=== PATIENT | male | born 1970 | race Two or more races ===

== ENCOUNTER 2023-09-22 13:53 | Inpatient (IN) | payer MEDICAID, OTHER ==
[~2023-09-22] VITALS: Ht 185.4 cm; Wt 89.1 kg
[2023-09-22 16:16] LABS: Basophils # (auto) 0.1 10 ^3/uL (0-0.2); Basophils % (auto) 0.9 % (0.0-2.0); Eosinophils # (auto) 0.1 10 ^3/uL (0-0.8); Eosinophils % (auto) 1.5 % (0.0-7.0); Hematocrit 34.3 % (41.0-53.0); Hemoglobin 11.3 g/dL (13.5-17.5); Lymphocytes # (auto) 1.6 10 ^3/uL (0.4-5.4); Lymphocytes % (auto) 19.4 % (10.0-50.0); Mean Corpuscular Hemoglobin 28.1 pg (28.0-32.0); Mean Corpuscular Hgb Conc. 32.9 g/dL (32.0-36.0); Mean Corpuscular Volume 85.6 fL (80.0-100.0); Monocytes # (auto) 0.8 10 ^3/uL (0-1.3); Monocytes % (auto) 9.5 % (0.0-12.0); Neutrophils # (auto) 5.7 10 ^3/uL (1.6-8.6); Neutrophils % (auto) 68.7 % (37.0-80.0); Nucleated Red Blood Cells % 0.1 %; Red Blood Cells 4.01 10^6/uL (4.5-5.90); Red Cell Distribution Width 12.5 % (11.8-14.3); White Blood Cell 8.3 10^3/uL (4.4-10.8)
[2023-09-22 16:37] LABS: Alanine Aminotransferase 19 U/L (7-40); Alkaline Phosphatase 78 U/L (46-116); Calcium 8.3 mg/dL (8.7-10.4); Chloride 108 mmol/L (98-107)
[2023-09-22 16:38] LABS: Albumin 3.3 g/dL (3.2-4.8); Anion Gap 3 (5-15); Aspartate Aminotransferase 13 U/L (13-40); BUN/Creatinine Ratio 28.6 (10.0-20.0); Bilirubin, Total 0.4 mg/dL (0.2-1.0); Blood Urea Nitrogen 26 mg/dL (9-23); Carbon Dioxide 27 mmol/L (20-30); Glucose 177 mg/dL (74-106); Potassium 4.5 mmol/L (3.5-5.1); Sodium 138 mmol/L (136-145); Total Protein 5.6 g/dL (5.7-8.2)
[2023-09-22] MEDS ORDERED: ACETAMINOPHEN 325 MG TAB PO PRN (18:45)
[2023-09-22] MEDS ORDERED: DEXTROSE (50%) 50ML SYRG IV PRN (18:45)
[2023-09-22] MEDS ORDERED: HYDROcodone-ACET 5/325MG TAB PO PRN (18:45)
[2023-09-22] MEDS ORDERED: DOCUSATE SOD 100 MG CAP PO PRN (18:45)
[2023-09-22] MEDS ORDERED: NITROGLYCERIN 0.4 MG SL TAB SL PRN (18:45)
[2023-09-22] MEDS ORDERED: ONDANSETRON HCL 4 MG/2 ML VIAL IV PRN (18:45)
[2023-09-22] MEDS ORDERED: MORPHINE SULFATE INJ 2 MG/ml SYRG IV PRN ×2 (18:45)
[2023-09-22] MEDS: SODIUM CHLORIDE 0.9% 1,000 ML IV ONE (19:03)
[2023-09-22] MEDS: VANCOMYCIN 1GM/200ML 200 ML IV ONE (19:37)
[2023-09-22 19:44] VITALS: PULSE 88; RESP 18; O2SAT 98
[2023-09-23] MEDS: ceFAZolin 1GM/50ML 50 ML IV SCH (04:26)
[2023-09-23] MEDS: InsuLIN REG 1unit/0.01ml Soln (100units/ml) SC SCH (04:35)
[2023-09-23] MEDS: ACCU-CHEK COMFORT CURVE STRIP VI SCH (04:35)
[2023-09-23 05:32] LABS: Basophils # (auto) 0.1 10 ^3/uL (0-0.2); Basophils % (auto) 0.9 % (0.0-2.0); Eosinophils # (auto) 0.2 10 ^3/uL (0-0.8); Eosinophils % (auto) 2.6 % (0.0-7.0); Hematocrit 35.3 % (41.0-53.0); Hemoglobin 11.6 g/dL (13.5-17.5); Lymphocytes # (auto) 1.7 10 ^3/uL (0.4-5.4); Lymphocytes % (auto) 23.6 % (10.0-50.0); Mean Corpuscular Hemoglobin 27.8 pg (28.0-32.0); Mean Corpuscular Volume 84.5 fL (80.0-100.0); Monocytes # (auto) 0.7 10 ^3/uL (0-1.3); Monocytes % (auto) 9.9 % (0.0-12.0); Neutrophils # (auto) 4.4 10 ^3/uL (1.6-8.6); Nucleated Red Blood Cells % 0.1 %; Red Blood Cells 4.18 10^6/uL (4.5-5.90); Red Cell Distribution Width 12.8 % (11.8-14.3)
[2023-09-23 05:43] LABS: Alanine Aminotransferase 14 U/L (7-40); Albumin 3.6 g/dL (3.2-4.8); Alkaline Phosphatase 81 U/L (46-116); Anion Gap 5 (5-15); Aspartate Aminotransferase 12 U/L (13-40); BUN/Creatinine Ratio 20.9 (10.0-20.0); Blood Urea Nitrogen 18 mg/dL (9-23); Calcium 8.7 mg/dL (8.7-10.4); Carbon Dioxide 27 mmol/L (20-30); Chloride 108 mmol/L (98-107); Glucose 180 mg/dL (74-106); Sodium 140 mmol/L (136-145)
[2023-09-23 05:44] LABS: Bilirubin, Total 0.5 mg/dL (0.2-1.0); Total Protein 6.5 g/dL (5.7-8.2)
[2023-09-23 07:22] VITALS: PULSE 88; RESP 18; O2SAT 98
[2023-09-23 12:19] LABS: INR 0.95 (0.9-1.15); Partial Thromboplastin Time 26.1 SEC (24.5-34.5); Prothrombin Time 10.1 sec (9.3-11.8)
[2023-09-23 13:06] LABS: Magnesium 1.9 mg/dL (1.6-2.6)
[2023-09-23 13:08] LABS: Phosphorus 3.2 mg/dL (2.4-5.1)
[2023-09-23] MEDS: ERGOCALCIFEROL 50,000 UNIT(1.25MG) CAP PO SCH (21:45)
[2023-09-23] MEDS: ENALAPRIL MALEATE 2.5 MG TAB PO SCH (22:29)
[2023-09-23] MEDS: ATORVASTATIN 20 MG TAB PO SCH (22:29)
[2023-09-23 22:45] VITALS: PULSE 99; RESP 18; O2SAT 98
[2023-09-23 23:24] VITALS: BP 207/96; PULSE 75; PULSE 92; RESP 18; RESP 19; TEMP 98.4; O2SAT 98
[2023-09-23] MEDS: hydrALAZINE HCL 20 MG/ML VL IV PRN (23:26)
[2023-09-24] VITALS (8 sets, daily range): BP systolic 132–180; BP diastolic 66–81; PULSE 69–100; RESP 17–19; TEMP 98–99.1; O2SAT 97–98
[2023-09-24] MEDS: dilTIAZem 25 MG/5 ML VIAL IV ONE (01:18)
[2023-09-24] MEDS ORDERED: METF-370 PO (02:28)
[2023-09-24] MEDS: cloNIDine HCL 0.1 MG TAB PO ONE (03:17)
[2023-09-24 05:53] LABS: Basophils # (auto) 0 10 ^3/uL (0-0.2); Basophils % (auto) 0.4 % (0.0-2.0); Eosinophils # (auto) 0.1 10 ^3/uL (0-0.8); Eosinophils % (auto) 1.6 % (0.0-7.0); Hematocrit 31.2 % (41.0-53.0); Hemoglobin 10.5 g/dL (13.5-17.5); Lymphocytes # (auto) 1.3 10 ^3/uL (0.4-5.4); Lymphocytes % (auto) 18.3 % (10.0-50.0); Mean Corpuscular Hemoglobin 28.8 pg (28.0-32.0); Mean Corpuscular Hgb Conc. 33.8 g/dL (32.0-36.0); Mean Corpuscular Volume 85.2 fL (80.0-100.0); Monocytes # (auto) 0.7 10 ^3/uL (0-1.3); Monocytes % (auto) 10.2 % (0.0-12.0); Neutrophils # (auto) 5.1 10 ^3/uL (1.6-8.6); Neutrophils % (auto) 69.5 % (37.0-80.0); Nucleated Red Blood Cells % 0.1 %; Red Blood Cells 3.66 10^6/uL (4.5-5.90); Red Cell Distribution Width 12.5 % (11.8-14.3); White Blood Cell 7.3 10^3/uL (4.4-10.8)
[2023-09-24 06:04] LABS: Alanine Aminotransferase 11 U/L (7-40); Albumin 2.9 g/dL (3.2-4.8); Alkaline Phosphatase 69 U/L (46-116); Anion Gap 5 (5-15); Aspartate Aminotransferase 11 U/L (13-40); BUN/Creatinine Ratio 21.8 (10.0-20.0); Blood Urea Nitrogen 17 mg/dL (9-23); Calcium 8.5 mg/dL (8.7-10.4); Carbon Dioxide 27 mmol/L (20-30); Chloride 109 mmol/L (98-107); Glucose 172 mg/dL (74-106); Magnesium 1.7 mg/dL (1.6-2.6); Potassium 3.6 mmol/L (3.5-5.1); Sodium 141 mmol/L (136-145)
[2023-09-24 06:05] LABS: Bilirubin, Total 0.5 mg/dL (0.2-1.0); Phosphorus 3.5 mg/dL (2.4-5.1); Total Protein 5.5 g/dL (5.7-8.2)
[2023-09-24] MEDS: FUROSEMIDE 20 MG/2 ML VIAL IV SCH (06:23)
[2023-09-24] MEDS: ASPirin 81 mg TAB PO SCH (10:16)
[2023-09-24 10:24] LABS: Urine Bacteria FEW /hpf (None Seen); Urine Blood TRACE /uL (Negative); Urine Clarity Clear (Clear); Urine Color Light-Yellow (Yellow); Urine Mucus FEW (None Seen); Urine Protein, UAD 1+ (Negative); Urine Specific Gravity 1.009 (1.001-1.035); Urine Sperm PRESENT /hpf (None Seen); Urine Urobilinogen Normal (Negative); Urine WBC 2 /hpf (0 - 3); Urine pH 5.5 (5.0-9.0)
[2023-09-24 10:29] LABS: Amphetamine Screen, Urine Neg (NEGATIVE)
[2023-09-24 10:31] LABS: Barbiturate Scree,Urine Neg (NEGATIVE); Benzodiazephine Screen, Urine Neg (NEGATIVE); Cannabinoid Screen, Urine Neg (NEGATIVE); Cocaine Screen, Urine Neg (NEGATIVE); Opiate Scree,Urine Neg (NEGATIVE); Phencyclidine Screen, Urine Neg (NEGATIVE)
[2023-09-24] MEDS ORDERED: MORPHINE SULFATE 4 MG/ML SYR/VIAL IV PRN ×2 (20:45)
[2023-09-24] MEDS: DAKINS QUARTER STR 0.125% (NaHypochlorite) 473 ML TOPICAL SOL TOP SCH (21:55)
[2023-09-25] VITALS (7 sets, daily range): BP systolic 143–175; BP diastolic 68–92; PULSE 72–81; RESP 17–19; TEMP 97.8–98.7; O2SAT 97–99
[2023-09-25 06:50] LABS: Basophils # (auto) 0.1 10 ^3/uL (0-0.2); Basophils % (auto) 0.7 % (0.0-2.0); Eosinophils # (auto) 0.2 10 ^3/uL (0-0.8); Eosinophils % (auto) 2.2 % (0.0-7.0); Hematocrit 32.9 % (41.0-53.0); Hemoglobin 11.1 g/dL (13.5-17.5); Lymphocytes % (auto) 26.4 % (10.0-50.0); Mean Corpuscular Hemoglobin 28.5 pg (28.0-32.0); Mean Corpuscular Hgb Conc. 33.7 g/dL (32.0-36.0); Mean Corpuscular Volume 84.5 fL (80.0-100.0); Monocytes # (auto) 0.8 10 ^3/uL (0-1.3); Monocytes % (auto) 10.3 % (0.0-12.0); Neutrophils # (auto) 4.6 10 ^3/uL (1.6-8.6); Neutrophils % (auto) 60.4 % (37.0-80.0); Red Blood Cells 3.89 10^6/uL (4.5-5.90); Red Cell Distribution Width 12.6 % (11.8-14.3); White Blood Cell 7.7 10^3/uL (4.4-10.8)
[2023-09-25 07:10] LABS: Anion Gap 6 (5-15); Carbon Dioxide 28 mmol/L (20-30); Chloride 106 mmol/L (98-107); Potassium 3.7 mmol/L (3.5-5.1); Sodium 140 mmol/L (136-145)
[2023-09-25 07:11] LABS: Calcium 8.8 mg/dL (8.7-10.4)
[2023-09-25 07:16] LABS: BUN/Creatinine Ratio 17.9 (10.0-20.0); Blood Urea Nitrogen 15 mg/dL (9-23); Glucose 120 mg/dL (74-106)
[2023-09-25 09:09] LABS: Hepatitis B Surface Antigen Negative (Negative)
[2023-09-25 09:31] LABS: Hepatitis C Antibody Negative (Negative)
[2023-09-25] MEDS ORDERED: METF-372 PO (12:10)
[2023-09-25] MEDS ORDERED: ERGO1CAP23 PO (12:10)
[2023-09-25] MEDS ORDERED: ENAL1TAB42 PO (12:10)
[2023-09-25] MEDS ORDERED: CEPH250C PO (12:10)
[2023-09-25] MEDS ORDERED: EMPA1TAB PO (12:10)
[2023-09-25] MEDS ORDERED: ATOR20TA50 PO (12:10)
[2023-09-25] MEDS ORDERED: ASPI-325 PO (12:10)
[2023-09-25] MEDS ORDERED: ACET-1882 PO (12:10)
== END 2023-09-25 17:15 | disposition home or self-care (01) | DRG 380 ==
LOC: ER 13:53 → OVERFLOW 18:43 → WEST WING 09-23 23:08
PROVIDERS: ADMIT Internal Medicine; ATTEND Student in an Organized Health Care Education/Training Program
DX: E11.621 Type 2 diabetes mellitus with foot ulcer (principal); L97.519 Non-pressure chronic ulcer of other part of right foot with unspecified severity; E11.51 Type 2 diabetes mellitus with diabetic peripheral angiopathy without gangrene; S91.301A Unspecified open wound, right foot, initial encounter; D64.9 Anemia, unspecified; E55.9 Vitamin D deficiency, unspecified; L03.031 Cellulitis of right toe; E78.5 Hyperlipidemia, unspecified; I10 Essential (primary) hypertension; X58.XXXA Exposure to other specified factors, initial encounter; Y93.89 Activity, other specified; Y92.89 Other specified places as the place of occurrence of the external cause; Y99.8 Other external cause status
CPT/HCPCS: 36415; 73630; 80048; 80053; 80061; 80307; 81001; 82306; 82607; 82962; 83036; 83605; 83735; 83880; 84100; 84443; 85025; 85610; 85730; 86803; 87040; 87077; 87086; 87186; 87205; 87340; 93005; 93306; 93925; 93971; G0378; J1815

== ENCOUNTER 2023-10-11 16:06 | Emergency (ER) | payer MEDICAID ==
[~2023-10-11] VITALS: Ht 188 cm; Wt 83.8 kg
[~2023-10-11 16:06] MED LIST: ACET-1882 PO; ASPI-325 PO; ATOR20TA50 PO; CEPH250C PO; EMPA1TAB PO; ENAL1TAB42 PO; ERGO1CAP23 PO; METF-372 PO
[2023-10-11 16:58] VITALS: BP 132/77; PULSE 99; RESP 18; TEMP 97.9; O2SAT 98
[2023-10-11] MEDS ORDERED: BACDST PO (17:24)
[2023-10-11] MEDS ORDERED: CEPH500T PO (17:24)
[2023-10-11] MEDS: cefTRIAXone SOD 1,000 MG VL IM ONE (17:26)
== END 2023-10-11 17:39 | disposition home or self-care (01) ==
LOC: ER 16:06
DX: S91.332A Puncture wound without foreign body, left foot, initial encounter (principal); L08.89 Other specified local infections of the skin and subcutaneous tissue; I10 Essential (primary) hypertension; E11.9 Type 2 diabetes mellitus without complications; E78.5 Hyperlipidemia, unspecified; Z79.899 Other long term (current) drug therapy; W22.8XXA Striking against or struck by other objects, initial encounter; Y93.89 Activity, other specified; Y92.89 Other specified places as the place of occurrence of the external cause; Y99.8 Other external cause status
CPT/HCPCS: 96372; 99283; J0696

== ENCOUNTER 2023-10-28 13:28 | Inpatient (IN) | payer MEDICAID ==
[~2023-10-28] VITALS: Ht 188 cm; Wt 84.0 kg
[~2023-10-28 13:28] MED LIST changes: +BACDST PO; +CEPH500T PO
[2023-10-28 15:08] LABS: Basophils # (auto) 0.1 10 ^3/uL (0-0.2); Eosinophils # (auto) 0.1 10 ^3/uL (0-0.8); Eosinophils % (auto) 1.8 % (0.0-7.0); Hematocrit 31.6 % (41.0-53.0); Hemoglobin 10.6 g/dL (13.5-17.5); Lymphocytes # (auto) 1.2 10 ^3/uL (0.4-5.4); Lymphocytes % (auto) 17.2 % (10.0-50.0); Mean Corpuscular Hemoglobin 28.2 pg (28.0-32.0); Mean Corpuscular Hgb Conc. 33.4 g/dL (32.0-36.0); Mean Corpuscular Volume 84.6 fL (80.0-100.0); Monocytes # (auto) 0.6 10 ^3/uL (0-1.3); Monocytes % (auto) 8.7 % (0.0-12.0); Neutrophils % (auto) 71.3 % (37.0-80.0); Nucleated Red Blood Cells % 0.1 %; Red Blood Cells 3.74 10^6/uL (4.5-5.90); Red Cell Distribution Width 13.4 % (11.8-14.3)
[2023-10-28 15:30] LABS: Alanine Aminotransferase 16 U/L (7-40); Albumin 3.8 g/dL (3.2-4.8); Alkaline Phosphatase 97 U/L (46-116); Anion Gap 3 (5-15); Aspartate Aminotransferase 15 U/L (13-40); BUN/Creatinine Ratio 24.7 (10.0-20.0); Bilirubin, Total 0.7 mg/dL (0.2-1.0); Blood Urea Nitrogen 23 mg/dL (9-23); CRP High Sensitivity 0.98 mg/dL (<1.0); Calcium 9.3 mg/dL (8.5-10.1); Carbon Dioxide 29 mmol/L (20-30); Chloride 106 mmol/L (98-107); Glucose 263 mg/dL (74-106); Potassium 4.3 mmol/L (3.5-5.1); Sodium 138 mmol/L (136-145); Total Protein 6.5 g/dL (5.7-8.2)
[2023-10-28] MEDS ORDERED: VANCOMYCIN PER PHARMACY 0 MG IV SCH ×2 (15:30→16:30)
[2023-10-28 15:52] LABS: Erythrocyte Sedimentation Rate 60 mm/hr (0-20)
[2023-10-28] MEDS ORDERED: VANCOMYCIN 1GM/200ML 200 ML IV ONE (16:00)
[2023-10-28 16:25] VITALS: PULSE 97; RESP 20; O2SAT 96
[2023-10-28] MEDS ORDERED: DEXTROSE (50%) 50ML SYRG IV PRN (16:30)
[2023-10-28] MEDS: AMPICILLIN & SULBACTAM SODIUM 3 GM in SODIUM CHL 0.9% 100 ML IV SCH (16:30)
[2023-10-28] MEDS ORDERED: ONDANSETRON HCL 4 MG/2 ML VIAL IV PRN (16:30)
[2023-10-28] MEDS ORDERED: MORPHINE SULFATE INJ 2 MG/ml SYRG IV PRN (16:30)
[2023-10-28] MEDS ORDERED: HYDROcodone-ACET 5/325MG TAB PO PRN (16:30)
[2023-10-28] MEDS ORDERED: DOCUSATE SOD 100 MG CAP PO PRN (16:30)
[2023-10-28] MEDS ORDERED: ACETAMINOPHEN 325 MG TAB PO PRN (16:30)
[2023-10-28] MEDS: ACCU-CHEK COMFORT CURVE STRIP VI SCH (17:00)
[2023-10-28] MEDS: InsuLIN REG 1unit/0.01ml Soln (100units/ml) SC SCH (17:00)
[2023-10-28] MEDS: PIPERACILLIN-TAZOB 3.375GM 100 ML IV ONE (19:38)
[2023-10-28] MEDS: VANCOMYCIN 1GM/200ML 200 ML IV SCH (20:19)
[2023-10-28] MEDS ORDERED: IOHEXOL 350 MG/ML 100ML IJ ONE (21:54)
[2023-10-28 22:49] VITALS: BP 180/87; PULSE 96; RESP 17; TEMP 98.8; O2SAT 98
[2023-10-28 22:51] VITALS: PULSE 96; RESP 17; O2SAT 98
[2023-10-28] MEDS: ATORVASTATIN 20 MG TAB PO SCH (23:12)
[2023-10-28] MEDS: ENALAPRIL MALEATE 2.5 MG TAB PO SCH (23:12)
[2023-10-28] MEDS ORDERED: ACET-1881 PO (23:44)
[2023-10-28 23:47] VITALS: BP 180/87; PULSE 96; RESP 19; TEMP 98.8; O2SAT 98
[2023-10-29] VITALS (8 sets, daily range): BP systolic 119–175; BP diastolic 69–84; PULSE 76–86; RESP 15–18; TEMP 97.3–99.1; O2SAT 97–99
[2023-10-29] MEDS: cloNIDine HCL 0.1 MG TAB PO ONE (05:47)
[2023-10-29 07:11] LABS: Basophils # (auto) 0.1 10 ^3/uL (0-0.2); Basophils % (auto) 1.1 % (0.0-2.0); Eosinophils # (auto) 0.2 10 ^3/uL (0-0.8); Eosinophils % (auto) 2.6 % (0.0-7.0); Hematocrit 29.8 % (41.0-53.0); Hemoglobin 10.1 g/dL (13.5-17.5); Lymphocytes # (auto) 1.1 10 ^3/uL (0.4-5.4); Lymphocytes % (auto) 17.7 % (10.0-50.0); Mean Corpuscular Hemoglobin 28.1 pg (28.0-32.0); Mean Corpuscular Hgb Conc. 33.8 g/dL (32.0-36.0); Mean Corpuscular Volume 83.1 fL (80.0-100.0); Monocytes # (auto) 0.5 10 ^3/uL (0-1.3); Monocytes % (auto) 8.3 % (0.0-12.0); Neutrophils # (auto) 4.6 10 ^3/uL (1.6-8.6); Neutrophils % (auto) 70.3 % (37.0-80.0); Red Blood Cells 3.58 10^6/uL (4.5-5.90); Red Cell Distribution Width 13.5 % (11.8-14.3); White Blood Cell 6.5 10^3/uL (4.4-10.8)
[2023-10-29 07:19] LABS: Alanine Aminotransferase 14 U/L (7-40); Alkaline Phosphatase 84 U/L (46-116); Anion Gap 6 (5-15); BUN/Creatinine Ratio 20.7 (10.0-20.0); Blood Urea Nitrogen 18 mg/dL (9-23); Calcium 8.9 mg/dL (8.5-10.1); Carbon Dioxide 26 mmol/L (20-30); Chloride 108 mmol/L (98-107); Sodium 140 mmol/L (136-145)
[2023-10-29 07:20] LABS: Albumin 3.4 g/dL (3.2-4.8); Aspartate Aminotransferase 13 U/L (13-40); Bilirubin, Total 0.5 mg/dL (0.2-1.0); Total Protein 6.3 g/dL (5.7-8.2)
[2023-10-29 07:26] LABS: Glucose 132 mg/dL (74-106)
[2023-10-29] MEDS ORDERED: LABETALOL HCL 5 MG/ML 4ML SYRINGE IV PRN (10:30)
[2023-10-29] MEDS ORDERED: ENALAPRIL MALEATE 10 MG TAB PO ONE (10:45)
[2023-10-29] MEDS: ENALAPRIL MALEATE 2.5 MG TAB PO ONE (10:50)
[2023-10-29 11:16] LABS: % Iron Saturation 12.1 % (20-55)
[2023-10-29 11:18] LABS: Triglycerides 67 mg/dL (< 150)
[2023-10-29 11:19] LABS: LDL Cholesterol 106 mg/dL (< 100)
[2023-10-29 11:20] LABS: Cholesterol 147 mg/dL (< 200); HDL Cholesterol 38 mg/dL (40-59)
[2023-10-29] MEDS ORDERED: DEXTROSE (50%) 50ML SYRG IV PRN (12:00)
[2023-10-29] MEDS: INSULIN LANTUS (GLARGINE) 1 /0.01ml (100units/ml) SC ONE (12:00)
[2023-10-29] MEDS: ceFAZolin 1GM/50ML 50 ML IV SCH (12:32)
[2023-10-29 12:43] LABS: INR 1.01 (0.9-1.15); Partial Thromboplastin Time 26.8 SEC (24.5-34.5); Prothrombin Time 10.7 sec (9.3-11.8)
[2023-10-29] MEDS: ACCU-CHEK COMFORT CURVE STRIP VI SCH (17:00)
[2023-10-29] MEDS: InsuLIN REG 1unit/0.01ml Soln (100units/ml) SC SCH ×2 (17:00→21:18)
[2023-10-29] MEDS: ENALAPRIL MALEATE 10 MG TAB PO SCH (21:09)
[2023-10-29] MEDS ORDERED: ENALAPRIL MALEATE 10 MG TAB PO SCH (22:00)
[2023-10-30 01:00] VITALS: BP 144/70; PULSE 90; RESP 18; TEMP 98; O2SAT 97
[2023-10-30 05:00] VITALS: BP 156/79; PULSE 85; RESP 19; TEMP 97.9; O2SAT 98
[2023-10-30] MEDS: INSULIN LANTUS (GLARGINE) 1 /0.01ml (100units/ml) SC SCH (06:37)
[2023-10-30 07:08] LABS: Basophils # (auto) 0.1 10 ^3/uL (0-0.2); Eosinophils # (auto) 0 10 ^3/uL (0-0.8); Eosinophils % (auto) 0.6 % (0.0-7.0); Hematocrit 30.3 % (41.0-53.0); Hemoglobin 10.2 g/dL (13.5-17.5); Lymphocytes # (auto) 1.4 10 ^3/uL (0.4-5.4); Lymphocytes % (auto) 17.3 % (10.0-50.0); Mean Corpuscular Hgb Conc. 33.5 g/dL (32.0-36.0); Mean Corpuscular Volume 83.5 fL (80.0-100.0); Monocytes # (auto) 0.5 10 ^3/uL (0-1.3); Neutrophils # (auto) 5.8 10 ^3/uL (1.6-8.6); Neutrophils % (auto) 74.1 % (37.0-80.0); Nucleated Red Blood Cells % 0.1 %; Red Blood Cells 3.63 10^6/uL (4.5-5.90); Red Cell Distribution Width 13.6 % (11.8-14.3); White Blood Cell 7.8 10^3/uL (4.4-10.8)
[2023-10-30 07:19] LABS: Anion Gap 6 (5-15); Carbon Dioxide 27 mmol/L (20-30); Chloride 108 mmol/L (98-107); Potassium 4.1 mmol/L (3.5-5.1); Sodium 141 mmol/L (136-145)
[2023-10-30 07:25] LABS: BUN/Creatinine Ratio 19.5 (10.0-20.0); Blood Urea Nitrogen 16 mg/dL (9-23); Glucose 94 mg/dL (74-106)
[2023-10-30 07:26] LABS: Magnesium 1.8 mg/dL (1.6-2.6)
[2023-10-30] MEDS ORDERED: GLIP5TAB21 PO (08:44)
[2023-10-30] MEDS ORDERED: METF-372 PO (08:44)
[2023-10-30] MEDS ORDERED: ENAL1TAB42 PO (08:44)
[2023-10-30] MEDS ORDERED: FER325T PO (08:44)
[2023-10-30] MEDS ORDERED: AUG875T PO (08:44)
[2023-10-30 09:22] VITALS: BP 157/73; PULSE 74; RESP 20; TEMP 97.9; O2SAT 98
[2023-10-30] MEDS: ENALAPRIL MALEATE 2.5 MG TAB PO SCH (09:30)
[2023-10-30] MEDS: FERROUS SULFATE 325mg EC TAB PO SCH (09:30)
[2023-10-30 12:36] VITALS: BP 157/75; PULSE 67; RESP 21; TEMP 98.1; O2SAT 98
[2023-10-30 16:23] VITALS: BP 157/73; TEMP 36.7
== END 2023-10-30 16:50 | disposition home or self-care (01) | DRG 380 ==
LOC: ER 13:28 → OVERFLOW 16:27 → WEST WING 22:33
PROVIDERS: ADMIT Internal Medicine Pulmonary Disease; ATTEND Internal Medicine Pulmonary Disease
DX: L97.529 Non-pressure chronic ulcer of other part of left foot with unspecified severity (principal); E11.621 Type 2 diabetes mellitus with foot ulcer; S91.332A Puncture wound without foreign body, left foot, initial encounter; L03.116 Cellulitis of left lower limb; E78.5 Hyperlipidemia, unspecified; D64.9 Anemia, unspecified; I10 Essential (primary) hypertension; W45.0XXA Nail entering through skin, initial encounter; Y93.89 Activity, other specified; Y92.89 Other specified places as the place of occurrence of the external cause; Y99.8 Other external cause status
CPT/HCPCS: 36415; 73701; 80048; 80053; 80061; 80202; 82728; 82962; 83036; 83540; 83550; 83605; 83735; 83880; 84443; 85025; 85610; 85652; 85730; 86141; 87040; 87081; 87205; G0378; J1815; J2543

== ENCOUNTER 2024-04-10 15:45 | Inpatient (IN) | payer MEDICAID ==
[~2024-04-10] VITALS: Ht 185.4 cm; Wt 83.9 kg
[~2024-04-10 15:45] MED LIST changes: +AUG875T PO; -BACDST PO; -CEPH250C PO; -CEPH500T PO; +FER325T PO; +GLIP5TAB21 PO
--- NOTE | 2024-04-10 16:06 | ED.PDOC ---
GI ASSESSMENT HPI Comments 53Y M with PMHx DM, HTN, and HLD presents to ED for chief complaint GI bleed x3wks. Pt states his bowel movements are dark brown and blood-streaked. Pt also reports excessive flatulence and rectal pain. Rectal pain is rated at a level of 5/10. Pt denies nausea, vomiting, fever, chest pain, and SOB. Pt has appt with a provider on 04/14/2024 and has never had a colonoscopy before. Time Seen by MD: 15:50 Primary Care Provider: KEITH Reviewed Notes: Medications, Allergies Allergies: Coded Allergies: NO KNOWN ALLERGIES (Unverified , 09/22/23) Home Meds Active Scripts Glipizide (Glipizide) 5 Mg Tab, 1 TAB PO DAILY for 30 Days, #30 TAB 3 Refills Prov:PARMINDER BURNETTE RESIDENT 10/30/23 Amoxicillin & Pot Clavulanate (AUGMENTIN TABLET) 875 Mg Tb, 875 MG PO BID for 7 Days, #14 TAB Prov:PARMINDER BURNETTE [facility] 10/30/23 Ferrous Sulfate (Ferrous Sulfate) 325 Mg Tab, 325 MG PO DAILY for 30 Days, #30 TAB 2 Refills Prov:PARMINDER BURNETTE [facility] 10/30/23 Enalapril Maleate (Enalapril Maleate) 2.5 Mg Tab, 5 MG PO Q12HR for 30 Days, #120 TAB 2 Refills Prov:PARMINDER BURNETTE [facility] 10/30/23 Metformin Hydrochloride (Metformin Hcl) 1,000 Mg Tab, 1000 MG PO BID for 30 Days, #60 TAB Prov:PARMINDER BURNETTE [facility] 10/30/23 Empagliflozin (Jardiance) 10 Mg Tab, 10 MG PO DAILY for 30 Days, #30 TAB Prov:QUINTIN MONACO [facility] 09/25/23 Ergocalciferol (VITAMIN D 29551 UNIT) 50,[address] [place], [address] UNIT PO Q7D for 30 Days, #10 CAP Prov:QUINTIN MONACO [facility] 09/25/23 Atorvastatin Calcium (ATORVASTATIN CALCIUM) 20 Mg Tab, 20 MG PO HS for 30 Days, #30 TAB Prov:QUINTIN MONACO [facility] 09/25/23 Aspirin (Aspirin Low Dose) 81 Mg Tab, 81 MG PO DAILY for 30 Days, #30 TAB Prov:QUINTIN MONACO RESIDENT 09/25/23 Acetaminophen (Acetaminophen) 325 Mg Tab, 650 MG PO Q6HP PRN for 30 Days, #240 TAB Prov:PRESTONJAKOBQUINTIN RESIDENT 09/25/23 Information Source: Patient Mode of Arrival: Ambulatory Timing: Weeks Duration: Intermittent Quality: Sharp Vomitus: None Stool: Blood Streaked Severity: Mild Recent: None Recent Hx of: None Pain Location: Other (rectal) Modifying Factors: Nothing Associated sign and symptoms: Blood in Stool, Other Past Medical History PAST MEDICAL HISTORY: DM, High Lipids, HTN Surgical History: Denies all surgeries Family History Family History: Reviewed,noncontributory to illness Social History Smoker: Non-Smoker Alcohol: Denies ETOH Use Drugs: Denies Drug Use Lives In: Home Constitutional: denies: chills, diaphoresis, fatigue, fever, malaise, sweats, weakness, others EENTM: denies: blurred vision, double vision, ear bleeding, ear discharge, ear drainage, ear pain, ear ringing, eye pain, eye redness, hearing loss, mouth pain, mouth swelling, nasal discharge, nose bleeding, nose congestion, nose pain, photophobia, tearing, throat pain, throat swelling, voice changes, others Respiratory: denies: cough, hemoptysis, orthopnea, SOB at rest, shortness of breath, SOB with excertion, stridor, wheezing, others Cardiovascular: denies: chest pain, dizzy spells, diaphoresis, Dyspnea on exertion, edema, irregular heart beat, left arm pain, lightheadedness, palpitations, PND, syncope, others Gastrointestinal: reports: blood streaked bowels, rectal pain, others (flatulence); denies: abdomen distended, abdominal pain, constipated, diarrhea, dysphagia, difficulty swallowing, hematemesis, melena, nausea, poor appetite, poor fluid intake, rectal bleeding, vomiting Genitourinary: denies: burning, dysuria, flank pain, frequency, hematuria, incontinence, penile discharge, penile sore, pain, testicle pain, testicle swelling, urgency, others Neurological: denies: dizziness, fainting, headache, left sided numbness, left sided weakness, numbness, paresthesia, pre-existing deficit, right sided numbness, right sided weakness, seizure, speech problems, tingling, tremors, weakness, others Musculoskeletal: denies: back pain, gout, joint pain, joint swelling, muscle pain, muscle stiffness, neck pain, others Integumetry: denies: bruises, change in color, change in hair/nails, dryness, laceration, lesions, lumps, rash, wounds, others Allergic/Immunocompromised: denies: Difficulty Healing, Frequent Infections, Hives, Itching, others Hematologic/Lymphatic: denies: anemia, blood clots, easy bleeding, easy bruising, swollen glands, others Endocrine: denies: excessive hunger, excessive sweating, excessive thirst, excessive urination, flushing, intolerance to cold, intolerance to heat, unexplained weight gain, unexplained weight loss, others Psychiatric: denies: anxiety, bipolar disorder, depression, hopeless, panic disorder, schizophrenia, sleepless, suicidal, others All Other Systems: Reviewed and Negative Physical Exam General Appearance: No Apparent Distress, Normal HEENT: Normal ENT Inspection, Pharynx Normal, TMs Normal Neck: Full Range of Motion, Non-Tender, Normal, Normal Inspection Respiratory: Chest Non-Tender, Lungs Clear, No Accessory Muscle Use, No Respiratory Distress, Normal Breath Sounds Cardiovascular: No Edema, No JVD, No Murmur, No Gallop, Normal Peripheral Pulses, Regular Rate/Rhythm Breast Exam: Deferred Gastrointestinal: No Organomegaly, Non Tender, No Pulsatile Mass, Normal Bowel Sounds, Soft Genitalia: Deferred Pelvic: Deferred Rectal: Deferred Extremities: No calf tenderness, Normal capillary refill, Normal inspection, Normal range of motion, Non-tender, No pedal edema Musculoskeletal : Apperance: Normal Neurologic: Alert, studio couch frame builder II-XII nml as Tested, No Motor Deficits, Normal Affect, Normal Mood, No Sensory Deficits Cerebellar Function: NOT DONE Reflexes: NOT DONE Skin: Dry, Normal Color, Warm Lymphatic: No Adenopathy Was a procedure done? Was a procedure done?: No GI differential Dx Differential Diagnosis: Cholangitis, Cholecystitis, Gastritis/PUD, Gastroenteritis, GI hemorrhage, Trauma intraabdominal, Other (hemorrhoids) X-Ray, Labs, Meds, VS Vital Signs Date Time Temp Pulse Resp B/P (MAP) Pulse Ox O2 Delivery O2 Flow Rate FiO2 04/10/24 16:14 97.7 105 17 153/91 (111) 98 97.7 04/10/24 16:14 105 17 98 Room Air 04/10/24 15:52 98.3 107 18 178/83 (114) 99 Lab Test 04/10/24 16:11 Range/Units White Blood Count 8.5 4.4-10.8 10^3/uL Red Blood Count 3.82 L 4.5-5.90 10^6/uL Hemoglobin 11.0 L 13.5-17.5 g/dL Hematocrit 32.1 L 41.0-53.0 % Mean Corpuscular Volume 84.0 80.0-100.0 fL Mean Corpuscular Hemoglobin 28.8 28.0-32.0 pg Mean Corpuscular Hemoglobin Concent 34.3 32.0-36.0 g/dL Red Cell Distribution Width 13.4 11.8-14.3 % Platelet Count 286 140-450 10^3/uL Mean Platelet Volume 9.0 6.9-10.8 fL Neutrophils (%) (Auto) 77.5 37.0-80.0 % Lymphocytes (%) (Auto) 15.1 10.0-50.0 % Monocytes (%) (Auto) 5.6 0.0-12.0 % Eosinophils (%) (Auto) 1.1 0.0-7.0 % Basophils (%) (Auto) 0.7 0.0-2.0 % Neutrophils # (Auto) 6.6 1.6-8.6 10 ^3/uL Lymphocytes # (Auto) 1.3 0.4-5.4 10 ^3/uL Monocytes # (Auto) 0.5 0-1.3 10 ^3/uL Eosinophils # (Auto) 0.1 0-0.8 10 ^3/uL Basophils # (Auto) 0.1 0-0.2 10 ^3/uL Nucleated Red Blood Cells 0.0 % Sodium Level 137 136-145 mmol/L Potassium Level 4.5 3.5-5.1 mmol/L Chloride Level 103 98-107 mmol/L Carbon Dioxide Level 26 20-31 mmol/L Anion Gap 8 5-15 Blood Urea Nitrogen 29 H 9-23 mg/dL Creatinine 1.58 H 0.700-1.30 mg/dL Glomerular Filtration Rate Calc 53 >90 mL/min BUN/Creatinine Ratio 18.4 10.0-20.0 Serum Glucose 397 H 74-106 mg/dL Lactic Acid Level 1.5 0.4-2.0 mmol/L Calcium Level 9.5 8.7-10.4 mg/dL Total Bilirubin 0.7 0.2-1.0 mg/dL Aspartate Amino Transferase (AST) 13 13-40 U/L Alanine Aminotransferase (ALT) 18 7-40 U/L Alkaline Phosphatase 92 46-116 U/L Total Protein 6.2 5.7-8.2 g/dL Albumin 3.6 3.2-4.8 g/dL Current Medications Medications (Trade) Dose Ordered Sig/Kelly Route Start Time Stop Time Status Last Admin Sodium Chloride 1,000 ml @ 1,000 mls/hr Q1H ONCE IV 04/10/24 16:00 04/10/24 16:59 DC 04/10/24 16:17 Ondansetron HCl (Zofran) 4 mg ONCE ONCE IV 04/10/24 16:00 04/10/24 16:01 DC 04/10/24 16:18 Pantoprazole Sodium (Protonix) 40 mg ONCE ONCE IV 04/10/24 16:00 04/10/24 16:01 DC 04/10/24 16:17 Time of 1ST Reevaluation: 16:20 Reevaluation 1ST: Unchanged Time of 2ND Reevaluation: 17:01 (And were patient's labs including creatinine of 1.58. Would like to proceed with CT with contrast to evaluate for GI bleed) Patient Education/Counseling: Diagnosis, Treatment Family Education/Counseling: No Family Present Additional Information I reviewed the following notes from the pt's past medical encounters: [facility] discharge 11/09/2023 dx lt foot nonhealing diabetic ulcer, [facility] ER dx puncture wound of plantar aspect of lt foot with infection, [facility] discharge 09/25/2023 dx diabetic toe ulcer The following tests were ordered, and results were reviewed by me: CBC, CMP, la ctic acid, CT abd/pelvis W IV contrast I reviewed and agreed with the following test results read by other providers: CT abd/pelvis W IV contrast I discussed treatments and results with medical personnel. Departure 1 Departure Time of Disposition: 17:49 (Patient presented with abdominal pain that was concerning for possible appendicits, gastritis, cholecystitis, colitis, GI bleed, gastroenteritis, sbo, or orther possible surgical emergency. Data: 1. I ordered and reviewed the result of at least 3 labs including a CBC, BMP, and Urinalysis. 2. I independently interpreted the following tests: CT Abdoment and Pelvis is concerning for large stool burden .Risk:This patient has a high risk of morbidity due to further diagnostic testing or treatment and may suffer from an acute abdominal process disorder. Workup reveals uncontrolled diabetes and concern for GI bleed and patient should be admitted for further workup. and possible expert consultation. ) Impression: Primary Impression: Uncontrolled diabetes mellitus Qualified Codes: E11.65 - Type 2 diabetes mellitus with hyperglycemia Additional Impressions: Bright red blood per rectum Abdominal pain Qualified Codes: R10.84 - Generalized abdominal pain Disposition: ADMITTED INPATIENT Admit to: Med Surg Condition: Serious Critical Care Note Critical Care Time?: No Stability Stability form required: No Heart Score Heart Score: Heart Score Response (Comments) Value History N/A 0 EKG N/A 0 Age N/A 0 Risk Factors N/A 0 Troponin N/A 0 Total 0 I personally scribed for SARA DICKEY MD ([email or web address]) on 04/10/24 at 16:06. Electronically submitted by Rebeca Pat ([email or web address]). SARA DICKEY MD Apr 10, 2024 16:06
[2024-04-10] MEDS: PANTOPRAZOLE 40 MG/10 ML VIAL INJ IV ONE (16:17)
[2024-04-10] MEDS: SODIUM CHLORIDE 0.9% 1,000 ML IV ONE (16:17)
[2024-04-10] MEDS: ONDANSETRON HCL 4 MG/2 ML VIAL IV ONE (16:18)
[2024-04-10 16:31] LABS: Basophils # (auto) 0.1 10 ^3/uL (0-0.2); Basophils % (auto) 0.7 % (0.0-2.0); Eosinophils # (auto) 0.1 10 ^3/uL (0-0.8); Eosinophils % (auto) 1.1 % (0.0-7.0); Hematocrit 32.1 % (41.0-53.0); Lymphocytes # (auto) 1.3 10 ^3/uL (0.4-5.4); Lymphocytes % (auto) 15.1 % (10.0-50.0); Mean Corpuscular Hemoglobin 28.8 pg (28.0-32.0); Mean Corpuscular Hgb Conc. 34.3 g/dL (32.0-36.0); Monocytes # (auto) 0.5 10 ^3/uL (0-1.3); Monocytes % (auto) 5.6 % (0.0-12.0); Neutrophils # (auto) 6.6 10 ^3/uL (1.6-8.6); Neutrophils % (auto) 77.5 % (37.0-80.0); Platelet Count (auto) 286 10^3/uL (140-450); Red Blood Cells 3.82 10^6/uL (4.5-5.90); Red Cell Distribution Width 13.4 % (11.8-14.3); White Blood Cell 8.5 10^3/uL (4.4-10.8)
--- NOTE | 2024-04-10 16:40 | DVH ---
EXAMINATION: AP portable chest radiograph CLINICAL HISTORY: abdominal pain COMPARISON: None TECHNIQUE: Single PA upright view of the chest FINDINGS: Negative AP chest. No dominant consolidations. The costophrenic angles are clear. No sizable pleural effusions or pneumo thorax identified. The cardiomediastinal silhouette appears within normal limits given technique. IMPRESSION: 1. Negative AP chest.
[2024-04-10 16:46] LABS: Alanine Aminotransferase 18 U/L (7-40); Albumin 3.6 g/dL (3.2-4.8); Alkaline Phosphatase 92 U/L (46-116); Anion Gap 8 (5-15); Aspartate Aminotransferase 13 U/L (13-40); BUN/Creatinine Ratio 18.4 (10.0-20.0); Calcium 9.5 mg/dL (8.7-10.4); Carbon Dioxide 26 mmol/L (20-31); Chloride 103 mmol/L (98-107); Potassium 4.5 mmol/L (3.5-5.1); Sodium 137 mmol/L (136-145)
[2024-04-10 16:47] LABS: Bilirubin, Total 0.7 mg/dL (0.2-1.0); Blood Urea Nitrogen 29 mg/dL (9-23); Glucose 397 mg/dL (74-106); Total Protein 6.2 g/dL (5.7-8.2)
[2024-04-10] MEDS: IOHEXOL 300 MG/ML 100ML BOTTLE IJ ONE (17:17)
--- NOTE | 2024-04-10 17:57 | DVH ---
Exam: CT CT AB PEL WITH IV CON ONLY History: abdominal pain, brbpr Comparison Study: None available at time of dictation. TECHNIQUE: Multidetector CT of the abdomen and pelvis with contrast Axial, coronal and sagittal multi planar reformats were obtained from the axial data set by the technologist. Radiation Dose Information: CT Dose: CTDI volume is 9.83 mGy. Dose-length product is 525.91 mGy*cm FINDINGS: Bibasilar atelectasis. Partially visualized heart is unremarkable. Liver, spleen, gallbladder, pancreas and adrenal glands unremarkable. 1.5 cm right renal cyst. Mild bilateral hydronephrosis with no obstructing calculus noted. Otherwise, kidneys, ureters and urinary bladder are unremarkable. Mild distention of the urinary bladder. Prost ate measures 3.6 x 5 x 4.1 cm. Stomach is mildly distended. Otherwise unremarkable. Mild wall thickening of proximal small bowel lo ops which may be due to inadequate distention. The remainder of the small bowel loops unremarkable. Appendix is unremarkable. Large amount of fecal material within the colon. Segmental decompression of the rectum with wall thickening. No evidence of intraperitoneal free air or free fluid. No evidence of aortic aneurysm or dissection. No significant lymphadenopathy. Small fat containing bilateral inguinal hernias. Right paramedian large fat containing supraumbilical hernia. Small fat containing umbilical hernia. Minimal soft tissue edema. No destructive osseous le sions are noted. Sclerotic focus over the right pelvic bone and right proximal femur which may repres ent bone islands blastic lesions not excluded. IMPRESSION: Mild wall thickening of proximal small bowel loops which may be due to inadequate distention with ent eritis not excluded. Constipation. Segmental decompression of the rectum wall thickening . Neoplasm can not be excluded. Bronchoscopy i s recommended for further evaluation. Mild bilateral hydronephrosis with a obstructing calculus noted. Small right renal cyst. Enlarged prostate. Recommend correlation with PSA. Mild bilateral hydro nephrosis might be from obst ructive uropathy with mild distention of the urinary bladder. Recommend clinical correlation. Ventral abdominal fat containing hernias as detailed above. Additional findings as above.
[2024-04-10] MEDS ORDERED: hydrALAZINE HCL 20 MG/ML VL IV PRN (21:30)
[2024-04-10] MEDS ORDERED: ACETAMINOPHEN 325 MG TAB PO PRN (21:30)
[2024-04-10] MEDS ORDERED: DEXTROSE (50%) 50ML SYRG IV PRN (21:30)
[2024-04-10] MEDS ORDERED: DOCUSATE SOD 100 MG CAP PO PRN (21:30)
[2024-04-10] MEDS ORDERED: HYDROcodone-ACET 5/325MG TAB PO PRN (21:30)
--- NOTE | 2024-04-10 22:42 | DVHHP2 ---
History of Present Illness Reason for Visit: Generalized abdominal pain History of Present Illness The patient is a 53-year-old male with past medical history of hypertension, hyperlipidemia, and diabetes mellitus who presented to [facility] ED for evaluation of GI bleed for a proximally 3 weeks duration. Patient reports his bowel movement at that brown with blood streak, excessive fluctuance, rectal pain, rating 5/10 numeric scale, getting worse that prompted this visit. Patient was seen and evaluated in the ED, laboratory data shows WBC 8.5, hemoglobin 11.0, hematocrit 32.1, platelets 256, sodium 137, potassium 4.5, BUN 29, creatinine 1.58, glucose 397, blood pressure 153/91, heart rate 104, temperature 97.7 F, O2 saturation 98% on room air. Abdomen/pelvis CT revealing mild wall thickening proximal small bowel loops which may be due to inadequate distention with enteritis not excluded, constipation, segmental the compression of the rectum wall thickening; neoplasm can not be excluded, bronchoscopy is recommended for further evaluation; mild bilateral hydronephrosis with obstructing calculus noted; small fat containing bilateral inguinal hernia, right paramedian large fat containing supraumbilical hernia. Please see medication orders section in the computer. On my assessment, patient denies chest pain, no headache, no dizziness, no diaphoresis, no shortness of breath, no nausea, no vomiting, no fever, no chills. Patient was admitted for further evaluation and medical management. Past Medical History DM, High Lipids, HTN Past Surgical History Denies all surgeries Family History Reviewed, noncontributory to the management of this case. Past Social History The patient lives at home, denies smoking, alcohol or illicit drugs abuse. Review of Systems Constitutional: No: Fever, Chills, Sweats, Weakness, Malaise, Other Eyes: No: Pain, Vision change, Conjunctivae inflammation, Eyelid inflammation, Other, Redness ENT: No: Ear pain, Ear discharge, Nose pain, Nose discharge, Nose congestion, Mouth pain, Mouth swelling, Throat pain, Throat swelling, Other Respiratory: No: Cough, Dry, Shortness of breath, SOB with excertion, Wheezing, Hemoptysis, Pleuritic Pain, Sputum, Wheezing, Other Cardiovascular: No: Chest Pain, Palpitations, Orthopnea, Paroxysmal Noc. Dyspnea, Edema, Lt Headedness, Other Gastrointestinal: Abdominal Pain, Constipation, Other (Blood streak bowel, rectal pain, fluctuance.); No: Nausea, Vomiting, Diarrhea, Melena, Hematochezia Genitourinary: No Dysuria, No Frequency, No Incontinence, No Hematuria, No Retention, No Other Musculoskeletal: No: other, neck pain, shoulder pain, arm pain, back pain, hand pain, leg pain, foot pain Skin: No: Rash, Lesions, Jaundice, Bruising, Other Neurological: No: Weakness, Numbness, Incoordination, Change in speech, Confusion, Seizures, Other Allergies: Coded Allergies: NO KNOWN ALLERGIES (Unverified , 09/22/23) Medications Current Medications Medications Dose Ordered Sig/Kelly Route Start Time Stop Time Status Last Admin Dose Admin Pantoprazole Sodium 40 mg BID IV 04/10/24 22:00 Metoprolol Tartrate 50 mg BID PO 04/10/24 22:00 Hydralazine HCl 10 mg Q6HP PRN IV 04/10/24 21:30 Amlodipine Besylate 5 mg DAILY PO 04/11/24 10:00 Diagnostic Test (Pha) 1 strip IQ4HR 04/11/24 00:00 Insulin Human Regular IQ4HR SC 04/11/24 00:00 Dextrose 50 ml UD PRN IV 04/10/24 21:30 Sodium Chloride 1,000 ml @ 60 mls/hr [id number] IV 04/10/24 21:30 Acetaminophen/ Hydrocodone Bitart 1 tab Q4HP PRN PO 04/10/24 21:30 Ondansetron HCl 4 mg Q4HP PRN IV 04/10/24 21:30 Docusate Sodium 100 mg BIDPRN PRN PO 04/10/24 21:30 Acetaminophen 650 mg Q6HP PRN PO 04/10/24 21:30 Atorvastatin Calcium 10 mg HS PO 04/10/24 22:00 Exam Vital Signs Vital Signs Date Time Temp Pulse Resp B/P (MAP) Pulse Ox O2 Delivery O2 Flow Rate FiO2 04/10/24 16:14 97.7 105 17 153/91 (111) 98 97.7 04/10/24 16:14 Room Air General Appearance: Alert, Oriented X3, Cooperative, No acute distress HEENT: Atraumatic, PERRLA, EOMI, Mucous membr. moist/pink Respiratory: Clear to auscultation, Normal air movement Cardiovascular: Regular rate, Normal S1, Normal S2, No murmurs Abdominal: Normal bowel sounds, Soft, No hepatospenomegaly, No masses, Other (Reports tenderness) Extremities: No clubbing, No cyanosis, No edema, Normal pulses, No tenderness/swelling Skin: No rashes, No breakdown, No significant lesion Neuro: Normal gait, Normal speech, Strength at 5/5 X4 ext, Normal tone, Sensation intact, Cranial nerves 3-12 NL, Reflexes 2+ Psych/Mental Status: Mental status NL, Mood NL Labs/Xrays Labs Test 04/10/24 16:11 Range/Units White Blood Count 8.5 4.4-10.8 10^3/uL Red Blood Count 3.82 L 4.5-5.90 10^6/uL Hemoglobin 11.0 L 13.5-17.5 g/dL Hematocrit 32.1 L 41.0-53.0 % Mean Corpuscular Volume 84.0 80.0-100.0 fL Mean Corpuscular Hemoglobin 28.8 28.0-32.0 pg Mean Corpuscular Hemoglobin Concent 34.3 32.0-36.0 g/dL Red Cell Distribution Width 13.4 11.8-14.3 % Platelet Count 286 140-450 10^3/uL Mean Platelet Volume 9.0 6.9-10.8 fL Neutrophils (%) (Auto) 77.5 37.0-80.0 % Lymphocytes (%) (Auto) 15.1 10.0-50.0 % Monocytes (%) (Auto) 5.6 0.0-12.0 % Eosinophils (%) (Auto) 1.1 0.0-7.0 % Basophils (%) (Auto) 0.7 0.0-2.0 % Neutrophils # (Auto) 6.6 1.6-8.6 10 ^3/uL Lymphocytes # (Auto) 1.3 0.4-5.4 10 ^3/uL Monocytes # (Auto) 0.5 0-1.3 10 ^3/uL Eosinophils # (Auto) 0.1 0-0.8 10 ^3/uL Basophils # (Auto) 0.1 0-0.2 10 ^3/uL Nucleated Red Blood Cells 0.0 % Sodium Level 137 136-145 mmol/L Potassium Level 4.5 3.5-5.1 mmol/L Chloride Level 103 98-107 mmol/L Carbon Dioxide Level 26 20-31 mmol/L Anion Gap 8 5-15 Blood Urea Nitrogen 29 H 9-23 mg/dL Creatinine 1.58 H 0.700-1.30 mg/dL Glomerular Filtration Rate Calc 53 >90 mL/min BUN/Creatinine Ratio 18.4 10.0-20.0 Serum Glucose 397 H 74-106 mg/dL Lactic Acid Level 1.5 0.4-2.0 mmol/L Calcium Level 9.5 8.7-10.4 mg/dL Total Bilirubin 0.7 0.2-1.0 mg/dL Aspartate Amino Transferase (AST) 13 13-40 U/L Alanine Aminotransferase (ALT) 18 7-40 U/L Alkaline Phosphatase 92 46-116 U/L Total Protein 6.2 5.7-8.2 g/dL Albumin 3.6 3.2-4.8 g/dL PATIENT: XENIA WALLIS YASIRHELENAOACCT: [id number] UNIT: [id number] : 1970 LOC: ER ROOM / BED: / AGE / SEX: 53 / M ADM STATUS: REG ER SERVICE [id number] ORDERING PHYSICIAN: SARA DICKEY MD PROCEDURE(s): ABPLIV - CT AB PEL WITH IV CON ONLY REASON: abdominal pain, brbpr ORDER NUMBER(s): [id number], ACCESSION NUMBER(s): [id number] Exam: CT CT AB PEL WITH IV CON ONLY History: abdominal pain, brbpr Comparison Study: None available at time of dictation. TECHNIQUE: Multidetector CT of the abdomen and pelvis with contrast Axial, coronal and sagittal multiplanar reformats were obtained from the axial data set by the technologist. Radiation Dose Information: CT Dose: CTDI volume is 9.83 mGy. Dose-length product is 525.91 mGy*cm FINDINGS: Bibasilar atelectasis. Partially visualized heart is unremarkable. Liver, spleen, gallbladder, pancreas and adrenal glands unremarkable. 1.5 cm right renal cyst. Mild bilateral hydronephrosis with no obstructing calculus noted. Otherwise, kidneys, ureters and urinary bladder are unremarkable. Mild distention of the urinary bladder. Prostate measures 3.6 x 5 x 4.1 cm. Stomach is mildly distended. Otherwise unremarkable. Mild wall thickening of p roximal small bowel loops which may be due to inadequate distention. The remainder of the small bowel loops unremarkable. Appendix is unremarkable. Large amount of fecal material within the colon. Segmental decompression of the rectum with wall thickening. No evidence of intraperitoneal free air or free fluid. No evidence of aortic aneurysm or dissection. No significant lymphadenopathy. Small fat containing bilateral inguinal hernias. Right paramedian large fat containing supraumbilical hernia. Small fat containing umbilical hernia. Minimal soft tissue edema. No destructive osseous lesions are noted. Sclerotic focus over the right pelvic bone and right proximal femur which may represent bone islands blastic lesions not excluded. IMPRESSION: Mild wall thickening of proximal small bowel loops which may be due to inadequate distention with enteritis not excluded. Constipation. Segmental decompression of the rectum wall thickening. Neoplasm can not be excluded. Bronchoscopy is recommended for further evaluation. Mild bilateral hydronephrosis with a obstructing calculus noted. Small right renal cyst. Enlarged prostate. Recommend correlation with PSA. Mild bilateral hydro nephrosis might be from obstructive uropathy with mild distention of the urinary bladder. Recommend clinical correlation. Ventral abdominal fat containing hernias as detailed above. ORDERING PHYSICIAN: SARA DICKEY MD PROCEDURE(s): CXRP - CHEST PORTABLE REASON: abdominal pain ORDER NUMBER(s): [id number], ACCESSION NUMBER(s): [id number] EXAMINATION: AP portable chest radiograph CLINICAL HISTORY: abdominal pain COMPARISON: None TECHNIQUE: Single PA upright view of the chest FINDINGS: Negative AP chest. No dominant consolidations. The costophrenic angles are clear. No sizable pleural effusions or pneumothorax identified. The cardiomediastinal silhouette appears within normal limits given technique. IMPRESSION: 1. Negative AP chest. Assessment/Plan Assessment/Plan Uncontrolled diabetes mellitus GI bleed Acute renal injury Bright red blood per rectum Generalized abdominal pain Type 2 diabetes mellitus with hyperglycemia Plan 1. Admit to telemetry unit 2. Breathing treatment 3. Pain control management 4. Management of fluids and electrolytes 5. Consultation for GI/urology 6. Diagnostic tests abdomen/pelvis CT 7. DVT prophylaxis on SCDs 8. Repeat labs CBC, CMP in a.m. 9. Continue with current medical management 10. Treatment plan discussed with patient and RN. Patient verbalized understanding. Plan discussed with: Patient, Other (RN) My Orders Orders - CARLEE COLE DNP Procedure Category Date Status Time Pantoprazole PHA 04/10/24 In Process (Protonix) 22:00 Consistent DIET 04/11/24 Transmitted Carb(Ccho)Diabetes Breakfast Metoprolol Tartrate PHA 04/10/24 In Process Tablet (Lopressor Ta 22:00 Hydralazine Injection PHA 04/10/24 In Process (Apresoline Inject 21:30 * Gi Dvh Incising Machine Operator CONS 04/10/24 Transmitted 21:28 * Surgical Consult CONS 04/10/24 Transmitted * Urology Consult CONS 04/10/24 Transmitted 21:28 Amlodipine Tablet PHA 04/11/24 In Process (Norvasc Tablet) 10:00 Glucose Blood PHA 04/11/24 In Process (Accu-Chek Comfort 00:00 Insulin R (Human) PHA 04/11/24 In Process (Insulin R) 00:00 Dextrose 50% Syringe PHA 04/10/24 In Process 21:30 Allergies LEATHA 04/10/24 In Process 21:28 Code Status CODE 04/10/24 Transmitted 21:28 Sodium Chloride 0.9% PHA 04/10/24 In Process 21:30 Oxygen Per Hour RT 04/10/24 Transmitted 21:28 Hydrocodone-Acet PHA 04/10/24 In Process 5/325mg Tab (Robinson 21:30 Ondansetron Hcl PHA 04/10/24 In Process (Zofran) 21:30 Docusate Sodium PHA 04/10/24 In Process Capsule (Colace 21:30 Complete Blood Count LAB 04/11/24 Verified 04:00 Comprehensive LAB 04/11/24 Verified Metabolic Panel 04:00 Condition: Serious LEATHA 04/10/24 In Process 21:28 Acetaminophen Tablet PHA 04/10/24 In Process (Tylenol Tablet) 21:30 Bedrest With Bathroom LEATHA 04/10/24 In Process Privileg 21:28 Sequential LEATHA 04/10/24 In Process Compression Device Atorvastatin (Lipitor) PHA 04/10/24 In Process 22:00 Problem List: (1) Uncontrolled diabetes mellitus (2) GI bleed (3) Generalized abdominal pain (4) Acute renal injury (5) Bright red blood per rectum (6) Type 2 diabetes mellitus with hyperglycemia Date of Service: Apr 10, 2024 Billing Provider: CARLEE COLE DNP Common Visit Codes: [id number] INP/OBS CARE (HIGH) CARLEE COLE DNP Apr 10, 2024 22:42
[2024-04-10] MEDS ORDERED: NITROGLYCERIN 0.4 MG SL TAB SL PRN (22:45)
[2024-04-10] MEDS ORDERED: MORPHINE SULFATE INJ 2 MG/ml SYRG IV PRN (22:45)
[2024-04-11] MEDS: InsuLIN REG 1unit/0.01ml Soln (100units/ml) SC SCH (00:17)
[2024-04-11] MEDS: ACCU-CHEK COMFORT CURVE STRIP VI SCH (00:22)
[2024-04-11] MEDS: METOPROLOL TARTRATE 50 MG TAB PO SCH (00:22)
[2024-04-11] MEDS: ATORVASTATIN 20 MG TAB PO SCH (00:22)
[2024-04-11] MEDS: PANTOPRAZOLE 40 MG/10 ML VIAL INJ IV SCH (00:29)
[2024-04-11] MEDS: SODIUM CHLORIDE 0.9% 1,000 ML IV SCH (02:29)
[2024-04-11] MEDS: ONDANSETRON HCL 4 MG/2 ML VIAL IV PRN (02:45)
[2024-04-11 07:52] LABS: Basophils # (auto) 0 10 ^3/uL (0-0.2); Basophils % (auto) 0.5 % (0.0-2.0); Eosinophils # (auto) 0.1 10 ^3/uL (0-0.8); Eosinophils % (auto) 0.8 % (0.0-7.0); Hematocrit 28.3 % (41.0-53.0); Hemoglobin 9.7 g/dL (13.5-17.5); Lymphocytes # (auto) 1.3 10 ^3/uL (0.4-5.4); Lymphocytes % (auto) 16.1 % (10.0-50.0); Mean Corpuscular Hemoglobin 28.9 pg (28.0-32.0); Mean Corpuscular Hgb Conc. 34.3 g/dL (32.0-36.0); Mean Corpuscular Volume 84.2 fL (80.0-100.0); Monocytes # (auto) 0.6 10 ^3/uL (0-1.3); Monocytes % (auto) 7.8 % (0.0-12.0); Neutrophils % (auto) 74.8 % (37.0-80.0); Platelet Count (auto) 257 10^3/uL (140-450); Red Blood Cells 3.37 10^6/uL (4.5-5.90); Red Cell Distribution Width 13.6 % (11.8-14.3)
[2024-04-11 07:58] LABS: Alanine Aminotransferase 15 U/L (7-40); Albumin 3.4 g/dL (3.2-4.8); Alkaline Phosphatase 76 U/L (46-116); Anion Gap 7 (5-15); BUN/Creatinine Ratio 23.4 (10.0-20.0); Bilirubin, Total 0.6 mg/dL (0.2-1.0); Carbon Dioxide 25 mmol/L (20-31); Potassium 4.2 mmol/L (3.5-5.1); Sodium 141 mmol/L (136-145); Total Protein 5.8 g/dL (5.7-8.2)
[2024-04-11 08:00] LABS: Aspartate Aminotransferase 10 U/L (13-40); Blood Urea Nitrogen 32 mg/dL (9-23); Chloride 109 mmol/L (98-107); Glucose 115 mg/dL (74-106)
[2024-04-11 10:55] VITALS: BP 167/79; PULSE 85; RESP 17; TEMP 98.7; O2SAT 99
[2024-04-11 11:15] VITALS: BP 167/82; PULSE 83; RESP 17; TEMP 98.7; O2SAT 99
[2024-04-11] MEDS: amLODIPine BESYLATE 5 MG TAB PO SCH (11:17)
[2024-04-11 13:00] VITALS: BP 172/83; PULSE 83; RESP 17; TEMP 98.3; O2SAT 98
--- NOTE | 2024-04-11 15:46 | DVHPN2 ---
Subjective Feels better. Had one vomiting episode today this morning Reviewed: Care Plan, H&P, Labs, Medications, Previous Orders, Radiology Changes from previous H/P or p: No Changes Gastrointestinal: Other (Blood streak bowel, rectal pain, fluctuance.) Objective Vitals Vital Signs Date Time Temp Pulse Resp B/P (MAP) Pulse Ox O2 Delivery O2 Flow Rate FiO2 04/11/24 13:00 98.3 83 17 172/83 (112) 98 98.3 04/11/24 00:04 Room Air Intake/Output Intake and Output 04/11/24 07:00 Intake Total 1000 ml Balance 1000 ml Intake IV Total 1000 ml General Appearance: Alert, Oriented X3, Cooperative, No acute distress HEENT: Atraumatic Lungs: Clear to auscultation Cardiovascular: Regular rate Abdomen: Normal bowel sounds, Soft, Other (Some tenderness in the lower abdominal area) Extremities: No edema Medications Current Medications Medications Dose Ordered Sig/Kelly Route Start Time Stop Time Status Last Admin Dose Admin Pantoprazole Sodium 40 mg BID IV 04/10/24 22:00 04/11/24 11:18 40 MG Metoprolol Tartrate 50 mg BID PO 04/10/24 22:00 04/11/24 11:18 50 MG Hydralazine HCl 10 mg Q6HP PRN IV 04/10/24 21:30 Amlodipine Besylate 5 mg DAILY PO 04/11/24 10:00 04/11/24 11:17 5 MG Diagnostic Test (Pha) 1 strip IQ4HR 04/11/24 00:00 04/11/24 12:00 1 STRIP Insulin Human Regular IQ4HR SC 04/11/24 00:00 04/11/24 12:39 6 UNITS Dextrose 50 ml UD PRN IV 04/10/24 21:30 Sodium Chloride 1,000 ml @ 60 mls/hr [id number] IV 04/10/24 21:30 Acetaminophen/ Hydrocodone Bitart 1 tab Q4HP PRN PO 04/10/24 21:30 Ondansetron HCl 4 mg Q4HP PRN IV 04/10/24 21:30 04/11/24 02:45 4 MG Docusate Sodium 100 mg BIDPRN PRN PO 04/10/24 21:30 Acetaminophen 650 mg Q6HP PRN PO 04/10/24 21:30 Atorvastatin Calcium 10 mg HS PO 04/10/24 22:00 04/11/24 00:22 10 MG Nitroglycerin 0.4 mg Q5MINP PRN SL 04/10/24 22:45 Morphine Sulfate 2 mg Q30M PRN IV 04/10/24 22:45 Laboratory Results Laboratory Tests 04/11/24 07:29 Chemistry Test 04/10/24 16:11 04/11/24 07:29 Albumin 3.6 g/dL (3.2-4.8) 3.4 g/dL (3.2-4.8) Calcium Level 9.5 mg/dL (8.7-10.4) 9.0 mg/dL (8.7-10.4) Total Protein 6.2 g/dL (5.7-8.2) 5.8 g/dL (5.7-8.2) LFT Test 04/10/24 16:11 04/11/24 07:29 Alanine Aminotransferase (ALT) 18 U/L (7-40) 15 U/L (7-40) Alkaline Phosphatase 92 U/L (46-116) 76 U/L (46-116) Aspartate Amino Transferase (AST) 13 U/L (13-40) 10 U/L (13-40) L Total Bilirubin 0.7 mg/dL (0.2-1.0) 0.6 mg/dL (0.2-1.0) Assessment/Plan Assessment/Plan Abdominal pain Rectal bleed /unclear etiology Hyperglycemia Bilateral nephrolithiasis Mild hydronephrosis BPH Ventral hernia Anemia of chronic disease Plan: GI consultation. A1c. PSA. ESR. CRP. H&H. Further plan per orders Plan discussed with: Patient Date of Service: Apr 11, 2024 Billing Provider: ALMA ROSA GUZMAN MD Common Visit Codes: [id number] INP/OBS CARE(HIGH) ALMA ROSA GUZMAN MD Apr 11, 2024 15:46
[2024-04-11 17:00] VITALS: BP 140/64; PULSE 77; RESP 18; TEMP 98.3; O2SAT 98
[2024-04-11 17:42] LABS: Hematocrit 28.2 % (41.0-53.0); Hemoglobin 9.5 g/dL (13.5-17.5)
[2024-04-11 18:12] LABS: Erythrocyte Sedimentation Rate 34 mm/hr (0-20)
[2024-04-11 20:00] VITALS: PULSE 80; PULSE 82; RESP 18; O2SAT 98
[2024-04-11 21:00] VITALS: BP 140/67; PULSE 82; RESP 18; TEMP 98.2; O2SAT 98
[2024-04-11 21:28] LABS: Hemoglobin 9.1 g/dL (13.5-17.5)
[2024-04-12] VITALS (8 sets, daily range): BP systolic 134–170; BP diastolic 65–81; PULSE 77–100; RESP 18–20; TEMP 98.1–99; O2SAT 97–99
[2024-04-12 06:39] LABS: Basophils # (auto) 0.1 10 ^3/uL (0-0.2); Eosinophils # (auto) 0.2 10 ^3/uL (0-0.8); Eosinophils % (auto) 2.3 % (0.0-7.0); Hematocrit 26.5 % (41.0-53.0); Hemoglobin 9.3 g/dL (13.5-17.5); Lymphocytes # (auto) 1.7 10 ^3/uL (0.4-5.4); Lymphocytes % (auto) 23.4 % (10.0-50.0); Mean Corpuscular Hemoglobin 29.5 pg (28.0-32.0); Mean Corpuscular Hgb Conc. 35.1 g/dL (32.0-36.0); Monocytes # (auto) 0.6 10 ^3/uL (0-1.3); Monocytes % (auto) 8.7 % (0.0-12.0); Neutrophils # (auto) 4.7 10 ^3/uL (1.6-8.6); Neutrophils % (auto) 64.6 % (37.0-80.0); Platelet Count (auto) 222 10^3/uL (140-450); Red Blood Cells 3.16 10^6/uL (4.5-5.90); Red Cell Distribution Width 13.8 % (11.8-14.3); White Blood Cell 7.2 10^3/uL (4.4-10.8)
[2024-04-12 06:51] LABS: INR 1.02 (0.9-1.15); Prothrombin Time 10.8 sec (9.3-11.8)
[2024-04-12 07:02] LABS: Alanine Aminotransferase 12 U/L (7-40); Alkaline Phosphatase 77 U/L (46-116); Anion Gap 8 (5-15); Calcium 8.9 mg/dL (8.7-10.4); Carbon Dioxide 25 mmol/L (20-31); Potassium 4.5 mmol/L (3.5-5.1); Sodium 142 mmol/L (136-145)
[2024-04-12 07:03] LABS: Aspartate Aminotransferase 10 U/L (13-40); Bilirubin, Total 0.9 mg/dL (0.2-1.0); Blood Urea Nitrogen 30 mg/dL (9-23); Chloride 109 mmol/L (98-107); Glucose 132 mg/dL (74-106); Total Protein 5.1 g/dL (5.7-8.2)
[2024-04-12 10:11] LABS: Hepatitis B Surface Antigen Negative (Negative)
[2024-04-12 10:33] LABS: Hepatitis C Antibody Negative (Negative)
--- NOTE | 2024-04-12 10:49 | DVHPN2 ---
Progress Note Date Seen: Apr 12, 2024 Medical Necessity Reason Pt with a Central, PICC or Fol: No Objective vital signs Vital Sign Date Time Temp Pulse Resp B/P (MAP) Pulse Ox O2 Delivery O2 Flow Rate FiO2 04/12/24 09:49 165/77 04/12/24 09:48 87 04/12/24 09:00 98.1 20 97 98.1 04/11/24 20:00 Room Air* 0 21 Total Intake and Output 04/11/24 04/11/24 04/12/24 15:00 23:00 07:00 Intake Total 0 ml 1790 ml Balance 0 ml 1790 ml medications Current Medications Medications Dose Ordered Sig/Kelly Route Start Time Stop Time Status Last Admin Dose Admin Pantoprazole Sodium 40 mg BID IV 04/10/24 22:00 04/12/24 09:48 40 MG Metoprolol Tartrate 50 mg BID PO 04/10/24 22:00 04/12/24 09:48 50 MG Amlodipine Besylate 5 mg DAILY PO 04/11/24 10:00 04/12/24 09:49 5 MG Diagnostic Test (Pha) 1 strip IQ4HR 04/11/24 00:00 04/12/24 09:48 1 STRIP Insulin Human Regular IQ4HR SC 04/11/24 00:00 04/12/24 10:06 9 UNITS Dextrose 50 ml UD PRN IV 04/10/24 21:30 Sodium Chloride 1,000 ml @ 60 mls/hr [id number] IV 04/10/24 21:30 04/12/24 04:10 60 MLS/HR Acetaminophen/ Hydrocodone Bitart 1 tab Q4HP PRN PO 04/10/24 21:30 Ondansetron HCl 4 mg Q4HP PRN IV 04/10/24 21:30 04/11/24 02:45 4 MG Docusate Sodium 100 mg BIDPRN PRN PO 04/10/24 21:30 Acetaminophen 650 mg Q6HP PRN PO 04/10/24 21:30 Atorvastatin Calcium 10 mg HS PO 04/10/24 22:00 04/11/24 20:50 10 MG Nitroglycerin 0.4 mg Q5MINP PRN SL 04/10/24 22:45 Morphine Sulfate 2 mg Q30M PRN IV 04/10/24 22:45 Hydralazine HCl 10 mg Q2HP PRN IV 04/11/24 16:00 laboratory and microbiology Laboratory Tests 04/12/24 05:17 Test 04/12/24 05:17 Range/Units Serum Glucose 132 H 74-106 mg/dL Problem List/Assessment/Plan Problem List/Assessment/Plan 04/12/24 patient c/o rectal bleeding and "prostate problem", will follow, there is no emergency indication for surgical intervention Plan discussed with: Patient COSTA VILLANUEVA MD Apr 12, 2024 10:49
[2024-04-12] MEDS: ACCU-CHEK COMFORT CURVE STRIP VI SCH (11:30)
[2024-04-12] MEDS: InsuLIN REG 1unit/0.01ml Soln (100units/ml) SC SCH (11:30)
--- NOTE | 2024-04-12 15:02 | DVHPNRES ---
Progress Note Date Seen: Apr 12, 2024 Resident Creating Document: TANYA CORMIERCHANCE RESIDENT Medical Necessity Reason Pt with a Central, PICC or Fol: No Subjective Review of Systems Patient is a 53-year-old male with a past medical history of type 2 diabetes mellitus, hypertension, hyperlipidemia, ventral hernia ED with a chief complaint of blood in stool for the past 3 weeks. Patient reported that he was apparently well about 3 weeks ago when he started having loose stools which were mostly dark in color sometimes black and intermittently had associated red blood in stool. Patient reports that he never had blood in his stools before. No history of hemorrhoids, no associated fever, night sweats, weight loss, constipation. Reports mild lower abdominal pain since the past 4 days. Patient also reported that since the time is GI symptoms started he is also having symptoms of urinary hesitancy, weak stream, urgency. No dysuria, no blood in urine. Patient reports feeling fatigued and gets tired easily since the time he has been having the symptoms. On admissions labs show hemoglobin 11 mg/dL, BMP shows increased BUN 29 creatinine 1.58 GFR 53, elevated serum glucose, HbA1c 9.[address] abdomen pelvis with IV contrast showed right renal cyst, mild bilateral hydronephrosis with mild distention of urinary bladder and enlarged prostate. Stomach is mildly distended, mild wall thickening of paroxysmal small bowel loops which may be due to inadequate distention, segmental decompression of rectum with wall thickening. Past medical history: Type 2 diabetes mellitus, hyperlipidemia, hypertension, umbilical hernia Past surgical history: None Social history: Patient denies smoking, alcohol, drug use Home medications: Metformin 1000 mg q.d., glipizide 1 tablet daily, enalapril 2.5 mg daily PCP: Patient does not have a PCP or insurance Review of systems Patient is seen and examined at the bedside. A/O x4. Patient denies abdominal pain, fever, diarrhea, nausea, vomiting. Patient reported having 1 bowel movement in the morning which was reportedly dark stools. Vitals stable, blood pressure WNL, heart rate and rhythm regular. Objective vital signs Vital Sign Date Time Temp Pulse Resp B/P (MAP) Pulse Ox O2 Delivery O2 Flow Rate FiO2 04/12/24 13:00 98.9 77 20 140/68 (92) 99 98.9 04/12/24 08:00 Room Air* 0 21 Total Intake and Output 04/11/24 04/11/24 04/12/24 15:00 23:00 07:00 Intake Total 0 ml 1790 ml Balance 0 ml 1790 ml medications Current Medications Medications Dose Ordered Sig/Kelly Route Start Time Stop Time Status Last Admin Dose Admin Pantoprazole Sodium 40 mg BID IV 04/10/24 22:00 04/12/24 09:48 40 MG Metoprolol Tartrate 50 mg BID PO 04/10/24 22:00 04/12/24 09:48 50 MG Amlodipine Besylate 5 mg DAILY PO 04/11/24 10:00 04/12/24 09:49 5 MG Dextrose 50 ml UD PRN IV 04/10/24 21:30 Sodium Chloride 1,000 ml @ 60 mls/hr [id number] IV 04/10/24 21:30 Hold 04/12/24 04:10 60 MLS/HR Acetaminophen/ Hydrocodone Bitart 1 tab Q4HP PRN PO 04/10/24 21:30 Ondansetron HCl 4 mg Q4HP PRN IV 04/10/24 21:30 04/11/24 02:45 4 MG Docusate Sodium 100 mg BIDPRN PRN PO 04/10/24 21:30 Acetaminophen 650 mg Q6HP PRN PO 04/10/24 21:30 Atorvastatin Calcium 10 mg HS PO 04/10/24 22:00 04/11/24 20:50 10 MG Nitroglycerin 0.4 mg Q5MINP PRN SL 04/10/24 22:45 Morphine Sulfate 2 mg Q30M PRN IV 04/10/24 22:45 Hydralazine HCl 10 mg Q2HP PRN IV 04/11/24 16:00 Diagnostic Test (Pha) 1 strip ACHS 04/12/24 11:30 Insulin Human Regular HS SC 04/12/24 22:00 Insulin Human Regular AC SC 04/12/24 11:30 Tamsulosin HCl 0.4 mg QPM PO 04/12/24 18:00 Examination Physical Examination Gen - no pallor, no icterus, no cyanosis, no clubbing, no LAD, no edema . Skin - Patients skin is warm and dry. HEENT - normocephalic, atraumatic, slightly dry mucous membranes. Neck - full ROM, no LAD, no JVD. Pulmonary - B/L vesicular breath sounds. no crackles , no wheezing, no stridor. cardiovascular - normal S1,S2 heard. no murmurs heard. peripheral pulses normal radial 2+, pedal 2+. capillary refill normal <2 secs. GI - soft abdomen without tenderness to palpation . no hepatospleenomegaly. bowel sounds normoactive. ventral hernia felt above the umbilicus Neurological - Patient is A/O X 3 . Bilateral upper extremity strength 5/5, bilateral lower extremity strength 5/5, no facial droop, normal speech, no tremor, no sensory deficiets. Digital rectal examination: firm, non tender mass felt in the anterior wall of the rectum and anal canal. No external hemorrhoids seen. no internal hemorrhoids felt. laboratory and microbiology Laboratory Tests 04/12/24 05:17 Test 04/12/24 05:17 Range/Units Serum Glucose 132 H 74-106 mg/dL Problem List/Assessment/Plan Problem List/Assessment/Plan Assessment and Plan # Acute on chronic GI bleed # Acute gastroenteritis - CT abdomen pelvis with IV contrast showed Stomach is mildly distended, mild wall thickening of paroxysmal small bowel loops , segmental decompression of rectum with wall thickening. - IV fluids given - on metronidazole 500mg IV q8hrs - GI consulted - Stool occult blood and stool WBC pending - On protonix 40mg IV # Enlarged prostate likely ?BPH ?prostate CA # B/L hydronephrosis - CT abdomen pelvis with IV contrast showed right renal cyst, mild bilateral hydronephrosis with mild distention of urinary bladder and enlarged prostate. - digital rectal exam: firm, non tender mass felt in the anterior part of rectum. - symptoms of hesistancy, frequency, weak stream - started on tamsulosin 0.4 mg - PSA pending - Urology consultation # THIERRY on CKD likely hemodynamically mediated vs obstructuve - Elevated serum creatinine and BUN - increased BUN/cr ratio - FeNa pending - 2L NS given - urinalysis pending # Uncontrolled T2DM with hyperglycemia - Hba1C- 9.2% - on moderate Insulin ACHS - insulin Lantus 16 U hs # Uncontrolled Hypertension - on metoprolol and amlodipine # Hernia - CT showed Small fat containing bilateral inguinal hernias. Right paramedian large fat containing supraumbilical hernia. Small fat containing umbilical hernia. - Surgery consulted, assessed the patient and recommended no immediate surgical intervention Goals of care discussed with the patient for over 35 mins. Full code Plan discussed with Plan discussed with: Patient, Other (RN ( Elisabet )) My Orders My Orders Orders - IZZY CORMIER RESIDENT Procedure Category Date Status Time Stool Occult Blood LAB 04/12/24 Logged 11:01 Stool Wbc LAB 04/12/24 Logged 11:01 Drug Screen LAB 04/12/24 Logged 11:01 Urinalysis LAB 04/12/24 Logged 11:01 Urine Sodium LAB 04/12/24 Logged 11:01 Urine LAB 04/12/24 Logged Protein/Creatinine Glucose Blood PHA 04/12/24 In Process (Accu-Chek Comfort 11:30 Insulin R (Human) PHA 04/12/24 In Process (Insulin R) 22:00 Insulin R (Human) PHA 04/12/24 In Process (Insulin R) 11:30 Orthostatic Vital ORDERS 04/12/24 Transmitted Signs 11:25 Tamsulosin PHA 04/12/24 In Process Hydrochloride (Flomax) 18:00 Bladder Scan ORDERS 04/12/24 Transmitted 11:36 Date of Service: Apr 12, 2024 Billing Provider: KAYLA WILLIAMSON MD Common Visit Codes: [id number] INP/OBS CARE(HIGH) IZZY CORMIER RESIDENT Apr 12, 2024 15:02 KAYLA WILLIAMSON MD Apr 19, 2024 00:18
--- NOTE | 2024-04-12 15:46 | DVHINCON2 ---
Date of service: Apr 12, 2024 Referring Physician hospitalist Reason for Consultation hydronephrosis History of Present Illness History Source: Patient HPI 53Y M with PMHx DM, HTN, and HLD presents to ED for chief complaint GI bleed x3wks. Pt states his bowel movements are dark brown and blood-streaked. Pt also reports excessive flatulence and rectal pain. Rectal pain is rated at a level of 5/10. Pt denies nausea, vomiting, fever, chest pain, and SOB. Pt has appt with a provider on 04/14/2024 and has never had a colonoscopy before. CT shows bilateral hydro and enlarged prostate. ALso noted to have large ventral fat containing hernia as well as small bilateral inguinal hernias. Home Meds Active Scripts Glipizide (Glipizide) 5 Mg Tab, 1 TAB PO DAILY for 30 Days, #30 TAB 3 Refills Prov:PARMINDER BURNETTE [facility] 10/30/23 Amoxicillin & Pot Clavulanate (AUGMENTIN TABLET) 875 Mg Tb, 875 MG PO BID for 7 Days, #14 TAB Prov:PARMINDER BURNETTE [facility] 10/30/23 Ferrous Sulfate (Ferrous Sulfate) 325 Mg Tab, 325 MG PO DAILY for 30 Days, #30 TAB 2 Refills Prov:PARMINDER BURNETTE [facility] 10/30/23 Enalapril Maleate (Enalapril Maleate) 2.5 Mg Tab, 5 MG PO Q12HR for 30 Days, #120 TAB 2 Refills Prov:PARMINDER BURNETTE [facility] 10/30/23 Metformin Hydrochloride (Metformin Hcl) 1,000 Mg Tab, 1000 MG PO BID for 30 Days, #60 TAB Prov:PARMINDER BURNETTE [facility] 10/30/23 Empagliflozin (Jardiance) 10 Mg Tab, 10 MG PO DAILY for 30 Days, #30 TAB Prov:QUINTIN MONACO [facility] 09/25/23 Ergocalciferol (VITAMIN D 54247 UNIT) 50,000 [place], [address] UNIT PO Q7D for 30 Days, #10 CAP Prov:QUINTIN MONACO [facility] 09/25/23 Atorvastatin Calcium (ATORVASTATIN CALCIUM) 20 Mg Tab, 20 MG PO HS for 30 Days, #30 TAB Prov:QUINTIN MONACO [facility] 09/25/23 Aspirin (Aspirin Low Dose) 81 Mg Tab, 81 MG PO DAILY for 30 Days, #30 TAB Prov:QUINTIN MONACO [facility] 09/25/23 Acetaminophen (Acetaminophen) 325 Mg Tab, 650 MG PO Q6HP PRN for 30 Days, #240 TAB Prov:QUINTIN MONACO [facility] 09/25/23 Past Medical History Patient Family History: Diabetes mellitus G8 MOTHER Review of Systems Gastrointestinal: Abdominal Pain, Melena, Abnormal Stool Genitourinary: Dysuria H&P Exam Vital Signs Vital Signs Date Time Temp Pulse Resp B/P (MAP) Pulse Ox O2 Delivery O2 Flow Rate FiO2 04/12/24 13:00 98.9 77 20 140/68 (92) 99 98.9 04/12/24 08:00 Room Air* 0 21 Labs/Xrays [place] [id number] Ph: [phone] DIAGNOSTIC IMAGING Diagnostic Imaging Report : [id number] Signed PATIENT: XENIA WALLIS YASIRHELENAOACCT: [id number] UNIT: [id number] : 1970 LOC: ER ROOM / BED: / AGE / SEX: 53 / M ADM STATUS: REG ER SERVICE 1553 ORDERING PHYSICIAN: SARA DICKEY MD PROCEDURE(s): ABPLIV - CT AB PEL WITH IV CON ONLY REASON: abdominal pain, brbpr ORDER NUMBER(s): [id number], ACCESSION NUMBER(s): [id number] Exam: CT CT AB PEL WITH IV CON ONLY History: abdominal pain, brbpr Comparison Study: None available at time of dictation. TECHNIQUE: Multidetector CT of the abdomen and pelvis with contrast Axial, coronal and sagittal multiplanar reformats were obtained from the axial data set by the technologist. Radiation Dose Information: CT Dose: CTDI volume is 9.83 mGy. Dose-length product is 525.91 mGy*cm FINDINGS: Bibasilar atelectasis. Partially visualized heart is unremarkable. Liver, spleen, gallbladder, pancreas and adrenal glands unremarkable. 1.5 cm right renal cyst. Mild bilateral hydronephrosis with no obstructing calculus noted. Otherwise, kidneys, ureters and urinary bladder are unremarkable. Mild distention of the urinary bladder. Prostate measures 3.6 x 5 x 4.1 cm. Stomach is mildly distended. Otherwise unremarkable. Mild wall thickening of proximal small bowel loops which may be due to inadequate distention. The remainder of the small bowel loops unremarkable. Appendix is unremarkable. Large amount of fecal material within the colon. Segmental decompression of the rectum with wall thickening. No evidence of intraperitoneal free air or free fluid. No evidence of aortic aneurysm or dissection. No significant lymphadenopathy. Small fat containing bilateral inguinal hernias. Right paramedian large fat containing supraumbilical hernia. Small fat containing umbilical hernia. Minimal soft tissue edema. No destructive osseous lesions are noted. Sclerotic focus over the right pelvic bone and right proximal femur which may represent bone islands blastic lesions not excluded. IMPRESSION: Mild wall thickening of proximal small bowel loops which may be due to inadequate distention with enteritis not excluded. Constipation. Segmental decompression of the rectum wall thickening . Neoplasm can not be excluded. Bronchoscopy is recommended for further evaluation. Mild bilateral hydronephrosis with no obstructing calculus noted. Small right renal cyst. Enlarged prostate. Recommend correlation with PSA. Mild bilateral hydro nephrosis might be from obstructive uropathy with mild distention of the urinary bladder. Recommend clinical correlation. Ventral abdominal fat containing hernias as detailed above. Additional findings as above. ATED BY: BRISEYDA KAMARA DO DICTATED DATE/TIME: 04/10/241754 SIGNED BY: BRISEYDA KAMARA DO SIGNED DATE/TIME: 04/10/241754 CC: Labs Test 04/12/24 09:59 04/12/24 05:17 04/11/24 21:20 04/11/24 17:26 Range/Units POC Glucose 281 H 70-106 mg/dl White Blood Count 7.2 4.4-10.8 10^3/uL Red Blood Count 3.16 L 4.5-5.90 10^6/uL Hemoglobin 9.3 L 13.5-17.5 g/dL Hematocrit 26.5 L 41.0-53.0 % Mean Corpuscular Volume 84.0 80.0-100.0 fL Mean Corpuscular Hemoglobin 29.5 28.0-32.0 pg Mean Corpuscular Hemoglobin Concent 35.1 32.0-36.0 g/dL Red Cell Distribution Width 13.8 11.8-14.3 % Platelet Count 222 140-450 10^3/uL Mean Platelet Volume 9.2 6.9-10.8 fL Neutrophils (%) (Auto) 64.6 37.0-80.0 % Lymphocytes (%) (Auto) 23.4 10.0-50.0 % Monocytes (%) (Auto) 8.7 0.0-12.0 % Eosinophils (%) (Auto) 2.3 0.0-7.0 % Basophils (%) (Auto) 1.0 0.0-2.0 % Neutrophils # (Auto) 4.7 1.6-8.6 10 ^3/uL Lymphocytes # (Auto) 1.7 0.4-5.4 10 ^3/uL Monocytes # (Auto) 0.6 0-1.3 10 ^3/uL Eosinophils # (Auto) 0.2 0-0.8 10 ^3/uL Basophils # (Auto) 0.1 0-0.2 10 ^3/uL Nucleated Red Blood Cells 0.0 % Prothrombin Time 10.8 9.3-11.8 sec Prothrombin Time INR 1.02 0.9-1.15 Sodium Level 142 136-145 mmol/L Potassium Level 4.5 3.5-5.1 mmol/L Chloride Level 109 H 98-107 mmol/L Carbon Dioxide Level 25 20-31 mmol/L Anion Gap 8 5-15 Blood Urea Nitrogen 30 H 9-23 mg/dL Creatinine 1.43 H 0.700-1.30 mg/dL Glomerular Filtration Rate Calc 59 >90 mL/min BUN/Creatinine Ratio 21.0 H 10.0-20.0 Serum Glucose 132 H 74-106 mg/dL Calcium Level 8.9 8.7-10.4 mg/dL Total Bilirubin 0.9 0.2-1.0 mg/dL Aspartate Amino Transferase (AST) 10 L 13-40 U/L Alanine Aminotransferase (ALT) 12 7-40 U/L Alkaline Phosphatase 77 46-116 U/L Total Protein 5.1 L 5.7-8.2 g/dL Albumin 3.0 L 3.2-4.8 g/dL Hepatitis B Surface Antigen Negative Negative Hepatitis C Antibody Negative Negative Erythrocyte Sedimentation Rate 34 H 0-20 mm/hr Hemoglobin A1c 9.2 H <5.7 % A1C Test 04/11/24 07:29 04/10/24 16:11 Range/Units C-Reactive Protein High Sensitivity 0.20 <1.0 mg/dL Lactic Acid Level 1.5 0.4-2.0 mmol/L Assessment/Plan Problem List: (1) BPH (benign prostatic hyperplasia) (2) Hydronephrosis (3) Anemia (4) Type 2 diabetes mellitus with hyperglycemia (5) Acute renal injury (6) Abdominal pain (7) Ventral hernia with obstruction, without gangrene (8) Inguinal hernia recurrent bilateral Plan PSA rose if unable to void GI consult monitor renal function Plan discussed with: Patient, Other KATHY ROSALES NP Apr 12, 2024 15:46
[2024-04-12] MEDS: TAMSULOSIN HYDROCHLORIDE 0.4 MG CAP PO SCH (17:24)
[2024-04-12] MEDS: hydrALAZINE HCL 20 MG/ML VL IV PRN (17:33)
[2024-04-12 17:40] LABS: Urine Bacteria None Seen /hpf (None Seen)
[2024-04-12 17:50] LABS: Urine Blood 1+ /uL (Negative); Urine Clarity Clear (Clear); Urine Color Light-Yellow (Yellow); Urine Protein, UAD 2+ (Negative); Urine Squamous Epithelial Cell None Seen /hpf (<5); Urine Urobilinogen Normal (Negative); Urine WBC <1 /hpf (0 - 3); Urine pH 5.5 (5.0-9.0)
[2024-04-12 17:53] LABS: Sodium Urine 47 mmol/L (40-220)
[2024-04-12 17:58] LABS: Protein, Urine 109.4 mg/dL (1-14)
[2024-04-12 17:59] LABS: Amphetamine Screen, Urine Neg (NEGATIVE); Barbiturate Scree,Urine Neg (NEGATIVE); Benzodiazephine Screen, Urine Neg (NEGATIVE); Cocaine Screen, Urine Neg (NEGATIVE)
[2024-04-12 18:00] LABS: Cannabinoid Screen, Urine Neg (NEGATIVE); Creatinine, Urine 59.53 mg/dL (30.0-125.0); Opiate Scree,Urine Neg (NEGATIVE); Phencyclidine Screen, Urine Neg (NEGATIVE); Urine Protein/Creatinine Ratio 1.84
[2024-04-12] MEDS ORDERED: InsuLIN REG 1unit/0.01ml Soln (100units/ml) SC SCH (22:00)
[2024-04-12] MEDS: metroNIDAZOLE 500MG/100ML 100 ML IV SCH (22:19)
[2024-04-12] MEDS: INSULIN LANTUS (GLARGINE) 1 /0.01ml (100units/ml) SC SCH (22:22)
--- NOTE | 2024-04-12 23:56 | DVHINCON2 ---
Date of service: Apr 12, 2024 Reason for Consultation GIB History of Present Illness 53 y/o M pt with PMH of DM2, HTN, HLP admitted with hematochezia. He reports rectal bleed since 3 days, smaller amounts. Had loose stools in the past, no diarrhea/constipation. No prior colonoscopy. No fhx of GI malignancy Past Medical History Reviewed Past Surgical History Reviewed Family History: Diabetes mellitus G8 MOTHER Allergies: Coded Allergies: NO KNOWN ALLERGIES (Unverified , 09/22/23) Home Meds Active Scripts Lancets (Freestyle Lancets) Lancets Mis, ' XX DAILY, #120 1 Refill check blood glucose daily Prov:PARMINDER BURNETTE [facility] 04/13/24 Blood Glucose Monitoring Suppl (EASY TOUCH GLUCOSE MONITO) Monitor Kit, AC XX DAILY, #1 1 Refill check blood glucose daily Prov:PARMINDER BURNETTE [facility] 04/13/24 Amoxicillin & Pot Clavulanate (AUGMENTIN TABLET) 875 Mg Tb, 875 MG PO BID for 5 Days, #10 TAB Prov:PARMINDER BURNETTE [facility] 04/13/24 Metoprolol Succinate (Metoprolol Succinate Er) 25 Mg Tab, 2 TAB PO DAILY for 30 Days, #60 TAB 5 Refills Prov:PARMINDER BURNETTE [facility] 04/13/24 Amlodipine Besylate (NORVASC TABLET) 5 Mg Tb, 5 MG PO DAILY for 30 Days, #30 TAB 1 Refill Prov:PARMINDER BURNETTE [facility] 04/13/24 Empagliflozin (Jardiance) 10 Mg Tab, 10 MG PO DAILY for 30 Days, #30 TAB 1 Refill Prov:PARMINDER BURNETTE [facility] 04/13/24 Metformin Hydrochloride (Metformin Hcl) 500 Mg Tab, 2 TAB PO BID for 30 Days, #120 TAB 3 Refills Prov:PARMINDER BURNETTE [facility] 04/13/24 Insulin Glargine (Lantus) 100 Unit/Ml Inj, 15 UNIT SC HS for 30 Days, #1 INJ 2 Refills Prov:PARMINDER BURNETTE [facility] 04/13/24 Ferrous Sulfate (Ferrous Sulfate) 325 Mg Tab, 325 MG PO DAILY for 30 Days, #30 TAB 2 Refills Prov:PARMINDER BURNETTE [facility] 10/30/23 Empagliflozin (Jardiance) 10 Mg Tab, 10 MG PO DAILY for 30 Days, #30 TAB Prov:QUINTIN MONACO [facility] 09/25/23 Ergocalciferol (VITAMIN D 02213 UNIT) 50,000 [place], [address] UNIT PO Q7D for 30 Days, #10 CAP Prov:QUINTIN MONACO [facility] 09/25/23 Atorvastatin Calcium (ATORVASTATIN CALCIUM) 20 Mg Tab, 20 MG PO HS for 30 Days, #30 TAB Prov:QUINTIN MONACO [facility] 09/25/23 Discontinued Scripts Glipizide (Glipizide) 5 Mg Tab, 1 TAB PO DAILY for 30 Days, #30 TAB 3 Refills Prov:PARMINDER BURNETTE [facility] 10/30/23 Amoxicillin & Pot Clavulanate (AUGMENTIN TABLET) 875 Mg Tb, 875 MG PO BID for 7 Days, #14 TAB Prov:PARMINDER BURNETTE [facility] 10/30/23 Enalapril Maleate (Enalapril Maleate) 2.5 Mg Tab, 5 MG PO Q12HR for 30 Days, #120 TAB 2 Refills Prov:PARMINDER BURNETTE [facility] 10/30/23 Metformin Hydrochloride (Metformin Hcl) 1,000 Mg Tab, 1000 MG PO BID for 30 Days, #60 TAB Prov:PARMINDER BURNETTE [facility] 10/30/23 Aspirin (Aspirin Low Dose) 81 Mg Tab, 81 MG PO DAILY for 30 Days, #30 TAB Prov:QUINTIN MONACO [facility] 09/25/23 Acetaminophen (Acetaminophen) 325 Mg Tab, 650 MG PO Q6HP PRN for 30 Days, #240 TAB Prov:QUINTIN MONACO [facility] 09/25/23 Current Medications Current Medications Medications (Trade) Dose Ordered Sig/Kelly Route PRN Reason Start Time Stop Time Status Last Admin Diagnostic Test (Pha) (Accu-Chek Comfort Curve T) 1 strip ACHS 04/12/24 11:30 04/12/24 22:17 Insulin Human Regular (InsuLIN R) HS SC 04/12/24 22:00 04/12/24 14:59 DC Insulin Human Regular (InsuLIN R) AC SC 04/12/24 11:30 04/12/24 17:29 Tamsulosin HCl (Flomax) 0.4 mg QPM PO 04/12/24 18:00 04/12/24 17:24 Metronidazole 100 ml @ 100 mls/hr Q8HR IV 04/12/24 22:00 04/12/24 22:19 Pantoprazole Sodium (Protonix) 40 mg DAILY IV 04/13/24 10:00 Insulin Glargine (Lantus) 16 units HS SC 04/12/24 22:00 04/12/24 22:22 Review of Systems 14 point ROS neg except mentioned above Vital Signs Vital Signs Date Time Temp Pulse Resp B/P (MAP) Pulse Ox O2 Delivery O2 Flow Rate FiO2 04/12/24 22:20 100 134/80 04/12/24 21:00 98.1 18 99 98.1 04/12/24 20:00 Room Air* 0 21 Physical Exam Ge in no distress CVS S1S2+ Lungs clear Abdomen; soft, nontender, nondistended, BS+ Labs/Diagnostic Data Labs Test 04/12/24 22:17 04/12/24 17:57 04/12/24 16:10 04/12/24 15:00 Range/Units POC Glucose 231 H 70-106 mg/dl Stool Occult Blood Negative Negative Stool Occult Blood Sample #3 Negative Urine Color Light-yellow Yellow Urine Clarity Clear Clear Urine pH 5.5 5.0-9.0 Urine Specific Nerinx 1.010 1.001-1.035 Urine Protein 2+ H Negative Urine Ketones Negative Negative Urine Blood 1+ H Negative /uL Urine Nitrite Negative Negative Urine Bilirubin Negative Negative Urine Urobilinogen Normal Negative mg/dL Urine Leukocyte Esterase Negative Negative /uL Urine RBC 2 0 - 3 /hpf Urine WBC <1 0 - 3 /hpf Urine Squamous Epithelial Cells None seen <5 /hpf Urine Bacteria None seen None Seen /hpf Urine Creatinine 59.53 30.0-125.0 mg/dL Urine Protein/Creatinine Ratio 1.84 Urine Sodium 47 40-220 mmol/L Urine Glucose 2+ H Normal mg/dL Urine Total Protein 109.4 H 1-14 mg/dL Urine Opiates Screen Neg NEGATIVE Urine Fentanyl Screen Neg NEGATIVE Urine Barbiturates Screen Neg NEGATIVE Urine Phencyclidine Screen Neg NEGATIVE Urine Amphetamines Screen Neg NEGATIVE Urine Benzodiazepines Screen Neg NEGATIVE Urine Cocaine Screen Neg NEGATIVE Urine Cannabinoids Screen Neg NEGATIVE Test 04/12/24 05:17 04/11/24 21:20 04/11/24 17:26 04/11/24 07:29 Range/Units White Blood Count 7.2 4.4-10.8 10^3/uL Red Blood Count 3.16 L 4.5-5.90 10^6/uL Hemoglobin 9.3 L 13.5-17.5 g/dL Hematocrit 26.5 L 41.0-53.0 % Mean Corpuscular Volume 84.0 80.0-100.0 fL Mean Corpuscular Hemoglobin 29.5 28.0-32.0 pg Mean Corpuscular Hemoglobin Concent 35.1 32.0-36.0 g/dL Red Cell Distribution Width 13.8 11.8-14.3 % Platelet Count 222 140-450 10^3/uL Mean Platelet Volume 9.2 6.9-10.8 fL Neutrophils (%) (Auto) 64.6 37.0-80.0 % Lymphocytes (%) (Auto) 23.4 10.0-50.0 % Monocytes (%) (Auto) 8.7 0.0-12.0 % Eosinophils (%) (Auto) 2.3 0.0-7.0 % Basophils (%) (Auto) 1.0 0.0-2.0 % Neutrophils # (Auto) 4.7 1.6-8.6 10 ^3/uL Lymphocytes # (Auto) 1.7 0.4-5.4 10 ^3/uL Monocytes # (Auto) 0.6 0-1.3 10 ^3/uL Eosinophils # (Auto) 0.2 0-0.8 10 ^3/uL Basophils # (Auto) 0.1 0-0.2 10 ^3/uL Nucleated Red Blood Cells 0.0 % Prothrombin Time 10.8 9.3-11.8 sec Prothrombin Time INR 1.02 0.9-1.15 Sodium Level 142 136-145 mmol/L Potassium Level 4.5 3.5-5.1 mmol/L Chloride Level 109 H 98-107 mmol/L Carbon Dioxide Level 25 20-31 mmol/L Anion Gap 8 5-15 Blood Urea Nitrogen 30 H 9-23 mg/dL Creatinine 1.43 H 0.700-1.30 mg/dL Glomerular Filtration Rate Calc 59 >90 mL/min BUN/Creatinine Ratio 21.0 H 10.0-20.0 Serum Glucose 132 H 74-106 mg/dL Calcium Level 8.9 8.7-10.4 mg/dL Total Bilirubin 0.9 0.2-1.0 mg/dL Aspartate Amino Transferase (AST) 10 L 13-40 U/L Alanine Aminotransferase (ALT) 12 7-40 U/L Alkaline Phosphatase 77 46-116 U/L Total Protein 5.1 L 5.7-8.2 g/dL Albumin 3.0 L 3.2-4.8 g/dL Hepatitis B Surface Antigen Negative Negative Hepatitis C Antibody Negative Negative Erythrocyte Sedimentation Rate 34 H 0-20 mm/hr Hemoglobin A1c 9.2 H <5.7 % A1C C-Reactive Protein High Sensitivity 0.20 <1.0 mg/dL Test 04/10/24 16:11 Range/Units Lactic Acid Level 1.5 0.4-2.0 mmol/L Assessment #Melena, hematochezia #Anemia, unknown chronicity #THIERRY #Hydronephrosis, renal cyst #Enlarge prostate -Monitor Hb -Plan colonoscopy if hematochezia persists. Procedure details, benefits and risks explained in detail -Will follow -Discussed care plan with pt in detail. Thank you for the consult Plan discussed with: Patient MANGO BONNER MD Apr 12, 2024 23:56
[2024-04-13 01:00] VITALS: BP 117/61; PULSE 76; RESP 18; TEMP 98.4; O2SAT 98
[2024-04-13 05:00] VITALS: BP 128/69; PULSE 85; RESP 18; TEMP 98.3; O2SAT 99
[2024-04-13 07:43] LABS: Basophils # (auto) 0 10 ^3/uL (0-0.2); Basophils % (auto) 0.8 % (0.0-2.0); Eosinophils # (auto) 0.1 10 ^3/uL (0-0.8); Eosinophils % (auto) 1.7 % (0.0-7.0); Hematocrit 25.8 % (41.0-53.0); Hemoglobin 9.1 g/dL (13.5-17.5); Lymphocytes % (auto) 16.9 % (10.0-50.0); Mean Corpuscular Hemoglobin 29.5 pg (28.0-32.0); Mean Corpuscular Hgb Conc. 35.4 g/dL (32.0-36.0); Mean Corpuscular Volume 83.3 fL (80.0-100.0); Monocytes # (auto) 0.8 10 ^3/uL (0-1.3); Monocytes % (auto) 13.2 % (0.0-12.0); Neutrophils # (auto) 3.9 10 ^3/uL (1.6-8.6); Neutrophils % (auto) 67.4 % (37.0-80.0); Platelet Count (auto) 205 10^3/uL (140-450); Red Cell Distribution Width 13.5 % (11.8-14.3); White Blood Cell 5.8 10^3/uL (4.4-10.8)
[2024-04-13 07:47] LABS: Alanine Aminotransferase 10 U/L (7-40); Albumin 3.2 g/dL (3.2-4.8); Alkaline Phosphatase 76 U/L (46-116); Anion Gap 7 (5-15); Aspartate Aminotransferase 10 U/L (13-40); BUN/Creatinine Ratio 19.2 (10.0-20.0); Blood Urea Nitrogen 25 mg/dL (9-23); Calcium 9.1 mg/dL (8.7-10.4); Carbon Dioxide 25 mmol/L (20-31); Chloride 107 mmol/L (98-107); Glucose 142 mg/dL (74-106); Potassium 3.7 mmol/L (3.5-5.1); Sodium 139 mmol/L (136-145); Total Protein 5.4 g/dL (5.7-8.2)
[2024-04-13 08:00] VITALS: PULSE 80; PULSE 85; RESP 17; O2SAT 98
[2024-04-13 09:00] VITALS: BP 131/67; PULSE 80; RESP 18; TEMP 98.7; O2SAT 98
[2024-04-13 09:06] LABS: PSA Free 0.24 ng/mL; Prostate Specific Antigen 0.8 ng/mL (0.0-4.0)
[2024-04-13] MEDS: PANTOPRAZOLE 40 MG/10 ML VIAL INJ IV SCH (09:49)
[2024-04-13] MEDS ORDERED: AUG875T PO (11:52)
[2024-04-13] MEDS ORDERED: INSLANTI SC (11:52)
[2024-04-13] MEDS ORDERED: METF-370 PO (11:52)
[2024-04-13] MEDS ORDERED: AML5T PO (11:52)
[2024-04-13] MEDS ORDERED: EMPA1TAB PO (11:52)
[2024-04-13] MEDS ORDERED: METO25TA93 PO (11:52)
[2024-04-13 13:00] VITALS: BP 134/64; PULSE 84; RESP 18; TEMP 98.1; O2SAT 95
[2024-04-13 13:38] VITALS: BP 127/68; PULSE 78
[2024-04-13] MEDS ORDERED: LANC-347 XX (14:23)
[2024-04-13] MEDS ORDERED: BLOO-169 XX (14:23)
--- NOTE | 2024-04-13 21:18 | DVHDSRES ---
Discharge Summary Date of Admission Resident Creating Document: IZZY CORMIER RESIDENT Apr 11, 2024 at 02:07 Date of Discharge: Apr 13, 2024 Admitting Diagnosis Uncontrolled diabetes mellitus GI bleed Acute renal injury Bright red blood per rectum Generalized abdominal pain Type 2 diabetes mellitus with hyperglycemia Wounds: no wounds Labs/Diagnostic Data: Laboratory Results Test 04/13/24 06:17 04/13/24 05:09 04/12/24 17:57 04/12/24 16:10 White Blood Count 5.8 10^3/uL (4.4-10.8) Red Blood Count 3.10 10^6/uL (4.5-5.90) Hemoglobin 9.1 g/dL (13.5-17.5) Hematocrit 25.8 % (41.0-53.0) Mean Corpuscular Volume 83.3 fL (80.0-100.0) Mean Corpuscular Hemoglobin 29.5 pg (28.0-32.0) Mean Corpuscular Hemoglobin Concent 35.4 g/dL (32.0-36.0) Red Cell Distribution Width 13.5 % (11.8-14.3) Platelet Count 205 10^3/uL (140-450) Mean Platelet Volume 8.9 fL (6.9-10.8) Neutrophils (%) (Auto) 67.4 % (37.0-80.0) Lymphocytes (%) (Auto) 16.9 % (10.0-50.0) Monocytes (%) (Auto) 13.2 % (0.0-12.0) Eosinophils (%) (Auto) 1.7 % (0.0-7.0) Basophils (%) (Auto) 0.8 % (0.0-2.0) Neutrophils # (Auto) 3.9 10 ^3/uL (1.6-8.6) Lymphocytes # (Auto) 1.0 10 ^3/uL (0.4-5.4) Monocytes # (Auto) 0.8 10 ^3/uL (0-1.3) Eosinophils # (Auto) 0.1 10 ^3/uL (0-0.8) Basophils # (Auto) 0 10 ^3/uL (0-0.2) Nucleated Red Blood Cells 0.0 % Sodium Level 139 mmol/L (136-145) Potassium Level 3.7 mmol/L (3.5-5.1) Chloride Level 107 mmol/L (98-107) Carbon Dioxide Level 25 mmol/L (20-31) Anion Gap 7 (5-15) Blood Urea Nitrogen 25 mg/dL (9-23) Creatinine 1.30 mg/dL (0.700-1.30) Glomerular Filtration Rate Calc 67 mL/min (>90) BUN/Creatinine Ratio 19.2 (10.0-20.0) Serum Glucose 142 mg/dL (74-106) Calcium Level 9.1 mg/dL (8.7-10.4) Total Bilirubin 1.0 mg/dL (0.2-1.0) Aspartate Amino Transferase (AST) 10 U/L (13-40) Alanine Aminotransferase (ALT) 10 U/L (7-40) Alkaline Phosphatase 76 U/L (46-116) Total Protein 5.4 g/dL (5.7-8.2) Albumin 3.2 g/dL (3.2-4.8) POC Glucose 161 mg/dl (70-106) Stool Occult Blood Negative (Negative) Stool Occult Blood Sample #3 (Negative) Test 04/12/24 15:00 04/12/24 05:17 04/11/24 21:20 04/11/24 17:26 Urine Color Light-yellow (Yellow) Urine Clarity Clear (Clear) Urine pH 5.5 (5.0-9.0) Urine Specific [place] 1.010 (1.001-1.035) Urine Protein 2+ (Negative) Urine Ketones Negative (Negative) Urine Blood 1+ /uL (Negative) Urine Nitrite Negative (Negative) Urine Bilirubin Negative (Negative) Urine Urobilinogen Normal mg/dL (Negative) Urine Leukocyte Esterase Negative /uL (Negative) Urine RBC 2 /hpf (0 - 3) Urine WBC <1 /hpf (0 - 3) Urine Squamous Epithelial Cells None seen /hpf (<5) Urine Bacteria None seen /hpf (None Seen) Urine Creatinine 59.53 mg/dL (30.0-125.0) Urine Protein/Creatinine Ratio 1.84 Urine Sodium 47 mmol/L (40-220) Urine Glucose 2+ mg/dL (Normal) Urine Total Protein 109.4 mg/dL (1-14) Urine Opiates Screen Neg (NEGATIVE) Urine Fentanyl Screen Neg (NEGATIVE) Urine Barbiturates Screen Neg (NEGATIVE) Urine Phencyclidine Screen Neg (NEGATIVE) Urine Amphetamines Screen Neg (NEGATIVE) Urine Benzodiazepines Screen Neg (NEGATIVE) Urine Cocaine Screen Neg (NEGATIVE) Urine Cannabinoids Screen Neg (NEGATIVE) Prothrombin Time 10.8 sec (9.3-11.8) Prothrombin Time INR 1.02 (0.9-1.15) Hepatitis B Surface Antigen Negative (Negative) Hepatitis C Antibody Negative (Negative) Erythrocyte Sedimentation Rate 34 mm/hr (0-20) Hemoglobin A1c 9.2 % A1C (<5.7) Test 04/11/24 07:29 04/10/24 16:11 C-Reactive Protein High Sensitivity 0.20 mg/dL (<1.0) Lactic Acid Level 1.5 mmol/L (0.4-2.0) Other Laboratory Tests 04/13/24 06:17 Brief Hx & Hospital Course: HPI: Patient is a 53-year-old male with a past medical history of type 2 diabetes mellitus, hypertension, hyperlipidemia, ventral hernia ED with a chief complaint of blood in stool for the past 3 weeks. Patient reported that he was apparently well about 3 weeks ago when he started having loose stools which were mostly dark in color sometimes black and intermittently had associated red blood in stool. Patient reports that he never had blood in his stools before. No history of hemorrhoids, no associated fever, night sweats, weight loss, constipation. Reports mild lower abdominal pain since the past 4 days. Patient also reported that since the time is GI symptoms started he is also having symptoms of urinary hesitancy, weak stream, urgency. No dysuria, no blood in urine. Patient reports feeling fatigued and gets tired easily since the time he has been having the symptoms. On admissions labs show hemoglobin 11 mg/dL, BMP shows increased BUN 29 creatinine 1.58 GFR 53, elevated serum glucose, HbA1c 9.2 %. Past medical history: Type 2 diabetes mellitus, hyperlipidemia, hypertension, umbilical hernia Past surgical history: None Social history: Patient denies smoking, alcohol, drug use Home medications: Metformin 1000 mg q.d., glipizide 1 tablet daily, enalapril 2.5 mg daily PCP: Patient does not have a PCP or insurance Hospital course Patient was admitted to the hospital and was given IV fluids. CT abdomen pelvis with IV contrast showed right renal cyst, mild bilateral hydronephrosis with mild distention of urinary bladder and enlarged prostate. Stomach is mildly distended, mild wall thickening of paroxysmal small bowel loops which may be due to inadequate distention, segmental decompression of rectum with wall thickening. Started on metronidazole 500 mg IV Q 8 hours and GI were consulted. Stool sample was sent for SOB which was negative, patient was started on Protonix 40 mg IV. Digital rectal examination revealed firm nontender mass in the anterior part of the rectum and CT findings as above and patient having symptoms of urinary hesitancy and weak stream, blood sample for PSA was sent which is pending and patient was started on tamsulosin 0.4 mg once daily. Urology were Consulted who recommended putting a Moya's catheter lives with the patient is unable to void urine. Bladder scan was done with a post void residual volume around 150 mL and Moya's catheter was not put. Subsequent day patient did not complain of blood in stool or dark stools, vitally stable, H&H were stable. On admission patient had THIERRY on CKD with FENa less than 1% following which the patient was given IV fluids and is THIERRY resolved. Patient had HbA1c level of 9.2% he was started on insulin Lantus 15 units HS with a goal POC glucose 140-180 mg/dL. Patient at the time of discharge did not complain of abdominal pain, nausea, vomiting, blood in stool or dark colored stool and was discharged stable condition to home. Review of systems Patient is seen and examined at the bedside. A/O x4. Patient denies abdominal pain, fever, diarrhea, nausea, vomiting. Patient reported having 1 bowel movement in the morning which was reportedly dark stools. Vitals stable, blood pressure WNL, heart rate and rhythm regular. Physical Examination Gen - no pallor, no icterus, no cyanosis, no clubbing, no LAD, no edema . Skin - Patients skin is warm and dry. HEENT - normocephalic, atraumatic, slightly dry mucous membranes. Neck - full ROM, no LAD, no JVD. Pulmonary - B/L vesicular breath sounds. no crackles , no wheezing, no stridor. cardiovascular - normal S1,S2 heard. no murmurs heard. peripheral pulses normal radial 2+, pedal 2+. capillary refill normal <2 secs. GI - soft abdomen without tenderness to palpation . no hepatospleenomegaly. bowel sounds normoactive. ventral hernia felt above the umbilicus Neurological - Patient is A/O X 3 . Bilateral upper extremity strength 5/5, bilateral lower extremity strength 5/5, no facial droop, normal speech, no tremor, no sensory deficiets. Digital rectal examination: firm, non tender mass felt in the anterior wall of the rectum and anal canal. No external hemorrhoids seen. no internal hemorrhoids felt. Discharge plan Patient was discharged in stable condition to home Medication: For blood pressure control started on amlodipine 5 mg once daily and metoprolol succinate 50 mg once daily Given Augmentin 875 mg p.o. b.i.d. for 5 days for acute gastroenteritis Started on insulin Lantus 15 units SC HS, metformin 1000 mg b.i.d., empagliflozin 10 mg p.o. daily for uncontrolled T2DM with hyperglycemia Advised to follow up in the GI outpatient, Nephrology outpatient for workup of CKD, follow up in the surgery outpatient clinic for hernia Consults/Reason for consult Urology consultation due to mild bilateral hydronephrosis and bladder distention and enlarged prostate GI consultation due to history of GI bleed Operations or Procedures CT abdomen pelvis with IV contrast FINDINGS: Bibasilar atelectasis. Partially visualized heart is unremarkable. Liver, spleen, gallbladder, pancreas and adrenal glands unremarkable. 1.5 cm right renal cyst. Mild bilateral hydronephrosis with no obstructing calculus noted. Otherwise, kidneys, ureters and urinary bladder are unremarkable. Mild distention of the urinary bladder. Prostate measures 3.6 x 5 x 4.1 cm. Stomach is mildly distended. Otherwise unremarkable. Mild wall thickening of proximal small bowel loops which may be due to inadequate distention. The remainder of the small bowel loops unremarkable. Appendix is unremarkable. Large amount of fecal material within the colon. Segmental decompression of the rectum with wall thickening. No evidence of intraperitoneal free air or free fluid. No evidence of aortic aneurysm or dissection. No significant lymphadenopathy. Small fat containing bilateral inguinal hernias. Right paramedian large fat containing supraumbilical hernia. Small fat containing umbilical hernia. Minimal soft tissue edema. No destructive osseous lesions are noted. Sclerotic focus over the right pelvic bone and right proximal femur which may represent bone islands blastic lesions not excluded. IMPRESSION: Mild wall thickening of proximal small bowel loops which may be due to inadequate distention with enteritis not excluded. Constipation. Segmental decompression of the rectum wall thickening . Neoplasm can not be excluded. Bronchoscopy is recommended for further evaluation. Mild bilateral hydronephrosis with a obstructing calculus noted. Small right renal cyst. Enlarged prostate. Recommend correlation with PSA. Mild bilateral hydro nephrosis might be from obstructive uropathy with mild distention of the urinary bladder. Recommend clinical correlation. Ventral abdominal fat containing hernias as detailed above. Condition at Discharge: Good Final Diagnosis/Problems List # Acute on chronic GI bleed # Acute gastroenteritis # Enlarged prostate likely ?BPH ?prostate CA # B/L hydronephrosis # THIERRY on CKD likely hemodynamically mediated vs obstructuve # Uncontrolled T2DM with hyperglycemia # Uncontrolled Hypertension # Hernia Discharge Disposition: Home Discharge Instruct/Medications Diet: Consistent carbohydrate Activity: No Restrictions, As Tolerated Follow Up/Referral: Follow up in the Discharge clinic in one week with daily blood pressure and morning blood glucose log and patient to be referred to GI clinic and nephrology clinic. Follow up with GI in the outpatient clinic in 2-4 weeks for further evaluation Follow up with nephrology in the outpatient clinic in 2-4 weeks Follow up in the surgery outpatient clinic in 4-6 weeks Medications: as per EMR Discharge Statement: "Patient was advised to return to the ER or call 911 if any headaches, dizziness, shortness of breath, chest pain, abdominal pain, bleeding, fevers, or worsening of medical condition. Patient was counseled about treatment plan, medications, possible side effects, patientverbalized understanding. All questions were answered to the best of my ability. This discharge took greater then 30 minutes in planning, reviewing documentation, counseling the patient, and discussing with other team members." ASSESSMENT ASSESSMENT Assessment # Acute on chronic GI bleed # Acute gastroenteritis # Enlarged prostate likely ?BPH ?prostate CA # B/L hydronephrosis # THIERRY on CKD likely hemodynamically mediated vs obstructuve # Uncontrolled T2DM with hyperglycemia # Uncontrolled Hypertension # Hernia Date of Service: Apr 13, 2024 Billing Provider: KAYLA WILLIAMSON MD Common Visit Codes: 68160-GTR/OBS DISCH DAY >30min IZZY CORMIER RESIDENT Apr 13, 2024 21:18 KAYLA WILLIAMSON MD Apr 18, 2024 23:55
[2024-04-14 13:07] LABS: Prostate Specific Antigen 0.7 ng/mL (0.0-4.0)
[2024-04-14 14:06] LABS: PSA Free 0.23 ng/mL
== END 2024-04-13 14:35 | disposition home or self-care (01) | DRG 253 ==
LOC: ER 15:45 → UNDOADMIN 22:40 → DOU IN ICU 22:40 → TELE 04-11 01:28 → DOU IN ICU 04-11 01:28 → TELE 04-11 02:07 → WEST WING 04-11 10:26
PROVIDERS: ADMIT Student in an Organized Health Care Education/Training Program; ATTEND Student in an Organized Health Care Education/Training Program
DX: K92.2 Gastrointestinal hemorrhage, unspecified (principal); N17.9 Acute kidney failure, unspecified; D63.8 Anemia in other chronic diseases classified elsewhere; K43.6 Other and unspecified ventral hernia with obstruction, without gangrene; A04.9 Bacterial intestinal infection, unspecified; N13.2 Hydronephrosis with renal and ureteral calculous obstruction; E11.65 Type 2 diabetes mellitus with hyperglycemia; N40.0 Benign prostatic hyperplasia without lower urinary tract symptoms; E78.5 Hyperlipidemia, unspecified; N28.1 Cyst of kidney, acquired; K40.20 Bilateral inguinal hernia, without obstruction or gangrene, not specified as recurrent; I12.9 Hypertensive chronic kidney disease with stage 1 through stage 4 chronic kidney disease, or unspecified chronic kidney disease; N18.9 Chronic kidney disease, unspecified; K52.9 Noninfective gastroenteritis and colitis, unspecified; C61 Malignant neoplasm of prostate; Z79.84 Long term (current) use of oral hypoglycemic drugs; Z83.3 Family history of diabetes mellitus; Z79.899 Other long term (current) drug therapy; Z79.82 Long term (current) use of aspirin; Z79.4 Long term (current) use of insulin
CPT/HCPCS: 36415; 71045; 74177; 80053; 80307; 81001; 82270; 82570; 82962; 83036; 83605; 84154; 84156; 84300; 85014; 85018; 85025; 85610; 85652; 86141; 86803; 87340; G0378; J1815; J2405; J2470; J3490

== ENCOUNTER 2024-07-22 13:28 | Inpatient (IN) | payer MEDICAID ==
[~2024-07-22] VITALS: Ht 188 cm; Wt 89.6 kg
[~2024-07-22 13:28] MED LIST changes: -ACET-1882 PO; +AML5T PO; -ASPI-325 PO; +BLOO-169 XX; -ENAL1TAB42 PO; -GLIP5TAB21 PO; +INSLANTI SC; +LANC-347 XX; +METF-370 PO; -METF-372 PO; +METO25TA93 PO
--- NOTE | 2024-07-22 14:43 | DVH ---
EXAM: XY CHEST PORTABLE HISTORY: sob COMPARISON: XY CHEST PORTABLE on DOS: 04/10/24 TECHNIQUE: PA standing view of the chest was performed. FINDINGS: There is new hazy opacity in the left lung base. No pneumothorax or pulmonary edema. There is mild central peribronchial thickening. The heart is borderline enlarged. IMPRESSION: 1. New left basilar pneumonia. 2. Mild reactive airways disease.
--- NOTE | 2024-07-22 15:06 | ED.PDOC ---
HPI Comments 54 y/o M, with PMHX presents to the ED for CC of HTN. Patient states, that he has been experiencing abnormally high blood pressure reading x1 day. Patient endorses, new onset symptoms of bilateral leg swelling that goes from his legs all the way to his scrotum. Patient comments on achy burning pain in scrotal area. Patient denies penile discharge, fever, chills, nausea, vomiting, or headache. No other associated symptom's, modifiers, recent injuries or sick contacts at this time. Chief Complaint: High Blood Pressure Time Seen by MD: 14:00 Primary Care Provider: JESENIA Reviewed Notes: Nurses Notes, Medications, Allergies Allergies: Coded Allergies: NO KNOWN ALLERGIES (Unverified , 09/22/23) Home Meds Active Scripts Lancets (Freestyle Lancets) Lancets Mis, ' XX DAILY, #120 1 Refill check blood glucose daily Prov:PARMINDER BURNETTE RESIDENT 04/13/24 Blood Glucose Monitoring Suppl (EASY TOUCH GLUCOSE MONITO) Monitor Kit, AC XX DAILY, #1 1 Refill check blood glucose daily Prov:PARMINDER BURNETTE RESIDENT 04/13/24 Amoxicillin & Pot Clavulanate (AUGMENTIN TABLET) 875 Mg Tb, 875 MG PO BID for 5 Days, #10 TAB Prov:PARMINDER BURNETTE RESIDENT 04/13/24 Metoprolol Succinate (Metoprolol Succinate Er) 25 Mg Tab, 2 TAB PO DAILY for 30 Days, #60 TAB 5 Refills Prov:PARMINDER BURNETTE 04/13/24 Amlodipine Besylate (NORVASC TABLET) 5 Mg Tb, 5 MG PO DAILY for 30 Days, #30 TAB 1 Refill Prov:PARMINDER BURNETTE 04/13/24 Empagliflozin (Jardiance) 10 Mg Tab, 10 MG PO DAILY for 30 Days, #30 TAB 1 Refill Prov:PARMINDER BURNETTE RESIDENT 04/13/24 Metformin Hydrochloride (Metformin Hcl) 500 Mg Tab, 2 TAB PO BID for 30 Days, #120 TAB 3 Refills Prov:PARMINDER BURNETTE RESIDENT 04/13/24 Insulin Glargine (Lantus) 100 Unit/Ml Inj, 15 UNIT SC HS for 30 Days, #1 INJ 2 Refills Prov:PARMINDER BURNETTE RESIDENT 04/13/24 Ferrous Sulfate (Ferrous Sulfate) 325 Mg Tab, 325 MG PO DAILY for 30 Days, #30 TAB 2 Refills Prov:MAGO SILVAPARMINDER RESIDENT 10/30/23 Empagliflozin (Jardiance) 10 Mg Tab, 10 MG PO DAILY for 30 Days, #30 TAB Prov:PRESTONELLIOT ROBERTISA RESIDENT 09/25/23 Ergocalciferol (VITAMIN D 65274 UNIT) 50,000 [place], [address] UNIT PO Q7D for 30 Days, #10 CAP Prov:QUINTIN MONACO [facility] 09/25/23 Atorvastatin Calcium (ATORVASTATIN CALCIUM) 20 Mg Tab, 20 MG PO HS for 30 Days, #30 TAB Prov:QUINTIN MONACO RESIDENT 09/25/23 Information Source: Patient Mode of Arrival: Ambulatory Severity: Moderate Timing: Days Duration: Since onset Prehospital treatment: None Onset: At Rest Cardiac Risk Factors: HTN, Diabetes PE Risk Factors: None History of: None Modifying Factors: Nothing Associated Signs and Symptoms: None Past Medical History PAST MEDICAL HISTORY: DM, High Lipids, HTN Surgical History: Denies all surgeries Family History Family History: Reviewed,noncontributory to illness Social History Smoker: Non-Smoker Alcohol: Denies ETOH Use Drugs: Denies Drug Use Lives In: Home Constitutional: denies: chills, diaphoresis, fatigue, fever, malaise, sweats, weakness, others EENTM: denies: blurred vision, double vision, ear bleeding, ear discharge, ear drainage, ear pain, ear ringing, eye pain, eye redness, hearing loss, mouth pain, mouth swelling, nasal discharge, nose bleeding, nose congestion, nose pain, photophobia, tearing, throat pain, throat swelling, voice changes, others Respiratory: denies: cough, hemoptysis, orthopnea, SOB at rest, shortness of breath, SOB with excertion, stridor, wheezing, others Cardiovascular: denies: chest pain, dizzy spells, diaphoresis, Dyspnea on exertion, edema, irregular heart beat, left arm pain, lightheadedness, palpitations, PND, syncope, others Gastrointestinal: denies: abdomen distended, abdominal pain, blood streaked bowels, constipated, diarrhea, dysphagia, difficulty swallowing, hematemesis, melena, nausea, poor appetite, poor fluid intake, rectal bleeding, rectal pain, vomiting, others Genitourinary: reports: burning, testicle swelling; denies: dysuria, flank pain, frequency, hematuria, incontinence, penile discharge, penile sore, pain, testicle pain, urgency, others Neurological: denies: dizziness, fainting, headache, left sided numbness, left sided weakness, numbness, paresthesia, pre-existing deficit, right sided nu mbness, right sided weakness, seizure, speech problems, tingling, tremors, weakness, others Musculoskeletal: reports: others (bilateral leg swelling); denies: back pain, gout, joint pain, joint swelling, muscle pain, muscle stiffness, neck pain Integumetry: reports: others (itchyness); denies: bruises, change in color, change in hair/nails, dryness, laceration, lesions, lumps, rash, wounds Allergic/Immunocompromised: denies: Difficulty Healing, Frequent Infections, Hives, Itching, others Hematologic/Lymphatic: denies: anemia, blood clots, easy bleeding, easy bruising, swollen glands, others Endocrine: denies: excessive hunger, excessive sweating, excessive thirst, excessive urination, flushing, intolerance to cold, intolerance to heat, unexplained weight gain, unexplained weight loss, others Psychiatric: denies: anxiety, bipolar disorder, depression, hopeless, panic disorder, schizophrenia, sleepless, suicidal, others All Other Systems: Reviewed and Negative Physical Exam General Appearance: No Apparent Distress, Normal HEENT: Normal ENT Inspection, Pharynx Normal, TMs Normal Neck: Full Range of Motion, Non-Tender, Normal, Normal Inspection Respiratory: Chest Non-Tender, Lungs Clear, No Accessory Muscle Use, No Respiratory Distress, Normal Breath Sounds Cardiovascular: No Edema, No Murmur, No Gallop, Normal Peripheral Pulses, Regular Rate/Rhythm Breast Exam: Deferred Gastrointestinal: No Organomegaly, Non Tender, No Pulsatile Mass, Normal Bowel Sounds, Soft Genitalia: Deferred Pelvic: Deferred Rectal: Deferred Extremities: No calf tenderness, Normal inspection, Normal range of motion, Non-tender, Pedal edema, Swelling (bilateral legs to mid thigh) Musculoskeletal : Apperance: Normal Neurologic: scalper operator II-XII nml as Tested, No Motor Deficits Cerebellar Function: Normal Reflexes: Normal Skin: Dry, Normal Color, Warm Lymphatic: No Adenopathy Was a procedure done? Was a procedure done?: No CP Differential Dx Differential Diagnosis: A-fib, A-Flutter, Angina, Anxiety / Panic Attack, Atrial Dysrhythmia, AV Block 1st Degree, AV Block 2nd Degree, Hyperthyroidism, Hyperventilation, MAT, TN, PAC's, PSVT, Pulmonary Embolus Differential Diagnosis: HTN Essential, HTN Accelerated X-Ray, Labs, Meds, VS Vital Signs Date Time Temp Pulse Resp B/P (MAP) Pulse Ox O2 Delivery O2 Flow Rate FiO2 07/22/24 15:35 94 20 98 Room Air* 0 21 07/22/24 15:35 97.8 94 20 166/94 (118) 98 97.8 07/22/24 13:46 98.8 99 18 166/74 (104) 95 Lab Test 07/22/24 15:01 07/22/24 13:53 Range/Units White Blood Count 6.1 4.4-10.8 10^3/uL Red Blood Count 3.95 L 4.5-5.90 10^6/uL Hemoglobin 9.7 L 13.5-17.5 g/dL Hematocrit 30.3 L 41.0-53.0 % Mean Corpuscular Volume 76.6 L 80.0-100.0 fL Mean Corpuscular Hemoglobin 24.4 L 28.0-32.0 pg Mean Corpuscular Hemoglobin Concent 31.9 L 32.0-36.0 g/dL Red Cell Distribution Width 15.7 H 11.8-14.3 % Platelet Count 276 140-450 10^3/uL Mean Platelet Volume 7.7 6.9-10.8 fL Neutrophils (%) (Auto) 74.9 37.0-80.0 % Lymphocytes (%) (Auto) 12.5 10.0-50.0 % Monocytes (%) (Auto) 11.6 0.0-12.0 % Eosinophils (%) (Auto) 0.4 0.0-7.0 % Basophils (%) (Auto) 0.6 0.0-2.0 % Neutrophils # (Auto) 4.6 1.6-8.6 10 ^3/uL Lymphocytes # (Auto) 0.8 0.4-5.4 10 ^3/uL Monocytes # (Auto) 0.7 0-1.3 10 ^3/uL Eosinophils # (Auto) 0 0-0.8 10 ^3/uL Basophils # (Auto) 0 0-0.2 10 ^3/uL Nucleated Red Blood Cells 0.0 % Prothrombin Time 10.9 9.3-11.8 sec Prothrombin Time INR 1.03 0.9-1.15 Activated Partial Thromboplast Time 30.8 24.5-34.5 SEC D-Dimer, Quantitative 1.51 H 0.0-0.49 mg/L FEU Sodium Level 134 L 136-145 mmol/L Potassium Level 4.2 3.5-5.1 mmol/L Chloride Level 104 98-107 mmol/L Carbon Dioxide Level 23 20-31 mmol/L Anion Gap 7 5-15 Blood Urea Nitrogen 39 H 9-23 mg/dL Creatinine 1.51 H 0.700-1.30 mg/dL Glomerular Filtration Rate Calc 55 >90 mL/min BUN/Creatinine Ratio 25.8 H 10.0-20.0 Serum Glucose 150 H 74-106 mg/dL Calcium Level 8.4 L 8.7-10.4 mg/dL Total Bilirubin 0.7 0.2-1.0 mg/dL Aspartate Amino Transferase (AST) 34 13-40 U/L Alanine Aminotransferase (ALT) 25 7-40 U/L Alkaline Phosphatase 179 H 46-116 U/L Troponin I High Sensitivity 23 </=54 ng/L B-Type Natriuretic Peptide 1014.31 0-100 pg/mL Total Protein 5.4 L 5.7-8.2 g/dL Albumin 3.1 L 3.2-4.8 g/dL POC Glucose 143 H 70-106 mg/dl [place] [id number] Ph: [phone] DIAGNOSTIC IMAGING Diagnostic Imaging Report : [id number] Signed PATIENT: XENIA WALLISOACCT: [id number] UNIT: [id number] : 1970 LOC: ER ROOM / BED: / AGE / SEX: 54 / M ADM STATUS: REG ER SERVICE 1411 ORDERING PHYSICIAN: KALYN MIRELES MD PROCEDURE(s): CXRP - CHEST PORTABLE REASON: sob ORDER NUMBER(s): [id number], ACCESSION NUMBER(s): [id number] EXAM: XY CHEST PORTABLE HISTORY: sob COMPARISON: XY CHEST PORTABLE on DOS: 04/10/24 TECHNIQUE: PA standing view of the chest was performed. FINDINGS: There is new hazy opacity in the left lung base. No pneumothorax or pulmonary edema. There is mild central peribronchial thickening. The heart is borderline enlarged. IMPRESSION: 1. New left basilar pneumonia. 2. Mild reactive airways disease. ATED BY: SHERI PRINCE MD DICTATED DATE/TIME: 07/22/24 1440 SIGNED BY: SHERI PRINCE MD SIGNED DATE/TIME: 07/22/24 1440 CC: X-Ray, Labs, Meds, VS Comment This 54-year-old male presents secondary survey history increasing bilateral lower extremity edema. Denies having history of heart failure having similar episodes in the past. He was also complaining of shortness of breath. He was worried he was significant for multiple findings including a possible pneumonia. He we will be D-dimer. Based on his issues, the patient may have acute heart failure with possible right heart strain secondary PE. He had a CT angio of the chest ordered. Additionally, he was started on azithromycin and Rocephin for community-acquired pneumonia. He was findings 40 mg of Lasix IV secondary to his shortness of breath and bilateral extremity edema. He was also noted to have diminished renal function. Patient denies having any of these significant possibly life-threatening findings in the past. The patient will be admitted for further workup management multiple complaints. Time of 1ST Reevaluation: 14:30 Reevaluation 1ST: Unchanged Patient Education/Counseling: Diagnosis, Treatment Family Education/Counseling: No Family Present Departure 1 Departure Time of Disposition: 16:03 Impression: Primary Impression: Abdominal pain Additional Impressions: Acute renal injury Hypoxia Dyspnea Edema Pneumonia CHF (congestive heart failure) Disposition: 09 ADMITTED INPATIENT Condition: Guarded Critical Care Note Critical Care Time?: Yes (45 min-critical care time only) Critical care comment: Due to a high probability of clinically significant, life threatening deterioration, the patient required my highest level of preparedness to in [facility] emergently and I personally spent this critical care time directly and personally managing the patient. This critical care time included obtaining a history; examining the patient; pulse oximetry; ordering and review of studies; arranging urgent treatment with development of a management plan; evaluation of patient's response to treatment; frequent reassessment; and, discussions with other providers. This critical care time was performed to assess and manage the high probability of imminent, life-threatening deterioration that could result in multi-organ failure. It was exclusive of separately billable procedures and treating other patients and teaching time. Stability Stability form required: No Heart Score Heart Score: Heart Score Response (Comments) Value History N/A 0 EKG N/A 0 Age N/A 0 Risk Factors N/A 0 Troponin N/A 0 Total 0 I personally scribed for KALYN MIRELES MD ([email or web address]) on 07/22/24 at 15:06. Electronically submitted by Barbara Betancourt ([email or web address]). I personally scribed for KALYN MIRELES MD ([email or web address]) on 07/22/24 at 15:17. Electronically submitted by Barbara Betancourt ([email or web address]). KALYN MIRELES MD Jul 22, 2024 15:06
[2024-07-22 15:11] LABS: Basophils # (auto) 0 10 ^3/uL (0-0.2); Eosinophils # (auto) 0 10 ^3/uL (0-0.8); Eosinophils % (auto) 0.4 % (0.0-7.0); Hemoglobin 9.7 g/dL (13.5-17.5); Monocytes # (auto) 0.7 10 ^3/uL (0-1.3)
[2024-07-22 15:13] LABS: Basophils % (auto) 0.6 % (0.0-2.0); Hematocrit 30.3 % (41.0-53.0); Lymphocytes # (auto) 0.8 10 ^3/uL (0.4-5.4); Lymphocytes % (auto) 12.5 % (10.0-50.0); Mean Corpuscular Hemoglobin 24.4 pg (28.0-32.0); Mean Corpuscular Hgb Conc. 31.9 g/dL (32.0-36.0); Mean Corpuscular Volume 76.6 fL (80.0-100.0); Monocytes % (auto) 11.6 % (0.0-12.0); Neutrophils # (auto) 4.6 10 ^3/uL (1.6-8.6); Neutrophils % (auto) 74.9 % (37.0-80.0); Platelet Count (auto) 276 10^3/uL (140-450); Red Blood Cells 3.95 10^6/uL (4.5-5.90); Red Cell Distribution Width 15.7 % (11.8-14.3); White Blood Cell 6.1 10^3/uL (4.4-10.8)
[2024-07-22] MEDS: IOHEXOL 350 MG/ML 100ML IJ ONE (15:30)
[2024-07-22 15:34] LABS: INR 1.03 (0.9-1.15); Partial Thromboplastin Time 30.8 SEC (24.5-34.5); Prothrombin Time 10.9 sec (9.3-11.8)
[2024-07-22 15:35] VITALS: PULSE 94; RESP 20; O2SAT 98
[2024-07-22 15:39] LABS: Alanine Aminotransferase 25 U/L (7-40); Anion Gap 7 (5-15); Aspartate Aminotransferase 34 U/L (13-40); BUN/Creatinine Ratio 25.8 (10.0-20.0); Carbon Dioxide 23 mmol/L (20-31); Chloride 104 mmol/L (98-107); Potassium 4.2 mmol/L (3.5-5.1)
[2024-07-22 15:40] LABS: Albumin 3.1 g/dL (3.2-4.8); Alkaline Phosphatase 179 U/L (46-116); Bilirubin, Total 0.7 mg/dL (0.2-1.0); Blood Urea Nitrogen 39 mg/dL (9-23); Calcium 8.4 mg/dL (8.7-10.4); Glucose 150 mg/dL (74-106); Sodium 134 mmol/L (136-145); Total Protein 5.4 g/dL (5.7-8.2)
[2024-07-22] MEDS: FUROSEMIDE 40 MG/4 ML VIAL IV ONE (16:01)
--- NOTE | 2024-07-22 17:07 | DVH ---
CTA Chest with intravenous contrast INDICATION: r/o PE COMPARISON: None TECHNIQUE: Multidetector spiral CTA of the chest was performed of the chest with intravenous contrast . PULMONARY ANGIOGRAPHY PROTOCOL was utilized using a bolus-tracking technique centered on the main p ulmonary artery. Axial, coronal and sagittal multiplanar and MIP reformats were performed. CONTRAST: Type of contrast: Omni 350 Contrast injected: 70 ml Radiation dose : Chest: CTDI volume is 51 mGy. Dose-length product is 796 mGy*cm The dose indicators for CT are the volume computed Tomography (CT) dose Index (CTDIvol) and the dose Length product (DLP), and are measured in units of mGy and mGy-cm, respectively. These indicators are not patient dose, but values generated from the CT scanner acquisition factors. The report includes radiation exposure data for exposures received during this examination. Findings: Pulmonary artery: No pulmonary embolism Lower neck: Normal thyroid. Lungs: Patchy ground-glass opacities in both lungs greatest in the left lower lung. Bibasilar atelec tasis and consolidation. Heart/Vascular Structures: [id number] cardiomegaly. Small pericardial effusion. Lymph Nodes: Mediastinal and hilar lymphadenopathy. Pleura: Small right and moderate left pleural effusions. Musculoskeletal: No acute osseous abnormality. Soft tissues: Normal. Upper abdomen: Limited portions of the upper abdomen are unremarkable. IMPRESSION: 1. No pulmonary embolism. 2. Bilateral pleural effusions left greater than right. Patchy consolidation in both lungs left grea ter than right. Mediastinal and hilar lymphadenopathy. Suspect infectious/inflammatory process. Conge stive failure or fluid overload could have a similar appearance. Clinical correlation and continued follow-up is recommended. HS:Y
[2024-07-22] MEDS: cefTRIAXone 1GM/50ML D5W 50 ML IV ONE (17:31)
[2024-07-22] MEDS ORDERED: DOCUSATE SOD 100 MG CAP PO PRN (18:00)
[2024-07-22] MEDS ORDERED: HYDROmorphone HCL 2 MG/ML VL/or syr IV PRN (18:00)
[2024-07-22] MEDS ORDERED: HYDROcodone-ACET 5/325MG TAB PO PRN (18:00)
[2024-07-22] MEDS ORDERED: DEXTROSE (50%) 50ML SYRG IV PRN (18:00)
--- NOTE | 2024-07-22 18:04 | DVHHP2 ---
Admitting Diagnosis: High blood pressure History of Present Illness 54 y/o M, with PMHX presents to the ED for CC of HTN. Patient states, that he has been experiencing abnormally high blood pressure reading x1 day. Patient endorses, new onset symptoms of bilateral leg swelling that goes from his legs all the way to his scrotum. Patient comments on achy burning pain in scrotal area. Patient denies penile discharge, fever, chills, nausea, vomiting, or headache. No other associated symptom's, modifiers, recent injuries or sick contacts at this time. PAST MEDICAL HISTORY: DM, High Lipids, HTN Surgical History: Denies all surgeries Family History Family History: Reviewed,noncontributory to illness Social History Smoker: Non-Smoker Alcohol: Denies ETOH Use Drugs: Denies Drug Use Lives In: Home Patient Family History: Diabetes mellitus G8 MOTHER Allergies: Coded Allergies: NO KNOWN ALLERGIES (Unverified , 09/22/23) Home Meds Active Scripts Lancets (Freestyle Lancets) Lancets Mis, ' XX DAILY, #120 1 Refill check blood glucose daily Prov:PARMINDER BURNETTE RESIDENT 04/13/24 Blood Glucose Monitoring Suppl (EASY TOUCH GLUCOSE MONITO) Monitor Kit, AC XX DAILY, #1 1 Refill check blood glucose daily Prov:PARMINDER BURNETTE RESIDENT 04/13/24 Amoxicillin & Pot Clavulanate (AUGMENTIN TABLET) 875 Mg Tb, 875 MG PO BID for 5 Days, #10 TAB Prov:PARMINDER BURNETTE RESIDENT 04/13/24 Metoprolol Succinate (Metoprolol Succinate Er) 25 Mg Tab, 2 TAB PO DAILY for 30 Days, #60 TAB 5 Refills Prov:PARMINDER BURNETTE 04/13/24 Amlodipine Besylate (NORVASC TABLET) 5 Mg Tb, 5 MG PO DAILY for 30 Days, #30 TAB 1 Refill Prov:PARMINDER BURNETTE RESIDENT 04/13/24 Empagliflozin (Jardiance) 10 Mg Tab, 10 MG PO DAILY for 30 Days, #30 TAB 1 Refill Prov:PARMINDER BURNETTE RESIDENT 04/13/24 Metformin Hydrochloride (Metformin Hcl) 500 Mg Tab, 2 TAB PO BID for 30 Days, #120 TAB 3 Refills Prov:PARMINDER BURNETTE RESIDENT 04/13/24 Insulin Glargine (Lantus) 100 Unit/Ml Inj, 15 UNIT SC HS for 30 Days, #1 INJ 2 Refills Prov:PARMINDER BURNETTE RESIDENT 04/13/24 Ferrous Sulfate (Ferrous Sulfate) 325 Mg Tab, 325 MG PO DAILY for 30 Days, #30 TAB 2 Refills Prov:PARMINDER BURNETTE RESIDENT 10/30/23 Empagliflozin (Jardiance) 10 Mg Tab, 10 MG PO DAILY for 30 Days, #30 TAB Prov:QUINTIN MONACO [facility] 09/25/23 Ergocalciferol (VITAMIN D 23303 UNIT) 50,000 [place], [address] UNIT PO Q7D for 30 Days, #10 CAP Prov:QUINTIN MONACO [facility] 09/25/23 Atorvastatin Calcium (ATORVASTATIN CALCIUM) 20 Mg Tab, 20 MG PO HS for 30 Days, #30 TAB Prov:QUINTIN MONACO [facility] 09/25/23 Current Medications Current Medications Medications (Trade) Dose Ordered Sig/Kelly Route PRN Reason Start Time Stop Time Status Last Admin Furosemide (Lasix Injection) 40 mg BID IV 07/22/24 18:00 UNV Ceftriaxone Sodium 50 ml @ 100 mls/hr DAILY IV 07/23/24 10:00 UNV Azithromycin 250 ml @ 125 mls/hr DAILY IV 07/23/24 10:00 UNV Docusate Sodium (Colace Capsule) 100 mg BIDPRN PRN PO FOR CONSTIPATION 07/22/24 18:00 UNV Acetaminophen (Tylenol Tablet) 650 mg Q6HP PRN PO PAIN SCALE 1-3 OR TEMP>100.4 07/22/24 18:00 UNV Acetaminophen/ Hydrocodone Bitart (Glenn 5/325MG Tab) 1 tab Q4HP PRN PO MODERATE PAIN (4-6 PAIN SCALE) 07/22/24 18:00 UNV Hydromorphone HCl (Dilaudid Injection) 0.5 mg Q4HP PRN IV SEVERE PAIN (7-10 PAIN SCALE) 07/22/24 18:00 UNV Ondansetron HCl (Zofran) 4 mg Q4HP PRN IV NAUSEA / VOMITING 07/22/24 18:00 UNV Amlodipine Besylate (Norvasc Tablet) 5 mg DAILY PO 07/23/24 10:00 UNV Atorvastatin Calcium (Lipitor) 20 mg HS PO 07/22/24 22:00 UNV Empaglifozin (Jardiance) 10 mg DAILY PO 07/23/24 10:00 UNV Ergocalciferol (Vitamin D 50,000 Unit) 50,000 unit Q7D PO 07/22/24 18:00 UNV Ferrous Sulfate 325 mg DAILY PO 07/23/24 10:00 UNV Insulin Glargine (Lantus) 15 units HS SC 07/22/24 22:00 UNV Patient Own Medication 2 tab DAILY PO 07/23/24 10:00 UNV Diagnostic Test (Pha) (Accu-Chek Comfort Curve T) 1 strip ACHS 07/22/24 22:00 UNV Insulin Human Regular (InsuLIN R) ACHS SC 07/22/24 22:00 UNV Dextrose 50 ml UD PRN IV Blood Sugar LESS THAN 60 07/22/24 18:00 UNV Vital Signs Vital Signs Date Time Temp Pulse Resp B/P (MAP) Pulse Ox O2 Delivery O2 Flow Rate FiO2 07/22/24 16:01 166/94 07/22/24 15:35 94 20 98 Room Air* 0 21 07/22/24 15:35 97.8 97.8 Physical Exam Generally 65 years old male, well nourished well developed. Mild distress HEENT-atraumatic normocephalic Heart-regular rate and rhythm Lungs-mild crackles in lower lung [place] Abdomen soft nontender nondistended Musculoskeletal-plus two pitting edema, no cyanosis Neuro-AO x3, no focal deficits Results Labs Test 07/22/24 16:19 07/22/24 15:01 07/22/24 13:53 Range/Units Troponin I High Sensitivity 23 </=54 ng/L White Blood Count 6.1 4.4-10.8 10^3/uL Red Blood Count 3.95 L 4.5-5.90 10^6/uL Hemoglobin 9.7 L 13.5-17.5 g/dL Hematocrit 30.3 L 41.0-53.0 % Mean Corpuscular Volume 76.6 L 80.0-100.0 fL Mean Corpuscular Hemoglobin 24.4 L 28.0-32.0 pg Mean Corpuscular Hemoglobin Concent 31.9 L 32.0-36.0 g/dL Red Cell Distribution Width 15.7 H 11.8-14.3 % Platelet Count 276 140-450 10^3/uL Mean Platelet Volume 7.7 6.9-10.8 fL Neutrophils (%) (Auto) 74.9 37.0-80.0 % Lymphocytes (%) (Auto) 12.5 10.0-50.0 % Monocytes (%) (Auto) 11.6 0.0-12.0 % Eosinophils (%) (Auto) 0.4 0.0-7.0 % Basophils (%) (Auto) 0.6 0.0-2.0 % Neutrophils # (Auto) 4.6 1.6-8.6 10 ^3/uL Lymphocytes # (Auto) 0.8 0.4-5.4 10 ^3/uL Monocytes # (Auto) 0.7 0-1.3 10 ^3/uL Eosinophils # (Auto) 0 0-0.8 10 ^3/uL Basophils # (Auto) 0 0-0.2 10 ^3/uL Nucleated Red Blood Cells 0.0 % Prothrombin Time 10.9 9.3-11.8 sec Prothrombin Time INR 1.03 0.9-1.15 Activated Partial Thromboplast Time 30.8 24.5-34.5 SEC D-Dimer, Quantitative 1.51 H 0.0-0.49 mg/L FEU Sodium Level 134 L 136-145 mmol/L Potassium Level 4.2 3.5-5.1 mmol/L Chloride Level 104 98-107 mmol/L Carbon Dioxide Level 23 20-31 mmol/L Anion Gap 7 5-15 Blood Urea Nitrogen 39 H 9-23 mg/dL Creatinine 1.51 H 0.700-1.30 mg/dL Glomerular Filtration Rate Calc 55 >90 mL/min BUN/Creatinine Ratio 25.8 H 10.0-20.0 Serum Glucose 150 H 74-106 mg/dL Calcium Level 8.4 L 8.7-10.4 mg/dL Total Bilirubin 0.7 0.2-1.0 mg/dL Aspartate Amino Transferase (AST) 34 13-40 U/L Alanine Aminotransferase (ALT) 25 7-40 U/L Alkaline Phosphatase 179 H 46-116 U/L B-Type Natriuretic Peptide 1014.31 0-100 pg/mL Total Protein 5.4 L 5.7-8.2 g/dL Albumin 3.1 L 3.2-4.8 g/dL POC Glucose 143 H 70-106 mg/dl Primary Diagnosis Acute CHF exacerbation THIERRY on CKD versus CKD Elevated D-dimer pulmonary embolism ruled out Bilateral pneumonia Plan Chest x-ray pulmonary congestion possible pneumonia Elevated D-dimer CTA chest showed bilateral pneumonia, no PE Start ceftriaxone 1 g daily, azithromycin 500 mg daily Check blood culture, sputum culture Check lactic acid Check procalcitonin IV Lasix 40 mg b.i.d. Check echo of the heart Cardiology consult Daily weight Strict in and out Fluid restriction Potassium greater than four, magnesium greater than two Nephrology consult for THIERRY on CKD versus CKD Cardiac diet Full code Cardiac diet Heparin for DVT prophylaxis PPI for GI prophylaxis Plan discussed with: Patient Problems List: (1) Pneumonia of both lungs (2) CHF (congestive heart failure) Status: Acute (3) Acute renal injury Date of Service: Jul 22, 2024 Billing Provider: JIMI FALK MD Common Visit Codes: [id number] INP/OBS CARE (HIGH) JIMI FALK MD Jul 22, 2024 18:03
[2024-07-22 19:08] VITALS: BP 178/85; PULSE 98; RESP 18; TEMP 98.7; O2SAT 97
[2024-07-22] MEDS: ERGOCALCIFEROL 50,000 UNIT(1.25MG) CAP PO SCH (19:19)
[2024-07-22] MEDS: AZITHROMYCIN 500MG/ 250ML 250 ML IV ONE (19:20)
[2024-07-22] MEDS ORDERED: ENAL5TAB22 PO (19:47)
[2024-07-22] MEDS ORDERED: GLIP5TAB21 PO (19:47)
[2024-07-22 19:55] LABS: Urine Bacteria None Seen /hpf (None Seen)
[2024-07-22 20:15] LABS: Urine Blood 2+ /uL (Negative); Urine Clarity Clear (Clear); Urine Color Yellow (Yellow); Urine Mucus FEW (None Seen); Urine Protein, UAD 3+ (Negative); Urine Specific Gravity 1.018 (1.001-1.035); Urine Squamous Epithelial Cell FEW /hpf (<5); Urine Urobilinogen Normal (Negative); Urine WBC 2 /HPF (0-3)
[2024-07-22] MEDS: hydrALAZINE HCL 20 MG/ML VL IV PRN (21:11)
[2024-07-22] MEDS: ATORVASTATIN 20 MG TAB PO SCH (21:22)
[2024-07-22] MEDS: ACCU-CHEK COMFORT CURVE STRIP VI SCH (21:34)
[2024-07-22] MEDS: InsuLIN REG 1unit/0.01ml Soln (100units/ml) SC SCH (21:42)
[2024-07-22 22:36] VITALS: BP 196/108; PULSE 118; RESP 18; TEMP 98.4; O2SAT 95
[2024-07-22] MEDS: INSULIN LANTUS (GLARGINE) 1 /0.01ml (100units/ml) SC SCH (22:46)
[2024-07-22 23:08] VITALS: PULSE 114
[2024-07-22] MEDS: METOPROLOL TARTRATE 1MG/1ML-5ML VIAL IV ONE (23:19)
[2024-07-22 23:50] VITALS: BP 169/97; PULSE 98; RESP 18; TEMP 98.4; O2SAT 95
--- NOTE | 2024-07-22 23:59 | DVHINCON2 ---
Date of service: Jul 22, 2024 Referring Physician Keo Reason for Consultation CHF exacerbation History of Present Illness This is a 54 year old male with a PMH of DM, High Lipids, HTN who presents to the ED with complaints of abnormally high blood pressure reading x 1 day. Patient endorses new onset symptoms of bilateral leg swelling that goes from his legs all the way to his scrotum. Patient has an achy burning pain in scrotal area. Patient denies any abnormal penile discharge or discoloration. HGB 9.7, HCT 30.3, D-DIMER 1.51, BUN 39, HISTOPATH TECH 1.51, BNP 1014. Troponin is negative. Chest x-ray shows a new left basilar pneumonia and mild reactive airways disease. CTA chest is negative for PE. There is bilateral pleural effusions left greater than right, patchy consolidation in both lungs left greater than right, mediastinal and hilar lymphadenopathy. Patient was admitted to the hospital. I am asked to consult on this patient. Family History: Diabetes mellitus G8 MOTHER Allergies: Coded Allergies: NO KNOWN ALLERGIES (Unverified , 09/22/23) Home Meds Active Scripts Lancets (Freestyle Lancets) Lancets Mis, ' XX DAILY, #120 1 Refill check blood glucose daily Prov:PARMINDER BURNETTE RESIDENT 04/13/24 Blood Glucose Monitoring Suppl (EASY TOUCH GLUCOSE MONITO) Monitor Kit, AC XX DAILY, #1 1 Refill check blood glucose daily Prov:PARMINDER BURNETTE RESIDENT 04/13/24 Metformin Hydrochloride (Metformin Hcl) 500 Mg Tab, 2 TAB PO BID for 30 Days, #120 TAB 3 Refills Prov:PARMINDER BURNETTE RESIDENT 04/13/24 Insulin Glargine (Lantus) 100 Unit/Ml Inj, 15 UNIT SC HS for 30 Days, #1 INJ 2 Refills Prov:PARMINDER BURNETTE RESIDENT 04/13/24 Ferrous Sulfate (Ferrous Sulfate) 325 Mg Tab, 325 MG PO DAILY for 30 Days, #30 TAB 2 Refills Prov:PARMINDER BURNETTE RESIDENT 10/30/23 Reported Medications Glipizide (Glipizide) 5 Mg Tab, 1 TAB PO BID, #60 TAB 3 Refills 07/22/24 Enalapril Maleate (Enalapril Maleate) 5 Mg Tab, 1 TAB PO DAILY, #30 TAB 5 Refills 07/22/24 Current Medications Current Medications Medications (Trade) Dose Ordered Sig/Kelly Route PRN Reason Start Time Stop Time Status Last Admin Furosemide (Lasix Injection) 40 mg BIDD IV 07/23/24 06:00 Ceftriaxone Sodium 50 ml @ 100 mls/hr DAILY IV 07/23/24 10:00 Azithromycin 250 ml @ 125 mls/hr DAILY IV 07/23/24 10:00 Docusate Sodium (Colace Capsule) 100 mg BIDPRN PRN PO FOR CONSTIPATION 07/22/24 18:00 Acetaminophen (Tylenol Tablet) 650 mg Q6HP PRN PO PAIN SCALE 1-3 OR TEMP>100.4 07/22/24 18:00 Acetaminophen/ Hydrocodone Bitart ([place] 5/325MG Tab) 1 tab Q4HP PRN PO MODERATE PAIN (4-6 PAIN SCALE) 07/22/24 18:00 Hydromorphone HCl (Dilaudid Injection) 0.5 mg Q4HP PRN IV SEVERE PAIN (7-10 PAIN SCALE) 07/22/24 18:00 Ondansetron HCl (Zofran) 4 mg Q4HP PRN IV NAUSEA / VOMITING 07/22/24 18:00 Amlodipine Besylate (Norvasc Tablet) 5 mg DAILY PO 07/23/24 10:00 Atorvastatin Calcium (Lipitor) 20 mg HS PO 07/22/24 22:00 Empaglifozin (Jardiance) 10 mg DAILY PO 07/23/24 10:00 Ergocalciferol (Vitamin D 50,000 Unit) 50,000 unit Q7D PO 07/22/24 18:00 07/22/24 19:19 Ferrous Sulfate 325 mg DAILY PO 07/23/24 10:00 Insulin Glargine (Lantus) 15 units HS SC 07/22/24 22:00 Metoprolol Succinate (Toprol Xl) 50 mg DAILY PO 07/23/24 10:00 Diagnostic Test (Pha) (Accu-Chek Comfort Curve T) 1 strip ACHS 07/22/24 22:00 Insulin Human Regular (InsuLIN R) ACHS SC 07/22/24 22:00 Dextrose 50 ml UD PRN IV Blood Sugar LESS THAN 60 07/22/24 18:00 Hydralazine HCl (Apresoline Injection) 10 mg Q4HP PRN IV SBP>160 07/22/24 19:15 Review of Systems Constitutional: denies: chills, diaphoresis, fatigue, fever, malaise, sweats, weakness, others EENTM: denies: blurred vision, double vision, ear bleeding, ear discharge, ear drainage, ear pain, ear ringing, eye pain, eye redness, hearing loss, mouth pain, mouth swelling, nasal discharge, nose bleeding, nose congestion, nose pain, photophobia, tearing, throat pain, throat swelling, voice changes, others Respiratory: denies: cough, hemoptysis, orthopnea, SOB at rest, shortness of breath, SOB with excertion, stridor, wheezing, others Cardiovascular: denies: chest pain, dizzy spells, diaphoresis, Dyspnea on exertion, edema, irregular heart beat, left arm pain, lightheadedness, palpitations, PND, syncope, others Gastrointestinal: denies: abdomen distended, abdominal pain, blood streaked bowels, constipated, diarrhea, dysphagia, difficulty swallowing, hematemesis, melena, nausea, poor appetite, poor fluid intake, rectal bleeding, rectal pain, vomiting, others Genitourinary: reports: burning, testicle swelling; denies: dysuria, flank pain, frequency, hematuria, incontinence, penile discharge, penile sore, pain, testicle pain, urgency, others Neurological: denies: dizziness, fainting, headache, left sided numbness, left sided weakness, numbness, paresthesia, pre-existing deficit, right sided numbness, right sided weakness, seizure, speech problems, tingling, tremors, weakness, others Musculoskeletal: reports: others (bilateral leg swelling); denies: back pain, gout, joint pain, joint swelling, muscle pain, muscle stiffness, neck pain Integumetry: reports: others (itchyness); denies: bruises, change in color, change in hair/nails, dryness, laceration, lesions, lumps, rash, wounds Allergic/Immunocompromised: denies: Difficulty Healing, Frequent Infections, Hives, Itching, others Hematologic/Lymphatic: denies: anemia, blood clots, easy bleeding, easy bruising, swollen glands, others Endocrine: denies: excessive hunger, excessive sweating, excessive thirst, excessive urination, flushing, intolerance to cold, intolerance to heat, unexplained weight gain, unexplained weight loss, others Psychiatric: denies: anxiety, bipolar disorder, depression, hopeless, panic disorder, schizophrenia, sleepless, suicidal, others All Other Systems: Reviewed and Negative Vital Signs Vital Signs Date Time Temp Pulse Resp B/P (MAP) Pulse Ox O2 Delivery O2 Flow Rate FiO2 07/22/24 19:08 98.7 98 18 178/85 (116) 97 98.7 07/22/24 15:35 Room Air* 0 21 Physical Exam GENERAL: Awake, alert, oriented. LUNGS: Diminished breath sounds. CARDIOVASCULAR: Heart sounds are good. ABDOMEN: Soft. EXT: BLE edema. Labs/Diagnostic Data Labs Test 07/22/24 18:44 07/22/24 15:01 07/22/24 13:56 07/22/24 13:53 Range/Units Lactic Acid Level 0.7 0.4-2.0 mmol/L Troponin I High Sensitivity 23 </=54 ng/L White Blood Count 6.1 4.4-10.8 10^3/uL Red Blood Count 3.95 L 4.5-5.90 10^6/uL Hemoglobin 9.7 L 13.5-17.5 g/dL Hematocrit 30.3 L 41.0-53.0 % Mean Corpuscular Volume 76.6 L 80.0-100.0 fL Mean Corpuscular Hemoglobin 24.4 L 28.0-32.0 pg Mean Corpuscular Hemoglobin Concent 31.9 L 32.0-36.0 g/dL Red Cell Distribution Width 15.7 H 11.8-14.3 % Platelet Count 276 140-450 10^3/uL Mean Platelet Volume 7.7 6.9-10.8 fL Neutrophils (%) (Auto) 74.9 37.0-80.0 % Lymphocytes (%) (Auto) 12.5 10.0-50.0 % Monocytes (%) (Auto) 11.6 0.0-12.0 % Eosinophils (%) (Auto) 0.4 0.0-7.0 % Basophils (%) (Auto) 0.6 0.0-2.0 % Neutrophils # (Auto) 4.6 1.6-8.6 10 ^3/uL Lymphocytes # (Auto) 0.8 0.4-5.4 10 ^3/uL Monocytes # (Auto) 0.7 0-1.3 10 ^3/uL Eosinophils # (Auto) 0 0-0.8 10 ^3/uL Basophils # (Auto) 0 0-0.2 10 ^3/uL Nucleated Red Blood Cells 0.0 % Prothrombin Time 10.9 9.3-11.8 sec Prothrombin Time INR 1.03 0.9-1.15 Activated Partial Thromboplast Time 30.8 24.5-34.5 SEC D-Dimer, Quantitative 1.51 H 0.0-0.49 mg/L FEU Sodium Level 134 L 136-145 mmol/L Potassium Level 4.2 3.5-5.1 mmol/L Chloride Level 104 98-107 mmol/L Carbon Dioxide Level 23 20-31 mmol/L Anion Gap 7 5-15 Blood Urea Nitrogen 39 H 9-23 mg/dL Creatinine 1.51 H 0.700-1.30 mg/dL Glomerular Filtration Rate Calc 55 >90 mL/min BUN/Creatinine Ratio 25.8 H 10.0-20.0 Serum Glucose 150 H 74-106 mg/dL Calcium Level 8.4 L 8.7-10.4 mg/dL Total Bilirubin 0.7 0.2-1.0 mg/dL Aspartate Amino Transferase (AST) 34 13-40 U/L Alanine Aminotransferase (ALT) 25 7-40 U/L Alkaline Phosphatase 179 H 46-116 U/L B-Type Natriuretic Peptide 1014.31 0-100 pg/mL Total Protein 5.4 L 5.7-8.2 g/dL Albumin 3.1 L 3.2-4.8 g/dL Urine Color Yellow Yellow Urine Clarity Clear Clear Urine pH 6.0 5.0-9.0 Urine Specific [place] 1.018 1.001-1.035 Urine Protein 3+ H Negative Urine Ketones Negative Negative Urine Blood 2+ H Negative /uL Urine Nitrite Negative Negative Urine Bilirubin Negative Negative Urine Urobilinogen Normal Negative mg/dL Urine Leukocyte Esterase Negative Negative /uL Urine RBC 2 0 - 3 /hpf Urine Microscopic WBC 2 0-3 /HPF Urine Squamous Epithelial Cells Few <5 /hpf Urine Bacteria None seen None Seen /hpf Urine Mucus Few None Seen Urine Glucose 1+ H Normal mg/dL POC Glucose 143 H 70-106 mg/dl Assessment Acute CHF exacerbation. THIERRY. Bilateral pneumonia. Plan/Recommendation I agree with your ongoing assessment and care of plan. Telemetry reviewed. Dilaudid and Rialto for pain management. Amlodipine. Lipitor, Metoprolol. IV antibiotics as ordered. Diuretics with Lasix. IV Hydralazine for SBP> 160. Additional plan as per the hospital course. A total of 45 minutes was spent reviewing the patient record, examining the patient, making a diagnostic and therapeutic plan, discussing this plan with medical personnel, following up on diagnostic studies and following the patient for clinical stability excluding any and all procedures. At least 50% of this time was spent in direct, [id number] contact. Plan discussed with: Patient AJIT BREWER MD Jul 22, 2024 21:15
[2024-07-23] VITALS (11 sets, daily range): BP systolic 138–184; BP diastolic 69–94; PULSE 77–119; RESP 16–20; TEMP 97.8–100.1; O2SAT 95–99
[2024-07-23] MEDS: ACETAMINOPHEN 325 MG TAB PO PRN (01:57)
[2024-07-23] MEDS: LABETALOL HCL 20 MG/4 ML VL IV PRN (02:47)
[2024-07-23] MEDS: FUROSEMIDE 40 MG/4 ML VIAL IV SCH (05:56)
[2024-07-23 06:47] LABS: Basophils # (auto) 0 10 ^3/uL (0-0.2); Basophils % (auto) 0.6 % (0.0-2.0); Eosinophils # (auto) 0 10 ^3/uL (0-0.8); Eosinophils % (auto) 0.1 % (0.0-7.0); Lymphocytes # (auto) 0.6 10 ^3/uL (0.4-5.4); Monocytes # (auto) 0.6 10 ^3/uL (0-1.3); Monocytes % (auto) 11.3 % (0.0-12.0); Neutrophils # (auto) 3.8 10 ^3/uL (1.6-8.6); Nucleated Red Blood Cells % 0.1 %
[2024-07-23 06:51] LABS: Hematocrit 25.2 % (41.0-53.0); Hemoglobin 8.3 g/dL (13.5-17.5); Lymphocytes % (auto) 11.1 % (10.0-50.0); Mean Corpuscular Hemoglobin 24.7 pg (28.0-32.0); Mean Corpuscular Volume 74.8 fL (80.0-100.0); Neutrophils % (auto) 76.9 % (37.0-80.0); Platelet Count (auto) 250 10^3/uL (140-450); Red Blood Cells 3.37 10^6/uL (4.5-5.90); Red Cell Distribution Width 15.6 % (11.8-14.3)
[2024-07-23 07:01] LABS: Alanine Aminotransferase 19 U/L (7-40); Anion Gap 9 (5-15); Carbon Dioxide 21 mmol/L (20-31); Chloride 106 mmol/L (98-107); Glucose 100 mg/dL (74-106); Magnesium 1.9 mg/dL (1.6-2.6)
[2024-07-23 07:02] LABS: Aspartate Aminotransferase 31 U/L (13-40); BUN/Creatinine Ratio 25.5 (10.0-20.0)
[2024-07-23 07:03] LABS: Bilirubin, Total 0.5 mg/dL (0.2-1.0)
[2024-07-23 07:04] LABS: Albumin 2.8 g/dL (3.2-4.8); Alkaline Phosphatase 150 U/L (46-116); Blood Urea Nitrogen 37 mg/dL (9-23); Calcium 8.2 mg/dL (8.7-10.4); Sodium 136 mmol/L (136-145); Total Protein 5.2 g/dL (5.7-8.2)
[2024-07-23] MEDS: EMPAGLIFLOZIN 10 MG TAB PO SCH (08:49)
[2024-07-23] MEDS: FERROUS SULFATE 325mg EC TAB PO SCH (08:49)
[2024-07-23] MEDS: cefTRIAXone 1GM/50ML D5W 50 ML IV SCH (08:50)
[2024-07-23] MEDS: AZITHROMYCIN 500MG/ 250ML 250 ML IV SCH (08:50)
[2024-07-23] MEDS: amLODIPine BESYLATE 5 MG TAB PO SCH (08:51)
[2024-07-23] MEDS: METOPROLOL SUCCINATE XL 50 MG TAB PO SCH (08:51)
[2024-07-23] MEDS: LOSARTAN POTASSIUM 50 MG TAB PO ONE (10:46)
--- NOTE | 2024-07-23 13:24 | DVHINCON2 ---
Date of service: Jul 23, [address] Crowley Reason for Consultation Acute kidney injury History of Present Illness Mr. Solis is a 54-year-old male with known history of hypertension who presents for further evaluation and management of uncontrolled blood pressure and progressive bilateral lower extremity edema. Initially his serum creatinine was noted to be elevated and that is the reason for this consultation. Initial diagnostic data include a urine sample with notable for 3+ protein on urine dipstick. Past Medical History Hypertension Diabetes Allergies: Coded Allergies: NO KNOWN ALLERGIES (Unverified , 09/22/23) Home Meds Active Scripts Lancets (Freestyle Lancets) Lancets Mis, ' XX DAILY, #120 1 Refill check blood glucose daily Prov:PARMINDER BURNETTE RESIDENT 04/13/24 Blood Glucose Monitoring Suppl (EASY TOUCH GLUCOSE MONITO) Monitor Kit, AC XX DAILY, #1 1 Refill check blood glucose daily Prov:PARMINDER BURNETTE RESIDENT 04/13/24 Metformin Hydrochloride (Metformin Hcl) 500 Mg Tab, 2 TAB PO BID for 30 Days, #120 TAB 3 Refills Prov:PARMINDER BURNETTE RESIDENT 04/13/24 Insulin Glargine (Lantus) 100 Unit/Ml Inj, 15 UNIT SC HS for 30 Days, #1 INJ 2 Refills Prov:PARMINDER BURNETTE RESIDENT 04/13/24 Ferrous Sulfate (Ferrous Sulfate) 325 Mg Tab, 325 MG PO DAILY for 30 Days, #30 TAB 2 Refills Prov:PARMINDER BURNETTE RESIDENT 10/30/23 Reported Medications Glipizide (Glipizide) 5 Mg Tab, 1 TAB PO BID, #60 TAB 3 Refills 07/22/24 Enalapril Maleate (Enalapril Maleate) 5 Mg Tab, 1 TAB PO DAILY, #30 TAB 5 Refills 07/22/24 Current Medications Current Medications Medications (Trade) Dose Ordered Sig/Kelly Route PRN Reason Start Time Stop Time Status Last Admin Furosemide (Lasix Injection) 40 mg BIDD IV 07/23/24 06:00 07/23/24 05:56 Ceftriaxone Sodium 50 ml @ 100 mls/hr DAILY IV 07/23/24 10:00 07/23/24 08:50 Azithromycin 250 ml @ 125 mls/hr DAILY IV 07/23/24 10:00 07/23/24 08:50 Docusate Sodium (Colace Capsule) 100 mg BIDPRN PRN PO FOR CONSTIPATION 07/22/24 18:00 07/23/24 09:49 DC Acetaminophen (Tylenol Tablet) 650 mg Q6HP PRN PO PAIN SCALE 1-3 OR TEMP>100.4 07/22/24 18:00 07/23/24 01:57 Acetaminophen/ Hydrocodone Bitart (Sublimity 5/325MG Tab) 1 tab Q4HP PRN PO MODERATE PAIN (4-6 PAIN SCALE) 07/22/24 18:00 07/23/24 10:24 DC Hydromorphone HCl (Dilaudid Injection) 0.5 mg Q4HP PRN IV SEVERE PAIN (7-10 PAIN SCALE) 07/22/24 18:00 07/23/24 10:24 DC Ondansetron HCl (Zofran) 4 mg Q4HP PRN IV NAUSEA / VOMITING 07/22/24 18:00 Amlodipine Besylate (Norvasc Tablet) 5 mg DAILY PO 07/23/24 10:00 07/23/24 10:24 DC Atorvastatin Calcium (Lipitor) 20 mg HS PO 07/22/24 22:00 07/22/24 21:22 Empaglifozin (Jardiance) 10 mg DAILY PO 07/23/24 10:00 07/23/24 08:49 Ergocalciferol (Vitamin D 50,000 Unit) 50,000 unit Q7D PO 07/22/24 18:00 07/22/24 19:19 Ferrous Sulfate 325 mg DAILY PO 07/23/24 10:00 07/23/24 08:49 Insulin Glargine (Lantus) 15 units HS SC 07/22/24 22:00 07/22/24 22:46 Metoprolol Succinate (Toprol Xl) 50 mg DAILY PO 07/23/24 10:00 07/23/24 08:51 Diagnostic Test (Pha) (Accu-Chek Comfort Curve T) 1 strip ACHS 07/22/24 22:00 07/23/24 11:34 Insulin Human Regular (InsuLIN R) ACHS SC 07/22/24 22:00 07/23/24 11:34 Dextrose 50 ml UD PRN IV Blood Sugar LESS THAN 60 07/22/24 18:00 Hydralazine HCl (Apresoline Injection) 10 mg Q4HP PRN IV SBP>160 07/22/24 19:15 07/23/24 09:49 DC 07/23/24 01:20 Labetalol HCl (Labetalol HCl) 10 mg Q2HPRN PRN IV SBP>150 07/23/24 02:30 07/23/24 10:24 DC 07/23/24 02:47 Losartan Potassium (Cozaar Tablet) 50 mg DAILY PO 07/24/24 10:00 Family History: Diabetes mellitus G8 MOTHER Review of Systems She denies recent NSAID use, intravenous contrast studies, gross hematuria, skin rash or fever H&P Exam Vital Signs/I&O Vital Sign Date Time Temp Pulse Resp B/P (MAP) Pulse Ox O2 Delivery O2 Flow Rate FiO2 07/23/24 10:46 159/79 07/23/24 09:00 97.8 89 18 97 97.8 07/23/24 08:20 Room Air* 0 21 Intake and Output 07/22/24 07/23/24 19:00 07:00 Intake Total 0 ml Balance 0 ml Intake Oral 0 ml # Voids 2 # Bowel Movements 2 Physical Exam Gen: nad heent: nc/at, mmm lungs: cta anteriorly cvs: no rub abd: soft, bowel sounds audible ext:+ edema skin: no rash neuro: alert and oriented Labs/Diagnostic Data Labs/Diagnostic Data Laboratory Tests Test 07/23/24 11:23 07/23/24 06:00 07/23/24 05:50 07/22/24 22:43 Range/Units POC Glucose 192 H 106 141 H 70-106 mg/dl White Blood Count 5.0 4.4-10.8 10^3/uL Red Blood Count 3.37 L 4.5-5.90 10^6/uL Hemoglobin 8.3 L 13.5-17.5 g/dL Hematocrit 25.2 #L 41.0-53.0 % Mean Corpuscular Volume 74.8 L 80.0-100.0 fL Mean Corpuscular Hemoglobin 24.7 L 28.0-32.0 pg Mean Corpuscular Hemoglobin Concent 33.0 32.0-36.0 g/dL Red Cell Distribution Width 15.6 H 11.8-14.3 % Platelet Count 250 140-450 10^3/uL Mean Platelet Volume 7.8 6.9-10.8 fL Neutrophils (%) (Auto) 76.9 37.0-80.0 % Lymphocytes (%) (Auto) 11.1 10.0-50.0 % Monocytes (%) (Auto) 11.3 0.0-12.0 % Eosinophils (%) (Auto) 0.1 0.0-7.0 % Basophils (%) (Auto) 0.6 0.0-2.0 % Neutrophils # (Auto) 3.8 1.6-8.6 10 ^3/uL Lymphocytes # (Auto) 0.6 0.4-5.4 10 ^3/uL Monocytes # (Auto) 0.6 0-1.3 10 ^3/uL Eosinophils # (Auto) 0 0-0.8 10 ^3/uL Basophils # (Auto) 0 0-0.2 10 ^3/uL Nucleated Red Blood Cells 0.1 % Sodium Level 136 136-145 mmol/L Potassium Level 4.0 3.5-5.1 mmol/L Chloride Level 106 98-107 mmol/L Carbon Dioxide Level 21 20-31 mmol/L Anion Gap 9 5-15 Blood Urea Nitrogen 37 H 9-23 mg/dL Creatinine 1.45 H 0.700-1.30 mg/dL Glomerular Filtration Rate Calc 58 >90 mL/min BUN/Creatinine Ratio 25.5 H 10.0-20.0 Serum Glucose 100 74-106 mg/dL Hemoglobin A1c 7.4 H <5.7 % A1C Calcium Level 8.2 L 8.7-10.4 mg/dL Magnesium Level 1.9 1.6-2.6 mg/dL Ferritin 48.7 22-322 ng/mL Total Bilirubin 0.5 0.2-1.0 mg/dL Aspartate Amino Transferase (AST) 31 13-40 U/L Alanine Aminotransferase (ALT) 19 7-40 U/L Alkaline Phosphatase 150 H 46-116 U/L Total Protein 5.2 L 5.7-8.2 g/dL Albumin 2.8 L 3.2-4.8 g/dL Test 07/22/24 21:31 07/22/24 20:59 07/22/24 18:44 07/22/24 16:19 Range/Units POC Glucose 259 H 70-106 mg/dl Troponin I High Sensitivity 20 23 23 </=54 ng/L Lactic Acid Level 0.7 0.4-2.0 mmol/L Test 07/22/24 15:01 07/22/24 13:56 07/22/24 13:53 Range/Units White Blood Count 6.1 4.4-10.8 10^3/uL Red Blood Count 3.95 L 4.5-5.90 10^6/uL Hemoglobin 9.7 L 13.5-17.5 g/dL Hematocrit 30.3 L 41.0-53.0 % Mean Corpuscular Volume 76.6 L 80.0-100.0 fL Mean Corpuscular Hemoglobin 24.4 L 28.0-32.0 pg Mean Corpuscular Hemoglobin Concent 31.9 L 32.0-36.0 g/dL Red Cell Distribution Width 15.7 H 11.8-14.3 % Platelet Count 276 140-450 10^3/uL Mean Platelet Volume 7.7 6.9-10.8 fL Neutrophils (%) (Auto) 74.9 37.0-80.0 % Lymphocytes (%) (Auto) 12.5 10.0-50.0 % Monocytes (%) (Auto) 11.6 0.0-12.0 % Eosinophils (%) (Auto) 0.4 0.0-7.0 % Basophils (%) (Auto) 0.6 0.0-2.0 % Neutrophils # (Auto) 4.6 1.6-8.6 10 ^3/uL Lymphocytes # (Auto) 0.8 0.4-5.4 10 ^3/uL Monocytes # (Auto) 0.7 0-1.3 10 ^3/uL Eosinophils # (Auto) 0 0-0.8 10 ^3/uL Basophils # (Auto) 0 0-0.2 10 ^3/uL Nucleated Red Blood Cells 0.0 % Prothrombin Time 10.9 9.3-11.8 sec Prothrombin Time INR 1.03 0.9-1.15 Activated Partial Thromboplast Time 30.8 24.5-34.5 SEC D-Dimer, Quantitative 1.51 H 0.0-0.49 mg/L FEU Sodium Level 134 L 136-145 mmol/L Potassium Level 4.2 3.5-5.1 mmol/L Chloride Level 104 98-107 mmol/L Carbon Dioxide Level 23 20-31 mmol/L Anion Gap 7 5-15 Blood Urea Nitrogen 39 H 9-23 mg/dL Creatinine 1.51 H 0.700-1.30 mg/dL Glomerular Filtration Rate Calc 55 >90 mL/min BUN/Creatinine Ratio 25.8 H 10.0-20.0 Serum Glucose 150 H 74-106 mg/dL Calcium Level 8.4 L 8.7-10.4 mg/dL Total Bilirubin 0.7 0.2-1.0 mg/dL Aspartate Amino Transferase (AST) 34 13-40 U/L Alanine Aminotransferase (ALT) 25 7-40 U/L Alkaline Phosphatase 179 H 46-116 U/L Troponin I High Sensitivity 23 </=54 ng/L B-Type Natriuretic Peptide 1014.31 0-100 pg/mL Total Protein 5.4 L 5.7-8.2 g/dL Albumin 3.1 L 3.2-4.8 g/dL Urine Color Yellow Yellow Urine Clarity Clear Clear Urine pH 6.0 5.0-9.0 Urine Specific [place] 1.018 1.001-1.035 Urine Protein 3+ H Negative Urine Ketones Negative Negative Urine Blood 2+ H Negative /uL Urine Nitrite Negative Negative Urine Bilirubin Negative Negative Urine Urobilinogen Normal Negative mg/dL Urine Leukocyte Esterase Negative Negative /uL Urine RBC 2 0 - 3 /hpf Urine Microscopic WBC 2 0-3 /HPF Urine Squamous Epithelial Cells Few <5 /hpf Urine Bacteria None seen None Seen /hpf Urine Mucus Few None Seen Urine Glucose 1+ H Normal mg/dL POC Glucose 143 H 70-106 mg/dl Assessment IMP: 1) Hemodynamically mediated THIERRY/VMN - improving 2) CKD IIIa / II - baseline serum creatinine unknown to the stridor 3) proteinuria, suspect related to diabetic kidney disease 4) hypertension 5) dyslipidemia REC: - we will quantify proteinuria - consideration for RAAS inhibition once taylor of serum creatinine established - general recommendations to avoid intravenous contrast studies if able - we will continue to follow closely with you, loop diuretic as needed to achieve desired ECF volume. Plan discussed with: Patient REAL HERNANDEZ MD Jul 23, 2024 13:24
--- NOTE | 2024-07-23 13:46 | ECG ---
[facility] Test Date: 2024-07-22 Test Time: 14:08:54 Pat Name: XENIA AGUIRRE Department: ER Room: 0250T B Gender: M Mail Processing Clerk: DANIELLE : 1970 Requested By: KALYN MIRELES Order Number: [id number] Reading MD: Umang Chandra Measurements Intervals [place] Rate: 94 P: 74 VA: 159 QRS: 52 QRSD: 94 T: 95 QT: 364 QTc: 456 Interpretive Statements Sinus rhythm Consider left ventricular hypertrophy Electronically Signed On 07-24-2024 19:11:31 PDT by Umang Chandra Please click the below link to view image of tracing.
--- NOTE | 2024-07-23 13:57 | DVHPNRES ---
Progress Note Date Seen: Jul 23, 2024 Resident Creating Document: JHHermiloJTANYA HagenNOELLEBOB RESIDENT Medical Necessity Reason Pt with a Central, PICC or Fol: No Subjective Review of Systems Patient is a 54-year-old male past medical history of type 2 diabetes mellitus, hypertension, hyperlipidemia came to the ER with a chief complaint of worsening shortness of breath for 3 weeks. Patient reports that since the last 3 weeks he has been having worsening shortness of breath with difficulty performing tasks of daily life, functional class 3. Patient also reported increasing bilateral pedal edema which started the same time around 3 weeks ago and now the edema is up to the upper tibia. Patient denied having chest pain any time in the last 3 weeks, no dizziness, palpitations or loss of consciousness. Patient reports he also had cough in the last 3 weeks with the associated whitish to yellow sputum. Patient denied having fever but reported chills. Past medical history: As per HPI Past surgical history: None Social history: Patient was with family and denies smoking, alcohol, drug use Medications: Enalapril 5 mg b.i.d., metformin 1000 mg b.i.d., glipizide 10 mg q.d. Review of systems Patient reports minimal shortness of breath but is certainly not on oxygen. Denies chest pain, palpitations, dizziness, any other acute complaints Objective vital signs Vital Sign Date Time Temp Pulse Resp B/P (MAP) Pulse Ox O2 Delivery O2 Flow Rate FiO2 07/23/24 10:46 159/79 07/23/24 09:00 97.8 89 18 97 97.8 07/23/24 08:20 Room Air* 0 21 Total Intake and Output 07/22/24 07/22/24 07/23/24 15:00 23:00 07:00 Intake Total 0 ml Balance 0 ml medications Current Medications Medications Dose Ordered Sig/Kelly Route Start Time Stop Time Status Last Admin Dose Admin Furosemide 40 mg BIDD IV 07/23/24 06:00 07/23/24 05:56 40 MG Ceftriaxone Sodium 50 ml @ 100 mls/hr DAILY IV 07/23/24 10:00 07/23/24 08:50 100 MLS/HR Azithromycin 250 ml @ 125 mls/hr DAILY IV 07/23/24 10:00 07/23/24 08:50 125 MLS/HR Acetaminophen 650 mg Q6HP PRN PO 07/22/24 18:00 07/23/24 01:57 650 MG Ondansetron HCl 4 mg Q4HP PRN IV 07/22/24 18:00 Atorvastatin Calcium 20 mg HS PO 07/22/24 22:00 07/22/24 21:22 20 MG Empaglifozin 10 mg DAILY PO 07/23/24 10:00 07/23/24 08:49 10 MG Ergocalciferol 50,000 unit Q7D PO 07/22/24 18:00 07/22/24 19:19 50,000 UNIT Ferrous Sulfate 325 mg DAILY PO 07/23/24 10:00 07/23/24 08:49 325 MG Insulin Glargine 15 units HS SC 07/22/24 22:00 07/22/24 22:46 15 UNITS Metoprolol Succinate 50 mg DAILY PO 07/23/24 10:00 07/23/24 08:51 50 MG Diagnostic Test (Pha) 1 strip ACHS 07/22/24 22:00 07/23/24 11:34 1 STRIP Insulin Human Regular ACHS SC 07/22/24 22:00 07/23/24 11:34 3 UNITS Dextrose 50 ml UD PRN IV 07/22/24 18:00 Losartan Potassium 50 mg DAILY PO 07/24/24 10:00 Examination Constitutional: Patient is alert and oriented to time, place and person and does not appear to be in any acute distress Gen - no pallor, no icterus, no cyanosis, no clubbing, no LAD, 3+ pitting edema up to the bilateral knees Skin - Patients skin is warm and dry. HEENT - normocephalic, atraumatic, moist mucous membranes. Neck - full ROM, no LAD, JVD elevated to the middle part of the SCM Pulmonary - B/L equal air entry with bibasilar crackles, no wheezing cardiovascular - variable S1,S2 heard. no murmurs heard. peripheral pulses normal radial 2+, pedal 2+. GI - soft abdomen without tenderness to palpation. no hepatospleenomegaly. Bowel sounds normoactive Neurological - Bilateral upper extremity strength 5/5, bilateral lower extremity strength 5/5, no facial droop, normal speech, no tremor, no sensory deficiets. laboratory and microbiology Laboratory Tests 07/23/24 06:00 Test 07/23/24 06:00 Range/Units Serum Glucose 100 74-106 mg/dL Problem List/Assessment/Plan Problem List/Assessment/Plan Assessment # Acute exacerbation of suspected heart failure with preserved ejection fraction # hypertensive heart disease with diastolic heart failure # community-acquired pneumonia likely due to Gram-positive/negative/atypical bacteria # uncontrolled type 2 diabetes mellitus with hyperglycemia # THIERRY on CKD likely hemodynamically mediated due to VMN -Chest x-ray shows left lower lobe opacity, increased pulmonary vascular congestion -CTA chest shows 1. No pulmonary embolism. 2. Bilateral pleural effusions left greater than right. Patchy consolidation in both lungs left greater than right. Mediastinal and hilar lymphadenopathy. Suspect infectious/inflammatory process. Congestive failure or fluid overload could have a similar appearance. -BNP > 1000 Plan - diuresis with Lasix 40 mg b.i.d. IV with a goal of negative 2L fluid balance over 24 hours - at home on enalapril, switch to losartan 50 mg - started on metoprolol succinate 50 mg daily - on Jardiance 10 mg - on ceftriaxone and azithromycin IV - insulin Lantus 15 units HS and mild insulin sliding - echocardiogram pending - nephrology consulted who recommended continuing the same treatment Goals discussed with the patient for over 25 minutes. Full code Plan discussed with Dr. Doan Plan discussed with: Patient My Orders My Orders Orders - IZZY CORMIER Procedure Category Date Status Time Losartan Tablet PHA 07/24/24 In Process (Cozaar Tablet) 10:00 Strict I & O LEATHA 07/23/24 In Process 10:31 Echo 2d Mode Cardiac US 07/23/24 Verified DOP 13:50 Date of Service: Jul 23, 2024 Billing Provider: MARNI DAON MD Common Visit Codes: [id number] INP/OBS CARE(HIGH) IZZY CORMIER RESIDENT Jul 23, 2024 13:57 MARNI DOAN MD Jul 26, 2024 15:55
--- NOTE | 2024-07-23 22:20 | DVHPN2 ---
Progress Note - Dictate Date Seen: Jul 23, 2024 Medical Necessity Reason Pt with a Central, PICC or Fol: No Subjective Patient was seen and evaluated in follow up. Patient is complaining of SOB and scrotal discomfort. BP is improving. HGB 8.3, HCT 25.2, BUN 37, RESPIRATORY CARE INSTRUCTOR 1.45, CA 8.2. Telemetry reviewed. vital signs Vital Sign Date Time Temp Pulse Resp B/P (MAP) Pulse Ox O2 Delivery O2 Flow Rate FiO2 07/23/24 10:46 159/79 07/23/24 09:00 97.8 89 18 97 97.8 07/23/24 08:20 Room Air* 0 21 Total Intake and Output 07/22/24 07/22/24 07/23/24 15:00 23:00 07:00 Intake Total 0 ml Balance 0 ml medications Current Medications Medications Dose Ordered Sig/Kelly Route Start Time Stop Time Status Last Admin Dose Admin Furosemide 40 mg BIDD IV 07/23/24 06:00 07/23/24 05:56 40 MG Ceftriaxone Sodium 50 ml @ 100 mls/hr DAILY IV 07/23/24 10:00 07/23/24 08:50 100 MLS/HR Azithromycin 250 ml @ 125 mls/hr DAILY IV 07/23/24 10:00 07/23/24 08:50 125 MLS/HR Acetaminophen 650 mg Q6HP PRN PO 07/22/24 18:00 07/23/24 01:57 650 MG Ondansetron HCl 4 mg Q4HP PRN IV 07/22/24 18:00 Atorvastatin Calcium 20 mg HS PO 07/22/24 22:00 07/22/24 21:22 20 MG Empaglifozin 10 mg DAILY PO 07/23/24 10:00 07/23/24 08:49 10 MG Ergocalciferol 50,000 unit Q7D PO 07/22/24 18:00 07/22/24 19:19 50,000 UNIT Ferrous Sulfate 325 mg DAILY PO 07/23/24 10:00 07/23/24 08:49 325 MG Insulin Glargine 15 units HS SC 07/22/24 22:00 07/22/24 22:46 15 UNITS Metoprolol Succinate 50 mg DAILY PO 07/23/24 10:00 07/23/24 08:51 50 MG Diagnostic Test (Pha) 1 strip ACHS 07/22/24 22:00 07/23/24 11:34 1 STRIP Insulin Human Regular ACHS SC 07/22/24 22:00 07/23/24 11:34 3 UNITS Dextrose 50 ml UD PRN IV 07/22/24 18:00 Losartan Potassium 50 mg DAILY PO 07/24/24 10:00 objective GENERAL: Awake, alert, oriented. LUNGS: Diminished breath sounds. CARDIOVASCULAR: Heart sounds are good. ABDOMEN: Soft. EXT: BLE edema. laboratory and microbiology Laboratory Tests 07/23/24 06:00 Test 07/23/24 06:00 Range/Units Serum Glucose 100 74-106 mg/dL Problem List Acute CHF exacerbation. THIERRY. Bilateral pneumonia. Assessment/Plan Continued all current supportive medical care. Dilaudid and [place] for pain management. Amlodipine. Lipitor, Metoprolol. IV antibiotics as ordered. Diuretics with Lasix. IV Hydralazine for SBP> 160. Additional plan as per the hospital course. Plan discussed with: Patient AJIT BREWER MD Jul 23, 2024 11:41
[2024-07-23 23:56] LABS: Protein, Urine 115.1 mg/dL (1-14)
[2024-07-23 23:57] LABS: Creatinine, Urine 22.99 mg/dL (30.0-125.0)
[2024-07-24] VITALS (8 sets, daily range): BP systolic 120–178; BP diastolic 58–97; PULSE 72–104; RESP 17–22; TEMP 97.8–98.6; O2SAT 95–100
[2024-07-24 07:41] LABS: Basophils # (auto) 0 10 ^3/uL (0-0.2); Basophils % (auto) 0.6 % (0.0-2.0); Eosinophils # (auto) 0 10 ^3/uL (0-0.8); Eosinophils % (auto) 0.4 % (0.0-7.0); Hematocrit 29.7 % (41.0-53.0); Hemoglobin 9.7 g/dL (13.5-17.5); Lymphocytes # (auto) 1.2 10 ^3/uL (0.4-5.4); Mean Corpuscular Hemoglobin 24.6 pg (28.0-32.0); Mean Corpuscular Hgb Conc. 32.7 g/dL (32.0-36.0); Mean Corpuscular Volume 75.2 fL (80.0-100.0); Monocytes # (auto) 0.7 10 ^3/uL (0-1.3); Monocytes % (auto) 12.5 % (0.0-12.0); Neutrophils # (auto) 3.4 10 ^3/uL (1.6-8.6); Neutrophils % (auto) 64.5 % (37.0-80.0); Nucleated Red Blood Cells % 0.1 %; Platelet Count (auto) 326 10^3/uL (140-450); Red Blood Cells 3.94 10^6/uL (4.5-5.90); Red Cell Distribution Width 15.6 % (11.8-14.3); White Blood Cell 5.3 10^3/uL (4.4-10.8)
[2024-07-24 08:04] LABS: Alanine Aminotransferase 26 U/L (7-40); Albumin 3.3 g/dL (3.2-4.8); Anion Gap 11 (5-15); Aspartate Aminotransferase 40 U/L (13-40); BUN/Creatinine Ratio 23.6 (10.0-20.0); Carbon Dioxide 22 mmol/L (20-31); Chloride 102 mmol/L (98-107); Glucose 95 mg/dL (74-106); Magnesium 1.8 mg/dL (1.6-2.6); Phosphorus 4.9 mg/dL (2.4-5.1)
[2024-07-24 08:05] LABS: Bilirubin, Total 0.4 mg/dL (0.2-1.0)
[2024-07-24 08:11] LABS: Alkaline Phosphatase 171 U/L (46-116); Blood Urea Nitrogen 39 mg/dL (9-23); Calcium 8.5 mg/dL (8.7-10.4); Sodium 135 mmol/L (136-145)
[2024-07-24] MEDS ORDERED: LOSARTAN POTASSIUM 50 MG TAB PO SCH (10:00)
[2024-07-24] MEDS: CARVEDILOL 12.5 MG TAB PO ONE (10:56)
[2024-07-24] MEDS: hydrALAZINE HCL 20 MG/ML VL IV ONE (11:19)
[2024-07-24] MEDS: ONDANSETRON HCL 4 MG/2 ML VIAL IV PRN (13:11)
--- NOTE | 2024-07-24 16:59 | DVHPNRES ---
Progress Note Date Seen: Jul 24, 2024 Resident Creating Document: MARCELA RAMSEY RESIDENT Medical Necessity Reason Pt with a Central, PICC or Fol: No Subjective Review of Systems Patient examined at bedside, he reports feeling well overall, he denies fever, cough, nausea diarrhea. He was complaining of chronic anal pain, he was recommended to follow up with hygiene coordinator in the outpatient. Urine output after Lasix to day was negative balance 2900. Metoprolol was changed by carvedilol to rate controlled blood pressure 1st dose will be given this night. Patient reports: No new complaints Changes from previous H/P or p: No Changes Objective vital signs Vital Sign Date Time Temp Pulse Resp B/P (MAP) Pulse Ox O2 Delivery O2 Flow Rate FiO2 07/24/24 13:00 97.8 72 20 120/58 (78) 97 97.8 07/24/24 08:00 Room Air* 0 21 Total Intake and Output 07/23/24 07/23/24 07/24/24 15:00 23:00 07:00 Intake Total 500 ml 740 ml 1400 ml Output Total 602 ml Balance 500 ml 740 ml 798 ml medications Current Medications Medications Dose Ordered Sig/Kelly Route Start Time Stop Time Status Last Admin Dose Admin Furosemide 40 mg BIDD IV 07/23/24 06:00 07/24/24 06:36 40 MG Ceftriaxone Sodium 50 ml @ 100 mls/hr DAILY IV 07/23/24 10:00 07/24/24 09:28 100 MLS/HR Azithromycin 250 ml @ 125 mls/hr DAILY IV 07/23/24 10:00 07/24/24 10:00 125 MLS/HR Acetaminophen 650 mg Q6HP PRN PO 07/22/24 18:00 07/24/24 13:11 650 MG Ondansetron HCl 4 mg Q4HP PRN IV 07/22/24 18:00 07/24/24 13:11 4 MG Atorvastatin Calcium 20 mg HS PO 07/22/24 22:00 07/23/24 23:00 20 MG Empaglifozin 10 mg DAILY PO 07/23/24 10:00 07/24/24 09:31 10 MG Ergocalciferol 50,000 unit Q7D PO 07/22/24 18:00 07/22/24 19:19 50,000 UNIT Ferrous Sulfate 325 mg DAILY PO 07/23/24 10:00 07/24/24 09:31 325 MG Insulin Glargine 15 units HS SC 07/22/24 22:00 07/23/24 23:02 15 UNITS Diagnostic Test (Pha) 1 strip ACHS 07/22/24 22:00 07/24/24 16:37 1 STRIP Insulin Human Regular ACHS SC 07/22/24 22:00 07/24/24 11:01 2 UNITS Dextrose 50 ml UD PRN IV 07/22/24 18:00 Carvedilol 12.5 mg Q12HR PO 07/24/24 22:00 Examination: GENERAL:Normal, HEENT:Normal, NECK:Normal, LUNGS:Normal, CVS:Normal, ABDOMEN:Normal, MSK:Normal, SKIN:Normal, NEURO:Normal, :Normal laboratory and microbiology Laboratory Tests 07/24/24 07:08 Test 07/24/24 07:08 Range/Units Serum Glucose 95 74-106 mg/dL Microbiology Date/Time Source Procedure Growth Status 07/22/24 18:44 Blood Blood Culture - Preliminary NO GROWTH AFTER 24 HOURS OF INCUBATION. Resulted Problem List/Assessment/Plan Problem List/Assessment/Plan # Acute exacerbation of suspected heart failure with preserved ejection fraction # hypertensive heart disease with diastolic heart failure # community-acquired pneumonia likely due to Gram-positive/negative/atypical bacteria # uncontrolled type 2 diabetes mellitus with hyperglycemia # THIERRY on CKD likely hemodynamically mediated due to VMN # fecal incontinence # chronic anal pain -Chest x-ray shows left lower lobe opacity, increased pulmonary vascular congestion -CTA chest shows 1. No pulmonary embolism. 2. Bilateral pleural effusions left greater than right. Patchy consolidation in both lungs left greater than right. Mediastinal and hilar lymphadenopathy. Suspect infectious/inflammatory process. Congestive failure or fluid overload could have a similar appearance. -BNP > 1000 Plan - diuresis with Lasix 40 mg b.i.d. IV with a goal of negative 2L fluid balance over 24 hours - carvedilol 12.5 b.i.d. - on Jardiance 10 mg - on ceftriaxone and azithromycin IV - insulin Lantus 15 units HS and mild insulin sliding - echocardiogram pending - nephrology consulted who recommended continuing the same treatment Case discussed with Dr. Victoria Goals of care discussed with the patient for 21 minutes Code status: Full code Plan discussed with: Patient My Orders My Orders Orders - MARCELA RAMSEY Procedure Category Date Status Time Carvedilol Tablet PHA 07/24/24 In Process (Coreg Tablet) 22:00 Date of Service: Jul 24, 2024 Billing Provider: YANA VICTORIA MD Common Visit Codes: [id number] INP/OBS CARE(HIGH) MOO LazaroMARCELA RESIDENT Jul 24, 2024 16:59 YANA VICTORIA MD Jul 26, 2024 14:08
[2024-07-24] MEDS: CARVEDILOL 12.5 MG TAB PO SCH (22:15)
--- NOTE | 2024-07-24 22:20 | DVHPN2 ---
Progress Note - Dictate Date Seen: Jul 24, 2024 Medical Necessity Reason Pt with a Central, PICC or Fol: No Subjective Patient was seen and evaluated in follow up. Patient is complaining of chronic anal pain. Urine output after Lasix to day was negative balance 2900. Metoprolol was changed by carvedilol for rate controlled blood pressure. 1st dose will be tonight. HGB 9.7, HCT 29.7, BUN 39, SUPERVISOR CAPACITOR PROCESSING 1.65, CA 8.5. Telemetry reviewed. vital signs Vital Sign Date Time Temp Pulse Resp B/P (MAP) Pulse Ox O2 Delivery O2 Flow Rate FiO2 07/24/24 17:09 145/76 07/24/24 17:00 97.9 81 20 95 97.9 07/24/24 08:00 Room Air* 0 21 Total Intake and Output 07/23/24 07/23/24 07/24/24 15:00 23:00 07:00 Intake Total 500 ml 740 ml 1400 ml Output Total 602 ml Balance 500 ml 740 ml 798 ml medications Current Medications Medications Dose Ordered Sig/Kelly Route Start Time Stop Time Status Last Admin Dose Admin Furosemide 40 mg BIDD IV 07/23/24 06:00 07/24/24 17:09 40 MG Ceftriaxone Sodium 50 ml @ 100 mls/hr DAILY IV 07/23/24 10:00 07/24/24 09:28 100 MLS/HR Azithromycin 250 ml @ 125 mls/hr DAILY IV 07/23/24 10:00 07/24/24 10:00 125 MLS/HR Acetaminophen 650 mg Q6HP PRN PO 07/22/24 18:00 07/24/24 13:11 650 MG Ondansetron HCl 4 mg Q4HP PRN IV 07/22/24 18:00 07/24/24 13:11 4 MG Atorvastatin Calcium 20 mg HS PO 07/22/24 22:00 07/23/24 23:00 20 MG Empaglifozin 10 mg DAILY PO 07/23/24 10:00 07/24/24 09:31 10 MG Ergocalciferol 50,000 unit Q7D PO 07/22/24 18:00 07/22/24 19:19 50,000 UNIT Ferrous Sulfate 325 mg DAILY PO 07/23/24 10:00 07/24/24 09:31 325 MG Insulin Glargine 15 units HS SC 07/22/24 22:00 07/23/24 23:02 15 UNITS Diagnostic Test (Pha) 1 strip ACHS 07/22/24 22:00 07/24/24 16:37 1 STRIP Insulin Human Regular ACHS SC 07/22/24 22:00 07/24/24 17:13 2 UNITS Dextrose 50 ml UD PRN IV 07/22/24 18:00 Carvedilol 12.5 mg Q12HR PO 07/24/24 22:00 objective GENERAL: Awake, alert, oriented. LUNGS: Diminished breath sounds. CARDIOVASCULAR: Heart sounds are good. ABDOMEN: Soft. EXT: BLE edema. laboratory and microbiology Laboratory Tests 07/24/24 07:08 Test 07/24/24 07:08 Range/Units Serum Glucose 95 74-106 mg/dL Problem List Acute CHF exacerbation. THIERRY. Bilateral pneumonia. Assessment/Plan Continued all current supportive medical care. Dilaudid and [place] for pain management. Amlodipine, Coreg. Lipitor. IV antibiotics as ordered. Diuretics with Lasix. IV Hydralazine for SBP> 160. Additional plan as per the hospital course. Plan discussed with: Patient AJIT BREWER MD Jul 24, 2024 20:10
[2024-07-25] VITALS (9 sets, daily range): BP systolic 111–162; BP diastolic 52–84; PULSE 65–81; RESP 17–20; TEMP 97–98.6; O2SAT 95–99
--- NOTE | 2024-07-25 01:06 | DVHSR ---
APPROVED REPORT EXAM: Two-dimensional and M-mode echocardiogram with Doppler and color Doppler. Blood Pressure: 159/78 mmHg INDICATION SOB, HF exacerbation RISK FACTORS Height: 74, Weight: 198 DIMENSIONS LVDd5.4 (3.8-5.7cm)LA (2D)4.9 (1.9-4.0cm)Aortic Root3.0 (2.0-3.7cm) LVDs4.6 (2.5-4.0cm)LA (MM) (1.9-4.0cm)Aortic Cusp Exc1.8 (1.5-2.0cm) EF (%) 30.0 (55-70%)Rt. Atrium4.5 (1.9-4.0cm)Asc. Aorta cm IVSd1.5 (0.7-1.1cm)RV (D) (1.8-2.4cm) PWd1.5 (0.7-1.1cm) Mitral Valve MitralMitral Stenosis E wave1.02m/sMV Mean GR.mmHg A wave0.51m/sMV Peak GR.57mmHg E/A ratio2.02D MVAcm2 DECEL [id number] 1/2 Timems Aortic Valve Aortic ValveAortic Stenosis V10.71m/Joy Mean GR.3mmHg V21.11m/Joy Peak GR.5mmHg LVOT Diameter2.3 (1.8-2.4cm)Doppler AVA2.66cm2 Pulmonic Valve V20.71m/s Tricuspid Valve TR Velocity2.40m/s [id number] Conclusion 1. DILATED CARDIOMYOPATHY 2. LV EF IS 30% AND IS MODERATELY REDUCED 3. MODERAE DEGREE LV AND RV HYPOKINESIS GLOBAL HYPOKINESIS 4. MILD PERICARDIAL EFFUSION 5. NORMAL VALVES 6. MODERATELY SEVERE PULMONARY HYPERTENSION RVSP IS 51 MM OF HG AND IS MODERATELY HIGH
[2024-07-25 07:25] LABS: Basophils # (auto) 0 10 ^3/uL (0-0.2); Eosinophils # (auto) 0 10 ^3/uL (0-0.8); Mean Corpuscular Hemoglobin 24.5 pg (28.0-32.0); Monocytes # (auto) 0.6 10 ^3/uL (0-1.3)
[2024-07-25 07:29] LABS: Basophils % (auto) 0.4 % (0.0-2.0); Eosinophils % (auto) 0.5 % (0.0-7.0); Hematocrit 26.9 % (41.0-53.0); Hemoglobin 8.9 g/dL (13.5-17.5); Mean Corpuscular Hgb Conc. 33.2 g/dL (32.0-36.0); Mean Corpuscular Volume 73.9 fL (80.0-100.0); Monocytes % (auto) 8.6 % (0.0-12.0); Neutrophils # (auto) 4.8 10 ^3/uL (1.6-8.6); Neutrophils % (auto) 74.5 % (37.0-80.0); Nucleated Red Blood Cells % 0.2 %; Platelet Count (auto) 307 10^3/uL (140-450); Red Blood Cells 3.64 10^6/uL (4.5-5.90); Red Cell Distribution Width 15.5 % (11.8-14.3); White Blood Cell 6.4 10^3/uL (4.4-10.8)
[2024-07-25 07:43] LABS: Alanine Aminotransferase 23 U/L (7-40); Carbon Dioxide 23 mmol/L (20-31); Chloride 103 mmol/L (98-107); Glucose 97 mg/dL (74-106); Potassium 3.7 mmol/L (3.5-5.1)
[2024-07-25 07:44] LABS: Anion Gap 9 (5-15); Aspartate Aminotransferase 33 U/L (13-40); BUN/Creatinine Ratio 22.4 (10.0-20.0); Magnesium 1.9 mg/dL (1.6-2.6)
[2024-07-25 07:45] LABS: Bilirubin, Total 0.3 mg/dL (0.2-1.0)
[2024-07-25 07:48] LABS: Albumin 2.8 g/dL (3.2-4.8); Alkaline Phosphatase 144 U/L (46-116); Blood Urea Nitrogen 41 mg/dL (9-23); Calcium 8.4 mg/dL (8.7-10.4); Sodium 135 mmol/L (136-145); Total Protein 5.2 g/dL (5.7-8.2)
--- NOTE | 2024-07-25 10:58 | DVHPN2 ---
Progress Note - Dictate Date Seen: Jul 25, 2024 Medical Necessity Reason Pt with a Central, PICC or Fol: No Subjective Awake and alert, states his shortness of breath has improved as has his lower extremity edema vital signs Vital Sign Date Time Temp Pulse Resp B/P (MAP) Pulse Ox O2 Delivery O2 Flow Rate FiO2 07/25/24 09:26 67 159/78 07/25/24 09:00 98.6 20 99 98.6 07/24/24 20:00 Room Air* 0 21 Total Intake and Output 07/24/24 07/24/24 07/25/24 15:00 23:00 07:00 Intake Total 50 ml 900 ml 460 ml Output Total 2950 ml 750 ml 1700 ml Balance -2900 ml 150 ml -1240 ml medications Current Medications Medications Dose Ordered Sig/Kelly Route Start Time Stop Time Status Last Admin Dose Admin Ceftriaxone Sodium 50 ml @ 100 mls/hr DAILY IV 07/23/24 10:00 07/25/24 09:25 100 MLS/HR Acetaminophen 650 mg Q6HP PRN PO 07/22/24 18:00 07/24/24 13:11 650 MG Ondansetron HCl 4 mg Q4HP PRN IV 07/22/24 18:00 07/24/24 13:11 4 MG Empaglifozin 10 mg DAILY PO 07/23/24 10:00 07/25/24 09:26 10 MG Ergocalciferol 50,000 unit Q7D PO 07/22/24 18:00 07/22/24 19:19 50,000 UNIT Ferrous Sulfate 325 mg DAILY PO 07/23/24 10:00 07/25/24 09:25 325 MG Insulin Glargine 15 units HS SC 07/22/24 22:00 07/24/24 22:21 15 UNITS Diagnostic Test (Pha) 1 strip ACHS 07/22/24 22:00 07/25/24 09:29 1 STRIP Insulin Human Regular ACHS SC 07/22/24 22:00 07/24/24 22:21 3 UNITS Dextrose 50 ml UD PRN IV 07/22/24 18:00 Carvedilol 12.5 mg Q12HR PO 07/24/24 22:00 07/25/24 09:26 12.5 MG Atorvastatin Calcium 40 mg HS PO 07/25/24 22:00 Furosemide 40 mg DAILY IV 07/26/24 10:00 Azithromycin 500 mg DAILY PO 07/25/24 10:00 objective Gen: nad heent: nc/at, mmm lungs: cta anteriorly cvs: no rub abd: soft, bowel sounds audible ext: + edema skin: no rash neuro: alert and oriented laboratory and microbiology Laboratory Tests 07/25/24 06:54 Test 07/25/24 06:54 Range/Units Serum Glucose 97 74-106 mg/dL Assessment/Plan IMP: 1) Hemodynamically mediated THIERRY/VMN - improving 2) CKD IIIa / II - baseline serum creatinine unknown to the board writer 3) proteinuria, nephrotic, 5 g suspect due to underlying diabetic kidney disease 4) hypertension 5) dyslipidemia 6) DM II REC: - continue with loop diuretic as needed - we will benefit from RAAS inhibition as outpatient once component of THIERRY resolved Dietary Evaluation Review Comments: 1) Add 60g CCHO restriction to cardiac diet order. 2) Continue to encourage optimal PO intake 3) Refer to outpatient RD/[facility] for diabetes education d/t uncontrolled HbA1c - 7.4% 4) Follow-up with cardiology and nephrology Expected Outcomes/Goals: 1) appetite and labs to improve 2) F/u in 5 days Plan discussed with: Patient REAL HERNANDEZ MD Jul 25, 2024 10:58
[2024-07-25] MEDS: AZITHROMYCIN 250 MG TAB PO SCH (11:02)
--- NOTE | 2024-07-25 17:44 | DVHPNRES ---
Progress Note Date Seen: Jul 25, 2024 Resident Creating Document: IZZY CORMIER RESIDENT Medical Necessity Reason Pt with a Central, PICC or Fol: No Subjective Review of Systems Patient seen and examined at the bedside Does not report of shortness of breath, chest pain, dizziness Patient is bilateral lower extremities swelling and bilateral rhonchi are improving Objective vital signs Vital Sign Date Time Temp Pulse Resp B/P (MAP) Pulse Ox O2 Delivery O2 Flow Rate FiO2 07/25/24 17:00 97.0 73 20 140/72 (94) 98 97.0 07/25/24 08:00 Room Air* 0 21 Total Intake and Output 07/24/24 07/24/24 07/25/24 15:00 23:00 07:00 Intake Total 50 ml 900 ml 460 ml Output Total 2950 ml 750 ml 1700 ml Balance -2900 ml 150 ml -1240 ml medications Current Medications Medications Dose Ordered Sig/Kelly Route Start Time Stop Time Status Last Admin Dose Admin Ceftriaxone Sodium 50 ml @ 100 mls/hr DAILY IV 07/23/24 10:00 07/25/24 09:25 100 MLS/HR Acetaminophen 650 mg Q6HP PRN PO 07/22/24 18:00 07/24/24 13:11 650 MG Ondansetron HCl 4 mg Q4HP PRN IV 07/22/24 18:00 07/24/24 13:11 4 MG Empaglifozin 10 mg DAILY PO 07/23/24 10:00 07/25/24 09:26 10 MG Ergocalciferol 50,000 unit Q7D PO 07/22/24 18:00 07/22/24 19:19 50,000 UNIT Ferrous Sulfate 325 mg DAILY PO 07/23/24 10:00 07/25/24 09:25 325 MG Insulin Glargine 15 units HS SC 07/22/24 22:00 07/24/24 22:21 15 UNITS Diagnostic Test (Pha) 1 strip ACHS 07/22/24 22:00 07/25/24 09:29 1 STRIP Insulin Human Regular ACHS SC 07/22/24 22:00 07/25/24 11:05 3 UNITS Dextrose 50 ml UD PRN IV 07/22/24 18:00 Carvedilol 12.5 mg Q12HR PO 07/24/24 22:00 07/25/24 09:26 12.5 MG Atorvastatin Calcium 40 mg HS PO 07/25/24 22:00 Furosemide 40 mg DAILY IV 07/26/24 10:00 Azithromycin 500 mg DAILY PO 07/25/24 10:00 07/25/24 11:02 500 MG Examination Constitutional: Patient is alert and oriented to time, place and person and does not appear to be in any acute distress Gen - no pallor, no icterus, no cyanosis, no clubbing, no LAD, 3+ pitting edema up to the bilateral knees Skin - Patients skin is warm and dry. HEENT - normocephalic, atraumatic, moist mucous membranes. Neck - full ROM, no LAD, JVD elevated to the middle part of the SCM Pulmonary - B/L equal air entry with bibasilar crackles, no wheezing cardiovascular - variable S1,S2 heard. no murmurs heard. peripheral pulses normal radial 2+, pedal 2+. GI - soft abdomen without tenderness to palpation. no hepatospleenomegaly. Bowel sounds normoactive Neurological - Bilateral upper extremity strength 5/5, bilateral lower extremity strength 5/5, no facial droop, normal speech, no tremor, no sensory deficiets. laboratory and microbiology Laboratory Tests 07/25/24 06:54 Test 07/25/24 06:54 Range/Units Serum Glucose 97 74-106 mg/dL Microbiology Date/Time Source Procedure Growth Status 07/22/24 18:44 Blood Blood Culture - Preliminary NO GROWTH AFTER 48 HOURS OF INCUBATION. Resulted Problem List/Assessment/Plan Problem List/Assessment/Plan Assessment # Acute exacerbation of suspected heart failure with preserved ejection fraction # hypertensive heart disease with diastolic heart failure # community-acquired pneumonia likely due to Gram-positive/negative/atypical bacteria # uncontrolled type 2 diabetes mellitus with hyperglycemia # THIERRY on CKD likely hemodynamically mediated due to VMN -Chest x-ray shows left lower lobe opacity, increased pulmonary vascular congestion -CTA chest shows 1. No pulmonary embolism. 2. Bilateral pleural effusions left greater than right. Patchy consolidation in both lungs left greater than right. Mediastinal and hilar lymphadenopathy. Suspect infectious/inflammatory process. Congestive failure or fluid overload could have a similar appearance. -BNP > 1000 Plan - diuresis with Lasix 40 mg b.i.d. IV patient had a urine output of 5400 mL. Lasix decreased to 40 mg IV once daily - losartan 50 mg - started on carvedilol 12.5 mg b.i.d. - on Jardiance 10 mg - on ceftriaxone IV and azithromycin p.o. - insulin Lantus 15 units HS and mild insulin sliding - echocardiogram showed LVEF 30% and moderate degree LV and RV hypokinesis, moderately severe pulmonary hypertension with RVSP of 51 mmHg - nephrology consulted who recommended continuing the same treatment Goals discussed with the patient for over 25 minutes. Full code Plan discussed with Dr. Victoria Plan discussed with: Patient My Orders My Orders Orders - IZZY CORMIER RESIDENT Procedure Category Date Status Time Atorvastatin (Lipitor) PHA 07/25/24 In Process 22:00 Furosemide Injection PHA 07/26/24 In Process (Lasix Injection) 10:00 Azithromycin Tablet PHA 07/25/24 In Process (Zithromax Tablet) 10:00 Dietary Evaluation Review Comments: 1) Add 60g CCHO restriction to cardiac diet order. 2) Continue to encourage optimal PO intake 3) Refer to outpatient RD/[facility] for diabetes education d/t uncontrolled HbA1c - 7.4% 4) Follow-up with cardiology and nephrology Expected Outcomes/Goals: 1) appetite and labs to improve 2) F/u in 5 days Date of Service: Jul 25, 2024 Billing Provider: YANA VICTORIA MD Common Visit Codes: [id number] INP/OBS CARE(HIGH) IZZY CORMIER RESIDENT Jul 25, 2024 17:44 YANA VICTORIA MD Jul 26, 2024 14:07
--- NOTE | 2024-07-25 19:14 | DVHPN2 ---
Progress Note - Dictate Date Seen: Jul 25, 2024 Medical Necessity Reason Pt with a Central, PICC or Fol: No Subjective Patient was seen and evaluated in follow up. No overnight events. Bilateral lower extremities swelling is improving. HGB 8.9, HCT 26.9, NA 135, BUN 41, TEN PIN [employer] MANAGER 1.83, CA 8.4. Telemetry reviewed. vital signs Vital Sign Date Time Temp Pulse Resp B/P (MAP) Pulse Ox O2 Delivery O2 Flow Rate FiO2 07/25/24 17:00 97.0 73 20 140/72 (94) 98 97.0 07/25/24 08:00 Room Air* 0 21 Total Intake and Output 07/24/24 07/24/24 07/25/24 15:00 23:00 07:00 Intake Total 50 ml 900 ml 460 ml Output Total 2950 ml 750 ml 1700 ml Balance -2900 ml 150 ml -1240 ml medications Current Medications Medications Dose Ordered Sig/Kelly Route Start Time Stop Time Status Last Admin Dose Admin Ceftriaxone Sodium 50 ml @ 100 mls/hr DAILY IV 07/23/24 10:00 07/25/24 09:25 100 MLS/HR Acetaminophen 650 mg Q6HP PRN PO 07/22/24 18:00 07/24/24 13:11 650 MG Ondansetron HCl 4 mg Q4HP PRN IV 07/22/24 18:00 07/24/24 13:11 4 MG Empaglifozin 10 mg DAILY PO 07/23/24 10:00 07/25/24 09:26 10 MG Ergocalciferol 50,000 unit Q7D PO 07/22/24 18:00 07/22/24 19:19 50,000 UNIT Ferrous Sulfate 325 mg DAILY PO 07/23/24 10:00 07/25/24 09:25 325 MG Diagnostic Test (Pha) 1 strip ACHS 07/22/24 22:00 07/25/24 17:00 1 STRIP Insulin Human Regular ACHS SC 07/22/24 22:00 07/25/24 17:53 3 UNITS Dextrose 50 ml UD PRN IV 07/22/24 18:00 Carvedilol 12.5 mg Q12HR PO 07/24/24 22:00 07/25/24 09:26 12.5 MG Atorvastatin Calcium 40 mg HS PO 07/25/24 22:00 Furosemide 40 mg DAILY IV 07/26/24 10:00 Azithromycin 500 mg DAILY PO 07/25/24 10:00 07/25/24 11:02 500 MG Insulin Glargine 12 units HS SC 07/25/24 22:00 UNV objective GENERAL: Awake, alert, oriented. LUNGS: Diminished breath sounds. CARDIOVASCULAR: Heart sounds are good. ABDOMEN: Soft. EXT: BLE edema. laboratory and microbiology Laboratory Tests 07/25/24 06:54 Test 07/25/24 06:54 Range/Units Serum Glucose 97 74-106 mg/dL Problem List Acute CHF exacerbation. THIERRY. Bilateral pneumonia. Assessment/Plan Continued all current supportive medical care. Dilaudid and [place] for pain management. Amlodipine, Coreg. Lipitor. IV antibiotics as ordered. Diuretics with Lasix. IV Hydralazine for SBP> 160. Additional plan as per the hospital course. Dietary Evaluation Review Comments: 1) Add 60g CCHO restriction to cardiac diet order. 2) Continue to encourage optimal PO intake 3) Refer to outpatient RD/[facility] for diabetes education d/t uncontrolled HbA1c - 7.4% 4) Follow-up with cardiology and nephrology Expected Outcomes/Goals: 1) appetite and labs to improve 2) F/u in 5 days Plan discussed with: Patient AJIT BREWER MD Jul 25, 2024 18:45
[2024-07-25] MEDS: ATORVASTATIN 20 MG TAB PO SCH (21:19)
[2024-07-25] MEDS: INSULIN LANTUS (GLARGINE) 1 /0.01ml (100units/ml) SC SCH (21:38)
[2024-07-26] VITALS (9 sets, daily range): BP systolic 115–178; BP diastolic 70–84; PULSE 71–86; RESP 17–19; TEMP 98–98.7; O2SAT 95–98
[2024-07-26 07:21] LABS: Basophils # (auto) 0.1 10 ^3/uL (0-0.2); Eosinophils # (auto) 0.1 10 ^3/uL (0-0.8); Eosinophils % (auto) 1.2 % (0.0-7.0); Hemoglobin 9.1 g/dL (13.5-17.5); Nucleated Red Blood Cells % 0.1 %
[2024-07-26 07:23] LABS: Alanine Aminotransferase 29 U/L (7-40); Albumin 2.9 g/dL (3.2-4.8); Alkaline Phosphatase 147 U/L (46-116); Anion Gap 8 (5-15); Aspartate Aminotransferase 35 U/L (13-40); BUN/Creatinine Ratio 22.8 (10.0-20.0); Basophils % (auto) 0.8 % (0.0-2.0); Bilirubin, Total 0.3 mg/dL (0.2-1.0); Blood Urea Nitrogen 39 mg/dL (9-23); Calcium 8.3 mg/dL (8.7-10.4); Carbon Dioxide 26 mmol/L (20-31); Chloride 106 mmol/L (98-107); Glucose 56 mg/dL (74-106); Hematocrit 27.4 % (41.0-53.0); Lymphocytes % (auto) 25.6 % (10.0-50.0); Magnesium 1.9 mg/dL (1.6-2.6); Mean Corpuscular Hemoglobin 24.8 pg (28.0-32.0); Mean Corpuscular Hgb Conc. 33.1 g/dL (32.0-36.0); Mean Corpuscular Volume 74.9 fL (80.0-100.0); Monocytes # (auto) 0.9 10 ^3/uL (0-1.3); Monocytes % (auto) 11.2 % (0.0-12.0); Neutrophils # (auto) 4.7 10 ^3/uL (1.6-8.6); Neutrophils % (auto) 61.2 % (37.0-80.0); Platelet Count (auto) 407 10^3/uL (140-450); Potassium 3.7 mmol/L (3.5-5.1); Red Blood Cells 3.66 10^6/uL (4.5-5.90); Red Cell Distribution Width 15.4 % (11.8-14.3); Sodium 140 mmol/L (136-145); Total Protein 5.4 g/dL (5.7-8.2); White Blood Cell 7.8 10^3/uL (4.4-10.8)
[2024-07-26] MEDS: FUROSEMIDE 40 MG/4 ML VIAL IV SCH (08:39)
[2024-07-26] MEDS: LOSARTAN POTASSIUM 50 MG TAB PO SCH (11:08)
--- NOTE | 2024-07-26 13:25 | DVHPN2 ---
Progress Note - Dictate Date Seen: Jul 26, 2024 Medical Necessity Reason Pt with a Central, PICC or Fol: No Subjective Patient was seen and evaluated in follow up. No overnight events. Patient denies any new complaints. HGB 9.1, HCT 27.4, BUN 39, Chain Puller 1.71, Alk Phos 147. Telemetry reviewed. vital signs Vital Sign Date Time Temp Pulse Resp B/P (MAP) Pulse Ox O2 Delivery O2 Flow Rate FiO2 07/26/24 13:11 98.3 71 19 139/70 (93) 98 98.3 07/26/24 08:15 Room Air* 0 21 Total Intake and Output 07/25/24 07/25/24 07/26/24 14:59 22:59 06:59 Intake Total 408 ml 1000 ml 100 ml Output Total 1451 ml 1450 ml Balance 408 ml -451 ml -1350 ml medications Current Medications Medications Dose Ordered Sig/Kelly Route Start Time Stop Time Status Last Admin Dose Admin Ceftriaxone Sodium 50 ml @ 100 mls/hr DAILY IV 07/23/24 10:00 07/26/24 08:39 100 MLS/HR Acetaminophen 650 mg Q6HP PRN PO 07/22/24 18:00 07/24/24 13:11 650 MG Ondansetron HCl 4 mg Q4HP PRN IV 07/22/24 18:00 07/24/24 13:11 4 MG Empaglifozin 10 mg DAILY PO 07/23/24 10:00 07/26/24 08:37 10 MG Ergocalciferol 50,000 unit Q7D PO 07/22/24 18:00 07/22/24 19:19 50,000 UNIT Ferrous Sulfate 325 mg DAILY PO 07/23/24 10:00 07/26/24 08:37 325 MG Diagnostic Test (Pha) 1 strip ACHS 07/22/24 22:00 07/26/24 11:00 1 STRIP Insulin Human Regular ACHS SC 07/22/24 22:00 07/26/24 11:04 3 UNITS Dextrose 50 ml UD PRN IV 07/22/24 18:00 Carvedilol 12.5 mg Q12HR PO 07/24/24 22:00 07/26/24 08:38 12.5 MG Atorvastatin Calcium 40 mg HS PO 07/25/24 22:00 3/16/25 21:19 40 MG Furosemide 40 mg DAILY IV 07/26/24 10:00 07/26/24 08:39 40 MG Azithromycin 500 mg DAILY PO 07/25/24 10:00 07/26/24 08:37 500 MG Insulin Glargine 12 units HS SC 07/25/24 22:00 07/25/24 21:38 12 UNITS Losartan Potassium 50 mg DAILY PO 07/26/24 10:00 07/26/24 11:08 50 MG objective GENERAL: Awake, alert, oriented. LUNGS: Diminished breath sounds. CARDIOVASCULAR: Heart sounds are good. ABDOMEN: Soft. EXT: BLE edema. laboratory and microbiology Laboratory Tests 07/26/24 06:39 Test 07/26/24 06:39 Range/Units Serum Glucose 56 L 74-106 mg/dL Problem List Acute CHF exacerbation. THIERRY. Bilateral pneumonia. Assessment/Plan Continued all current supportive medical care. Dilaudid and [place] for pain management. Amlodipine, Coreg. Lipitor. IV antibiotics as ordered. Diuretics with Lasix. IV Hydralazine for SBP> 160. Additional plan as per the hospital course. Dietary Evaluation Review Comments: 1) Add 60g CCHO restriction to cardiac diet order. 2) Continue to encourage optimal PO intake 3) Refer to outpatient RD/[facility] for diabetes education d/t uncontrolled HbA1c - 7.4% 4) Follow-up with cardiology and nephrology Expected Outcomes/Goals: 1) appetite and labs to improve 2) F/u in 5 days Plan discussed with: Patient AJIT BREWER MD Jul 26, 2024 13:25
--- NOTE | 2024-07-26 14:23 | DVHPNRES ---
Progress Note Date Seen: Jul 26, 2024 Resident Creating Document: IZZY CORMIER RESIDENT Medical Necessity Reason Pt with a Central, PICC or Fol: No Subjective Review of Systems Patient seen and examined at the bedside Does not report of shortness of breath, chest pain, dizziness Patient is bilateral lower extremities swelling and bilateral rhonchi are improving Objective vital signs Vital Sign Date Time Temp Pulse Resp B/P (MAP) Pulse Ox O2 Delivery O2 Flow Rate FiO2 07/26/24 13:11 98.3 71 19 139/70 (93) 98 98.3 07/26/24 08:15 Room Air* 0 21 Total Intake and Output 07/25/24 07/25/24 07/26/24 15:00 23:00 07:00 Intake Total 408 ml 1000 ml 100 ml Output Total 1451 ml 1450 ml Balance 408 ml -451 ml -1350 ml medications Current Medications Medications Dose Ordered Sig/Kelly Route Start Time Stop Time Status Last Admin Dose Admin Ceftriaxone Sodium 50 ml @ 100 mls/hr DAILY IV 07/23/24 10:00 07/26/24 08:39 100 MLS/HR Acetaminophen 650 mg Q6HP PRN PO 07/22/24 18:00 07/24/24 13:11 650 MG Ondansetron HCl 4 mg Q4HP PRN IV 07/22/24 18:00 07/24/24 13:11 4 MG Empaglifozin 10 mg DAILY PO 07/23/24 10:00 07/26/24 08:37 10 MG Ergocalciferol 50,000 unit Q7D PO 07/22/24 18:00 07/22/24 19:19 50,000 UNIT Ferrous Sulfate 325 mg DAILY PO 07/23/24 10:00 07/26/24 08:37 325 MG Diagnostic Test (Pha) 1 strip ACHS 07/22/24 22:00 07/26/24 11:00 1 STRIP Insulin Human Regular ACHS SC 07/22/24 22:00 07/26/24 11:04 3 UNITS Dextrose 50 ml UD PRN IV 07/22/24 18:00 Carvedilol 12.5 mg Q12HR PO 07/24/24 22:00 07/26/24 08:38 12.5 MG Atorvastatin Calcium 40 mg HS PO 07/25/24 22:00 07/25/24 21:19 40 MG Furosemide 40 mg DAILY IV 07/26/24 10:00 07/26/24 08:39 40 MG Azithromycin 500 mg DAILY PO 07/25/24 10:00 07/26/24 08:37 500 MG Insulin Glargine 12 units HS SC 07/25/24 22:00 07/25/24 21:38 12 UNITS Sacubitril/ Valsartan 2 tab BID PO 07/26/24 22:00 UNV Examination Constitutional: Patient is alert and oriented to time, place and person and does not appear to be in any acute distress Gen - no pallor, no icterus, no cyanosis, no clubbing, no LAD, 3+ pitting edema up to the bilateral knees Skin - Patients skin is warm and dry. HEENT - normocephalic, atraumatic, moist mucous membranes. Neck - full ROM, no LAD, JVD elevated to the middle part of the SCM Pulmonary - B/L equal air entry with bibasilar crackles, no wheezing cardiovascular - variable S1,S2 heard. no murmurs heard. peripheral pulses normal radial 2+, pedal 2+. GI - soft abdomen without tenderness to palpation. no hepatospleenomegaly. Bowel sounds normoactive Neurological - Bilateral upper extremity strength 5/5, bilateral lower extremity strength 5/5, no facial droop, normal speech, no tremor, no sensory deficiets. laboratory and microbiology Laboratory Tests 07/26/24 06:39 Test 07/26/24 06:39 Range/Units Serum Glucose 56 L 74-106 mg/dL Microbiology Date/Time Source Procedure Growth Status 07/22/24 18:44 Blood Blood Culture - Preliminary NO GROWTH AFTER 72 HOURS OF INCUBATION. Resulted Problem List/Assessment/Plan Problem List/Assessment/Plan Assessment # Acute exacerbation of suspected heart failure with preserved ejection fraction # hypertensive heart disease with diastolic heart failure # community-acquired pneumonia likely due to Gram-positive/negative/atypical bacteria # uncontrolled type 2 diabetes mellitus with hyperglycemia # THIERRY on CKD likely hemodynamically mediated due to VMN -Chest x-ray shows left lower lobe opacity, increased pulmonary vascular congestion -CTA chest shows 1. No pulmonary embolism. 2. Bilateral pleural effusions left greater than right. Patchy consolidation in both lungs left greater than right. Mediastinal and hilar lymphadenopathy. Suspect infectious/inflammatory process. Congestive failure or fluid overload could have a similar appearance. -BNP > 1000 Plan - diuresis with Lasix 40 mg IV daily and patient had a balance of -1.4 L in the last 24 hours. Patient will be given diuresis Lasix 40 b.i.d. - losartan 50 mg stopped and the patient is started on Entresto 49-51 b.i.d. - on carvedilol 12.5 mg b.i.d. - on Jardiance 10 mg - on ceftriaxone IV and azithromycin p.o. - insulin Lantus 15 units HS and mild insulin sliding - echocardiogram showed LVEF 30% and moderate degree LV and RV hypokinesis, moderately severe pulmonary hypertension with RVSP of 51 mmHg - nephrology consulted who recommended continuing the same treatment - cavalry scout Dr. Adrian Patel recommended outpatient follow up for further workup of heart failure with reduced ejection fraction and patient to be continued on GDMT Goals discussed with the patient and the for over 21 minutes. Full code Plan discussed with Dr. Doan Plan discussed with: Patient My Orders My Orders Orders - IZZY CORMIER Procedure Category Date Status Time Insulin Lantus PHA 07/25/24 In Process (Glargine) (Lantus) 22:00 Losartan Tablet PHA 07/26/24 In Process (Cozaar Tablet) 10:00 Sacubitril-Valsartan PHA 07/26/24 Transmitted (Entresto 24-26 Mg 22:00 Dietary Evaluation Review Comments: 1) Add 60g CCHO restriction to cardiac diet order. 2) Continue to encourage optimal PO intake 3) Refer to outpatient RD/[facility] for diabetes education d/t uncontrolled HbA1c - 7.4% 4) Follow-up with cardiology and nephrology Expected Outcomes/Goals: 1) appetite and labs to improve 2) F/u in 5 days Date of Service: Jul 26, 2024 Billing Provider: MARNI DOAN MD Common Visit Codes: [id number] INP/OBS CARE(HIGH) IZZY CORMIER RESIDENT Jul 26, 2024 14:23 MARNI DOAN MD Jul 27, 2024 14:52
[2024-07-26] MEDS: ASPirin 81 mg TAB PO ONE (17:20)
[2024-07-26] MEDS: FUROSEMIDE 40 MG/4 ML VIAL IV ONE (18:39)
--- NOTE | 2024-07-26 19:34 | DVHPN2 ---
Progress Note Date Seen: Jul 26, 2024 Medical Necessity Reason Pt with a Central, PICC or Fol: No Subjective Patient reports: No new complaints, Feels better, Other Review of Systems: HEENT:Normal, CVS:Normal, RESPIRATORY:Normal, GI:Normal, :Normal, MSK:Normal, NEURO:Normal Objective vital signs Vital Sign Date Time Temp Pulse Resp B/P (MAP) Pulse Ox O2 Delivery O2 Flow Rate FiO2 07/26/24 18:39 156/85 07/26/24 17:15 98.1 84 18 95 98.1 07/26/24 08:15 Room Air* 0 21 Total Intake and Output 07/25/24 07/25/24 07/26/24 15:00 23:00 07:00 Intake Total 408 ml 1000 ml 100 ml Output Total 1451 ml 1450 ml Balance 408 ml -451 ml -1350 ml medications Current Medications Medications Dose Ordered Sig/Kelly Route Start Time Stop Time Status Last Admin Dose Admin Ceftriaxone Sodium 50 ml @ 100 mls/hr DAILY IV 07/23/24 10:00 07/26/24 08:39 100 MLS/HR Acetaminophen 650 mg Q6HP PRN PO 07/22/24 18:00 07/24/24 13:11 650 MG Ondansetron HCl 4 mg Q4HP PRN IV 07/22/24 18:00 07/24/24 13:11 4 MG Empaglifozin 10 mg DAILY PO 07/23/24 10:00 07/26/24 08:37 10 MG Ergocalciferol 50,000 unit Q7D PO 07/22/24 18:00 07/22/24 19:19 50,000 UNIT Ferrous Sulfate 325 mg DAILY PO 07/23/24 10:00 07/26/24 08:37 325 MG Diagnostic Test (Pha) 1 strip ACHS 07/22/24 22:00 07/26/24 17:14 1 STRIP Insulin Human Regular ACHS SC 07/22/24 22:00 07/26/24 17:19 2 UNITS Dextrose 50 ml UD PRN IV 07/22/24 18:00 Carvedilol 12.5 mg Q12HR PO 07/24/24 22:00 07/26/24 08:38 12.5 MG Atorvastatin Calcium 40 mg HS PO 07/25/24 22:00 07/25/24 21:19 40 MG Furosemide 40 mg DAILY IV 07/26/24 10:00 07/26/24 08:39 40 MG Azithromycin 500 mg DAILY PO 07/25/24 10:00 07/26/24 08:37 500 MG Insulin Glargine 12 units HS SC 07/25/24 22:00 07/25/24 21:38 12 UNITS Sacubitril/ Valsartan 2 tab BID PO 07/26/24 22:00 Aspirin 81 mg DAILY PO 07/27/24 10:00 Examination: GENERAL:Normal, HEENT:Normal, NECK:Normal, LUNGS:Normal, CVS:Normal, ABDOMEN:Normal, MSK:Normal, SKIN:Normal, NEURO:Normal, :Normal laboratory and microbiology Laboratory Tests 07/26/24 06:39 Test 07/26/24 06:39 Range/Units Serum Glucose 56 L 74-106 mg/dL Microbiology Date/Time Source Procedure Growth Status 07/22/24 18:44 Blood Blood Culture - Preliminary NO GROWTH AFTER 72 HOURS OF INCUBATION. Resulted Problem List/Assessment/Plan Problem List/Assessment/Plan 1) Hemodynamically mediated THIERRY - improving 2) CKD IIIa / II - baseline serum creatinine unknown to the lead technical writer 3) proteinuria, nephrotic, 5 g suspect due to underlying diabetic kidney disease 4) hypertension 5) dyslipidemia 6) DM II REC: - continue with loop diuretic as needed ok to initiate ARB or acei Plan discussed with: Patient Dietary Evaluation Review Comments: 1) Add 60g CCHO restriction to cardiac diet order. 2) Continue to encourage optimal PO intake 3) Refer to outpatient RD/[facility] for diabetes education d/t uncontrolled HbA1c - 7.4% 4) Follow-up with cardiology and nephrology Expected Outcomes/Goals: 1) appetite and labs to improve 2) F/u in 5 days RUBY PATTON MD Jul 26, 2024 19:34
[2024-07-26] MEDS: SACUBITRIL-VALSARTAN 24mg/26mg TAB PO SCH (21:19)
[2024-07-26] MEDS: amLODIPine BESYLATE 5 MG TAB PO ONE (23:22)
[2024-07-26] MEDS: hydrALAZINE HCL 20 MG/ML VL IV ONE (23:23)
[2024-07-27 05:00] VITALS: BP 123/59; PULSE 76; RESP 19; TEMP 98; O2SAT 94
[2024-07-27 06:03] LABS: Basophils # (auto) 0.1 10 ^3/uL (0-0.2); Basophils % (auto) 0.9 % (0.0-2.0); Eosinophils # (auto) 0.1 10 ^3/uL (0-0.8); Eosinophils % (auto) 1.7 % (0.0-7.0); Hematocrit 27.1 % (41.0-53.0); Lymphocytes # (auto) 1.4 10 ^3/uL (0.4-5.4); Mean Corpuscular Hemoglobin 24.8 pg (28.0-32.0); Mean Corpuscular Hgb Conc. 33.2 g/dL (32.0-36.0); Mean Corpuscular Volume 74.7 fL (80.0-100.0); Monocytes # (auto) 0.7 10 ^3/uL (0-1.3); Monocytes % (auto) 10.1 % (0.0-12.0); Neutrophils # (auto) 4.8 10 ^3/uL (1.6-8.6); Neutrophils % (auto) 67.3 % (37.0-80.0); Nucleated Red Blood Cells % 0.1 %; Platelet Count (auto) 353 10^3/uL (140-450); Red Blood Cells 3.63 10^6/uL (4.5-5.90); Red Cell Distribution Width 15.7 % (11.8-14.3); White Blood Cell 7.2 10^3/uL (4.4-10.8)
[2024-07-27 06:19] LABS: Alanine Aminotransferase 32 U/L (7-40); Anion Gap 10 (5-15); BUN/Creatinine Ratio 22.8 (10.0-20.0); Carbon Dioxide 24 mmol/L (20-31); Chloride 106 mmol/L (98-107); Glucose 102 mg/dL (74-106); Magnesium 1.9 mg/dL (1.6-2.6); Sodium 140 mmol/L (136-145)
[2024-07-27 06:21] LABS: Aspartate Aminotransferase 38 U/L (13-40); Bilirubin, Total 0.4 mg/dL (0.2-1.0)
[2024-07-27 06:32] LABS: Albumin 2.8 g/dL (3.2-4.8); Alkaline Phosphatase 144 U/L (46-116); Blood Urea Nitrogen 37 mg/dL (9-23); Calcium 8.3 mg/dL (8.7-10.4); Potassium 3.3 mmol/L (3.5-5.1); Total Protein 5.3 g/dL (5.7-8.2)
[2024-07-27] MEDS: POTASSIUM CHL 20 Meq TABLET PO ONE (07:51)
[2024-07-27 09:00] VITALS: BP 126/61; PULSE 73; RESP 18; TEMP 98; O2SAT 96
[2024-07-27] MEDS: ASPirin 81 mg TAB PO SCH (09:44)
--- NOTE | 2024-07-27 10:11 | CONS ---
Pharmacy Clinical Information: From Heart Failure Fallout Report on CQM Application, Cortes Wheeler Higinio is a 54 year old male with PMH of HTN, DM, HLD. His home medications for heart failure include enalapril, metoprolol succinate. His inpatient medications include carvedilol, empagliflozin, sacubitril/vasartan, and furosmide. Consider initiation of MRA once patient is hemodynamically stable and renal function stabilizes since K <5 and eGFR > 30. LISETTE DIAL PHARMACIST Jul 27, 2024 10:11
[2024-07-27 12:58] VITALS: BP 130/64; PULSE 72; RESP 18; TEMP 97.4; O2SAT 96
[2024-07-27] MEDS ORDERED: ASPI-325 PO (13:26)
[2024-07-27] MEDS ORDERED: BLOO-169 XX (13:26)
[2024-07-27] MEDS ORDERED: ERGO1CAP23 PO (13:26)
[2024-07-27] MEDS ORDERED: CARV-216 PO (13:26)
[2024-07-27] MEDS ORDERED: ATOR40TA52 PO (13:26)
[2024-07-27] MEDS ORDERED: EMPA1TAB PO (13:26)
[2024-07-27] MEDS ORDERED: LANC-347 XX (13:26)
[2024-07-27] MEDS ORDERED: SACU1TAB PO (13:26)
[2024-07-27] MEDS ORDERED: FURO40TA4 PO ×2 (13:26)
[2024-07-27 15:03] VITALS: BP 135/69; PULSE 74; TEMP 36.3
--- NOTE | 2024-07-27 15:21 | DVHPN2 ---
Progress Note Date Seen: Jul 27, 2024 Medical Necessity Reason Pt with a Central, PICC or Fol: No Subjective Patient reports: No new complaints Review of Systems: Deferred Objective vital signs Vital Sign Date Time Temp Pulse Resp B/P (MAP) Pulse Ox O2 Delivery O2 Flow Rate FiO2 07/27/24 15:03 36.3 74 07/27/24 12:58 18 130/64 (86) 96 07/27/24 08:05 Room Air* 0 21 Total Intake and Output 07/26/24 07/26/24 07/27/24 15:00 23:00 07:00 Intake Total 50 ml 1200 ml 0 ml Output Total 2300 ml Balance 50 ml -1100 ml 0 ml medications Current Medications Medications Dose Ordered Sig/Kelly Route Start Time Stop Time Status Last Admin Dose Admin Ceftriaxone Sodium 50 ml @ 100 mls/hr DAILY IV 07/23/24 10:00 07/27/24 09:43 100 MLS/HR Acetaminophen 650 mg Q6HP PRN PO 07/22/24 18:00 07/27/24 01:34 650 MG Ondansetron HCl 4 mg Q4HP PRN IV 07/22/24 18:00 07/24/24 13:11 4 MG Empaglifozin 10 mg DAILY PO 07/23/24 10:00 07/27/24 09:45 10 MG Ergocalciferol 50,000 unit Q7D PO 07/22/24 18:00 07/22/24 19:19 50,000 UNIT Ferrous Sulfate 325 mg DAILY PO 07/23/24 10:00 07/27/24 09:45 325 MG Diagnostic Test (Pha) 1 strip ACHS 07/22/24 22:00 07/27/24 10:49 1 STRIP Insulin Human Regular ACHS SC 07/22/24 22:00 07/27/24 10:53 3 UNITS Dextrose 50 ml UD PRN IV 07/22/24 18:00 Carvedilol 12.5 mg Q12HR PO 07/24/24 22:00 07/27/24 09:45 12.5 MG Atorvastatin Calcium 40 mg HS PO 07/25/24 22:00 07/26/24 21:19 40 MG Furosemide 40 mg DAILY IV 07/26/24 10:00 07/27/24 09:44 40 MG Azithromycin 500 mg DAILY PO 07/25/24 10:00 07/27/24 09:45 500 MG Insulin Glargine 12 units HS SC 07/25/24 22:00 07/26/24 22:05 12 UNITS Sacubitril/ Valsartan 2 tab BID PO 07/26/24 22:00 07/27/24 09:46 2 TAB Aspirin 81 mg DAILY PO 07/27/24 10:00 07/27/24 09:44 81 MG Examination: GENERAL:Normal, HEENT:Normal, NECK:Normal, LUNGS:Normal, CVS:Normal, ABDOMEN:Normal, MSK:Normal, SKIN:Normal, NEURO:Normal, :Normal laboratory and microbiology Laboratory Tests 07/27/24 04:22 Test 07/27/24 04:22 Range/Units Serum Glucose 102 74-106 mg/dL Microbiology Date/Time Source Procedure Growth Status 07/22/24 18:44 Blood Blood Culture - Preliminary NO GROWTH AFTER 72 HOURS OF INCUBATION. Resulted Problem List/Assessment/Plan Problem List/Assessment/Plan 1) Hemodynamically mediated THIERRY - improving 2) CKD IIIa / II - baseline serum creatinine unknown to the adjusto writer operator 3) proteinuria, nephrotic, 5 g suspect due to underlying diabetic kidney disease 4) hypertension 5) dyslipidemia 6) DM II REC: - continue with loop diuretic as needed ok to initiate ARB or acei Plan discussed with: Patient Dietary Evaluation Review Comments: 1) Add 60g CCHO restriction to cardiac diet order. 2) Continue to encourage optimal PO intake 3) Refer to outpatient RD/[facility] for diabetes education d/t uncontrolled HbA1c - 7.4% 4) Follow-up with cardiology and nephrology Expected Outcomes/Goals: 1) appetite and labs to improve 2) F/u in 5 days RUBY PATTON MD Jul 27, 2024 15:21
--- NOTE | 2024-07-27 17:10 | ECG ---
[facility] Test Date: 2024-07-23 Test Time: 12:26:28 Pat Name: XENIA AGUIRRE Department: Respiratoy Room: 0250 B Gender: M Acute Care Registered Nurse: : 1970 Requested By: AJIT BREWER Order Number: [id number] Reading MD: Umang Chandra Measurements Intervals [place] Rate: 79 P: 67 SC: 153 QRS: 80 QRSD: 87 T: 90 QT: 416 QTc: 477 Interpretive Statements Sinus rhythm Consider left ventricular hypertrophy Nonspecific T abnormalities, lateral leads Borderline prolonged QT interval Electronically Signed On 07-28-2024 22:27:06 PDT by Umang Chandra Please click the below link to view image of tracing.
--- NOTE | 2024-07-27 19:41 | DVHDSRES ---
Discharge Summary Date of Admission Resident Creating Document: IZZY CORMIER RESIDENT Jul 22, 2024 at 17:51 Date of Discharge: Jul 27, 2024 Admitting Diagnosis Acute CHF exacerbation THIERRY on CKD versus CKD Elevated D-dimer pulmonary embolism ruled out Bilateral pneumonia Wounds: none Labs/Diagnostic Data: Laboratory Results Test 07/27/24 10:46 07/27/24 04:22 07/24/24 07:08 07/23/24 23:27 POC Glucose 185 mg/dl (70-106) White Blood Count 7.2 10^3/uL (4.4-10.8) Red Blood Count 3.63 10^6/uL (4.5-5.90) Hemoglobin 9.0 g/dL (13.5-17.5) Hematocrit 27.1 % (41.0-53.0) Mean Corpuscular Volume 74.7 fL (80.0-100.0) Mean Corpuscular Hemoglobin 24.8 pg (28.0-32.0) Mean Corpuscular Hemoglobin Concent 33.2 g/dL (32.0-36.0) Red Cell Distribution Width 15.7 % (11.8-14.3) Platelet Count 353 10^3/uL (140-450) Mean Platelet Volume 7.4 fL (6.9-10.8) Neutrophils (%) (Auto) 67.3 % (37.0-80.0) Lymphocytes (%) (Auto) 20.0 % (10.0-50.0) Monocytes (%) (Auto) 10.1 % (0.0-12.0) Eosinophils (%) (Auto) 1.7 % (0.0-7.0) Basophils (%) (Auto) 0.9 % (0.0-2.0) Neutrophils # (Auto) 4.8 10 ^3/uL (1.6-8.6) Lymphocytes # (Auto) 1.4 10 ^3/uL (0.4-5.4) Monocytes # (Auto) 0.7 10 ^3/uL (0-1.3) Eosinophils # (Auto) 0.1 10 ^3/uL (0-0.8) Basophils # (Auto) 0.1 10 ^3/uL (0-0.2) Nucleated Red Blood Cells 0.1 % Sodium Level 140 mmol/L (136-145) Potassium Level 3.3 mmol/L (3.5-5.1) Chloride Level 106 mmol/L (98-107) Carbon Dioxide Level 24 mmol/L (20-31) Anion Gap 10 (5-15) Blood Urea Nitrogen 37 mg/dL (9-23) Creatinine 1.62 mg/dL (0.700-1.30) Glomerular Filtration Rate Calc 51 mL/min (>90) BUN/Creatinine Ratio 22.8 (10.0-20.0) Serum Glucose 102 mg/dL (74-106) Calcium Level 8.3 mg/dL (8.7-10.4) Magnesium Level 1.9 mg/dL (1.6-2.6) Total Bilirubin 0.4 mg/dL (0.2-1.0) Aspartate Amino Transferase (AST) 38 U/L (13-40) Alanine Aminotransferase (ALT) 32 U/L (7-40) Alkaline Phosphatase 144 U/L (46-116) Total Protein 5.3 g/dL (5.7-8.2) Albumin 2.8 g/dL (3.2-4.8) Phosphorus Level 4.9 mg/dL (2.4-5.1) Vitamin D 25-Hydroxy 43.0 ng/mL (30.0-100) Thyroid Stimulating Hormone (TSH) 1.01 uIU/mL (0.55-4.78) Urine Creatinine 22.99 mg/dL (30.0-125.0) Urine Sodium 67 mmol/L (40-220) Urine Total Protein 115.1 mg/dL (1-14) Test 07/23/24 06:00 07/22/24 20:59 07/22/24 18:44 07/22/24 15:01 Hemoglobin A1c 7.4 % A1C (<5.7) Ferritin 48.7 ng/mL (22-322) Troponin I High Sensitivity 20 ng/L (</=54) Lactic Acid Level 0.7 mmol/L (0.4-2.0) Prothrombin Time 10.9 sec (9.3-11.8) Prothrombin Time INR 1.03 (0.9-1.15) Activated Partial Thromboplast Time 30.8 SEC (24.5-34.5) D-Dimer, Quantitative 1.51 mg/L FEU (0.0-0.49) B-Type Natriuretic Peptide 1014.31 pg/mL (0-100) Test 07/22/24 13:56 Urine Color Yellow (Yellow) Urine Clarity Clear (Clear) Urine pH 6.0 (5.0-9.0) Urine Specific [place] 1.018 (1.001-1.035) Urine Protein 3+ (Negative) Urine Ketones Negative (Negative) Urine Blood 2+ /uL (Negative) Urine Nitrite Negative (Negative) Urine Bilirubin Negative (Negative) Urine Urobilinogen Normal mg/dL (Negative) Urine Leukocyte Esterase Negative /uL (Negative) Urine RBC 2 /hpf (0 - 3) Urine Microscopic WBC 2 /HPF (0-3) Urine Squamous Epithelial Cells Few /hpf (<5) Urine Bacteria None seen /hpf (None Seen) Urine Mucus Few (None Seen) Urine Glucose 1+ mg/dL (Normal) Other Laboratory Tests 07/27/24 04:22 Brief Hx & Hospital Course: HPI Patient is a 54-year-old male past medical history of type 2 diabetes mellitus, hypertension, hyperlipidemia came to the ER with a chief complaint of worsening shortness of breath for 3 weeks. Patient reports that since the last 3 weeks he has been having worsening shortness of breath with difficulty performing tasks of daily life, functional class 3. Patient also reported increasing bilateral pedal edema which started the same time around 3 weeks ago and now the edema is up to the upper tibia. Patient denied having chest pain any time in the last 3 weeks, no dizziness, palpitations or loss of consciousness. Patient reports he also had cough in the last 3 weeks with the associated whitish to yellow sputum. Patient denied having fever but reported chills. Past medical history: As per HPI Past surgical history: None Social history: Patient was with family and denies smoking, alcohol, drug use Medications: Enalapril 5 mg b.i.d., metformin 1000 mg b.i.d., glipizide 10 mg q.d. Brief hospital course Patient came to the hospital with a chief complaint of worsening shortness of breath and bilateral pitting edema in the lower extremities. Echocardiogram was done which showed decreased LV ejection fraction 30% which was significant decrease compared to previous echo in September 2023 at which time patient had LVEF 55% with grade 1 diastolic dysfunction. Patient was given IV Lasix and was started on guideline directed medical therapy with carvedilol, Jardiance and home enalapril was switched to losartan. Cardiology were consulted for further cardiac workup but medical management at this point with a advised and patient to be followed up in the outpatient clinic for further workup. Over the course of hospital stay patient had a total negative balance of 6 L following which his shortness of breath improved significantly and with the bilateral pitting edema also improved significantly. Patient was started on Entresto which he tolerated well. Patient discharged in stable condition to home. Discharge plan Medications: Entresto 49-51 b.i.d., carvedilol 12.5 mg b.i.d., Jardiance 10 mg, aspirin 81 mg, atorvastatin 40 mg Furosemide 40 mg b.i.d. 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 Diet: Low-sodium diet advised Consults/Reason for consult Nephrology consultation for THIERRY on CKD vs CKD Cardiology consultation for suspected CHF exacerbation Operations or Procedures Echocardiogram 1. DILATED CARDIOMYOPATHY 2. LV EF IS 30% AND IS MODERATELY REDUCED 3. MODERAE DEGREE LV AND RV HYPOKINESIS GLOBAL HYPOKINESIS 4. MILD PERICARDIAL EFFUSION 5. NORMAL VALVES 6. MODERATELY SEVERE PULMONARY HYPERTENSION RVSP IS 51 MM OF HG AND IS MODERATELY HIGH Condition at Discharge: Good Final Diagnosis/Problems List # Acute exacerbation of suspected heart failure with preserved ejection fraction # hypertensive heart disease with diastolic heart failure # community-acquired pneumonia likely due to Gram-positive/negative/atypical bacteria # uncontrolled type 2 diabetes mellitus with hyperglycemia # THIERRY on CKD likely hemodynamically mediated due to VMN Discharge Disposition: Home Discharge Instruct/Medications Diet: Cardiac 2g Na,low cholest Diet comment: Strict diet compliance recommended Activity: No Restrictions, As Tolerated Follow Up/Referral: Follow up in the [facility] clinic in one week on friday08/03/2024 with / for further management Medications: as per EMR Furosemide 40mg bid for 4 days followed by furosemide 40mg once daily Discharge Statement: "Patient was advised to return to the ER or call 911 if any headaches, dizziness, shortness of breath, chest pain, abdominal pain, bleeding, fevers, or worsening of medical condition. Patient was counseled about treatment plan, medications, possible side effects, patientverbalized understanding. All questions were answered to the best of my ability. This discharge took greater then 30 minutes in planning, reviewing documentation, counseling the patient, and discussing with other team members." ASSESSMENT ASSESSMENT Assessment # Acute exacerbation of suspected heart failure with preserved ejection fraction # hypertensive heart disease with diastolic heart failure # community-acquired pneumonia likely due to Gram-positive/negative/atypical bacteria # uncontrolled type 2 diabetes mellitus with hyperglycemia # THIERRY on CKD likely hemodynamically mediated due to VMN IZZY CORMIER RESIDENT Jul 27, 2024 19:41
--- NOTE | 2024-07-27 22:27 | DVHPN2 ---
Progress Note - Dictate Date Seen: Jul 27, 2024 Medical Necessity Reason Pt with a Central, PICC or Fol: No Subjective Patient was seen and evaluated in follow up. Patient has no new complaints at this time. Patient denies any cardiac symptoms. Patient is cardiac stable for discharge. Telemetry reviewed. vital signs Vital Sign Date Time Temp Pulse Resp B/P (MAP) Pulse Ox O2 Delivery O2 Flow Rate FiO2 07/27/24 15:03 36.3 74 07/27/24 12:58 18 130/64 (86) 96 07/27/24 08:05 Room Air* 0 21 Total Intake and Output 07/26/24 07/26/24 07/27/24 15:00 23:00 07:00 Intake Total 50 ml 1200 ml 0 ml Output Total 2300 ml Balance 50 ml -1100 ml 0 ml objective GENERAL: Awake, alert, oriented. LUNGS: Diminished breath sounds. CARDIOVASCULAR: Heart sounds are good. ABDOMEN: Soft. EXT: BLE edema. laboratory and microbiology Laboratory Tests 07/27/24 04:22 Test 07/27/24 04:22 Range/Units Serum Glucose 102 74-106 mg/dL Problem List Acute CHF exacerbation. THIERRY. Bilateral pneumonia. Assessment/Plan Continued all current supportive medical care. Dilaudid and [place] for pain management. Amlodipine, Coreg. Lipitor. IV antibiotics as ordered. Diuretics with Lasix. IV Hydralazine for SBP> 160. Additional plan as per the hospital course. Dietary Evaluation Review Comments: 1) Add 60g CCHO restriction to cardiac diet order. 2) Continue to encourage optimal PO intake 3) Refer to outpatient RD/CD[facility] for diabetes education d/t uncontrolled HbA1c - 7.4% 4) Follow-up with cardiology and nephrology Expected Outcomes/Goals: 1) appetite and labs to improve 2) F/u in 5 days Plan discussed with: Patient AJIT BREWER MD Jul 27, 2024 22:27
== END 2024-07-27 15:33 | disposition home or self-care (01) | DRG 137 ==
LOC: ER 13:28 → OVERFLOW 17:51 → TELE-EAST 22:23 → EAST 07-26 22:19
PROVIDERS: ADMIT Student in an Organized Health Care Education/Training Program; ATTEND Student in an Organized Health Care Education/Training Program
DX: J15.69 Pneumonia due to other Gram-negative bacteria (principal); N17.0 Acute kidney failure with tubular necrosis; I50.33 Acute on chronic diastolic (congestive) heart failure; N18.31 Chronic kidney disease, stage 3a; J15.9 Unspecified bacterial pneumonia; E11.8 Type 2 diabetes mellitus with unspecified complications; I13.0 Hypertensive heart and chronic kidney disease with heart failure and stage 1 through stage 4 chronic kidney disease, or unspecified chronic kidney disease; G89.29 Other chronic pain; E11.22 Type 2 diabetes mellitus with diabetic chronic kidney disease; E78.5 Hyperlipidemia, unspecified; E11.65 Type 2 diabetes mellitus with hyperglycemia; Z79.2 Long term (current) use of antibiotics; Z79.84 Long term (current) use of oral hypoglycemic drugs; Z79.4 Long term (current) use of insulin; Z83.3 Family history of diabetes mellitus; R15.9 Full incontinence of feces
CPT/HCPCS: 36415; 71045; 71275; 80053; 81001; 82306; 82570; 82728; 82962; 83036; 83605; 83735; 83880; 84100; 84156; 84300; 84443; 84484; 85025; 85379; 85610; 85730; 87040; 93005; 93306; 99291; G0378; J1815; J2405

== ENCOUNTER → 2024-08-16 | Outpatient (CLI) | payer MEDICAID ==
[~2024-08-16] MED LIST changes: -AML5T PO; +ASPI-325 PO; -ATOR20TA50 PO; +ATOR40TA52 PO; -AUG875T PO; +CARV-216 PO; +FURO40TA4 PO; +GLIP5TAB21 PO; -INSLANTI SC; -METO25TA93 PO; +SACU1TAB PO
[2024-08-16 10:07] LABS: Basophils # (auto) 0.1 10 ^3/uL (0-0.2); Basophils % (auto) 1.4 % (0.0-2.0); Eosinophils # (auto) 0.3 10 ^3/uL (0-0.8); Hematocrit 26.1 % (41.0-53.0); Hemoglobin 8.5 g/dL (13.5-17.5); Lymphocytes # (auto) 1.1 10 ^3/uL (0.4-5.4); Mean Corpuscular Hemoglobin 24.9 pg (28.0-32.0); Monocytes # (auto) 0.7 10 ^3/uL (0-1.3)
[2024-08-16 10:10] LABS: Lymphocytes % (auto) 19.7 % (10.0-50.0); Mean Corpuscular Hgb Conc. 32.5 g/dL (32.0-36.0); Mean Corpuscular Volume 76.5 fL (80.0-100.0); Monocytes % (auto) 11.4 % (0.0-12.0); Neutrophils # (auto) 3.5 10 ^3/uL (1.6-8.6); Neutrophils % (auto) 61.5 % (37.0-80.0); Nucleated Red Blood Cells % 0.1 %; Platelet Count (auto) 233 10^3/uL (140-450); Red Blood Cells 3.41 10^6/uL (4.5-5.90); Red Cell Distribution Width 17.5 % (11.8-14.3); White Blood Cell 5.7 10^3/uL (4.4-10.8)
[2024-08-16 10:20] LABS: Alanine Aminotransferase 22 U/L (7-40); Anion Gap 7 (5-15); BUN/Creatinine Ratio 28.5 (10.0-20.0); Calcium 9.4 mg/dL (8.7-10.4); Carbon Dioxide 25 mmol/L (20-31); Sodium 141 mmol/L (136-145); Total Protein 6.5 g/dL (5.7-8.2); Triglycerides 73 mg/dL (< 150)
[2024-08-16 10:21] LABS: Albumin 3.7 g/dL (3.2-4.8); Aspartate Aminotransferase 22 U/L (13-40); Bilirubin, Total 0.7 mg/dL (0.2-1.0); Cholesterol 163 mg/dL (< 200)
[2024-08-16 10:24] LABS: Alkaline Phosphatase 132 U/L (46-116); Blood Urea Nitrogen 45 mg/dL (9-23); Chloride 109 mmol/L (98-107); Glucose 128 mg/dL (74-106); HDL Cholesterol 36 mg/dL (40-59); LDL Cholesterol 104 mg/dL (< 100)
== END | disposition home or self-care (01) ==
LOC: LAB 09:32
PROVIDERS: ATTEND Internal Medicine
DX: I11.0 Hypertensive heart disease with heart failure (principal); I50.9 Heart failure, unspecified
CPT/HCPCS: 36415; 80053; 80061; 82274; 82306; 83036; 84439; 84443; 85025

== ENCOUNTER → 2024-09-15 | Outpatient (CLI) | payer MEDICAID ==
[2024-09-15 15:06] LABS: % Iron Saturation 8.5 % (20-55)
[2024-09-15 15:07] LABS: Alanine Aminotransferase 34 U/L (7-40); Albumin 3.9 g/dL (3.2-4.8); Anion Gap 8 (5-15); Aspartate Aminotransferase 25 U/L (13-40); BUN/Creatinine Ratio 25.8 (10.0-20.0); Bilirubin, Total 0.4 mg/dL (0.2-1.0); Calcium 8.9 mg/dL (8.7-10.4); Carbon Dioxide 23 mmol/L (20-31); Chloride 103 mmol/L (98-107); Potassium 4.8 mmol/L (3.5-5.1); Total Protein 6.9 g/dL (5.7-8.2)
[2024-09-15 15:16] LABS: Alkaline Phosphatase 154 U/L (46-116); Blood Urea Nitrogen 46 mg/dL (9-23); Glucose 214 mg/dL (74-106); Sodium 134 mmol/L (136-145)
[2024-09-15 16:25] LABS: Basophils # (auto) 0.1 10 ^3/uL (0-0.2); Basophils % (auto) 0.8 % (0.0-2.0); Eosinophils # (auto) 0.2 10 ^3/uL (0-0.8); Eosinophils % (auto) 1.7 % (0.0-7.0); Hematocrit 30.8 % (41.0-53.0); Hemoglobin 10.2 g/dL (13.5-17.5); Lymphocytes # (auto) 1.6 10 ^3/uL (0.4-5.4); Neutrophils # (auto) 6.4 10 ^3/uL (1.6-8.6); White Blood Cell 9.2 10^3/uL (4.4-10.8)
[2024-09-15 16:28] LABS: Lymphocytes % (auto) 17.4 % (10.0-50.0); Mean Corpuscular Hgb Conc. 33.3 g/dL (32.0-36.0); Monocytes % (auto) 10.5 % (0.0-12.0); Neutrophils % (auto) 69.6 % (37.0-80.0); Platelet Count (auto) 298 10^3/uL (140-450); Red Cell Distribution Width 20.4 % (11.8-14.3)
== END | disposition home or self-care (01) ==
LOC: LAB 13:55
PROVIDERS: ATTEND Internal Medicine
DX: I10 Essential (primary) hypertension (principal)
CPT/HCPCS: 36415; 80053; 83540; 83550; 85025

== ENCOUNTER → 2024-09-20 | Outpatient (CLI) | payer MEDICAID ==
[2024-09-20 15:22] LABS: Urine Bacteria MOD /hpf (None Seen); Urine Blood TRACE /uL (Negative); Urine Clarity Clear (Clear); Urine Color Light-Yellow (Yellow); Urine Hyaline Cast FEW /lpf (0 - 2); Urine Mucus FEW (None Seen); Urine Protein, UAD 3+ (Negative); Urine Specific Gravity 1.014 (1.001-1.035); Urine Squamous Epithelial Cell FEW /hpf (<5); Urine Urobilinogen Normal (Negative); Urine WBC 3 /HPF (0-3)
[2024-09-20 15:29] LABS: Potassium 4.4 mmol/L (3.5-5.1)
[2024-09-20 15:30] LABS: Calcium 9.7 mg/dL (8.7-10.4)
[2024-09-20 15:31] LABS: Basophils # (auto) 0.1 10 ^3/uL (0-0.2); Eosinophils # (auto) 0.1 10 ^3/uL (0-0.8); Hemoglobin 10.6 g/dL (13.5-17.5); Lymphocytes # (auto) 1.2 10 ^3/uL (0.4-5.4); Lymphocytes % (auto) 14.4 % (10.0-50.0)
[2024-09-20 15:35] LABS: Albumin 3.7 g/dL (3.2-4.8); BUN/Creatinine Ratio 25.5 (10.0-20.0); Basophils % (auto) 0.7 % (0.0-2.0); Eosinophils % (auto) 1.5 % (0.0-7.0); Hematocrit 31.7 % (41.0-53.0); Mean Corpuscular Hemoglobin 24.6 pg (28.0-32.0); Mean Corpuscular Hgb Conc. 33.4 g/dL (32.0-36.0); Mean Corpuscular Volume 73.7 fL (80.0-100.0); Monocytes # (auto) 0.6 10 ^3/uL (0-1.3); Monocytes % (auto) 6.8 % (0.0-12.0); Neutrophils # (auto) 6.3 10 ^3/uL (1.6-8.6); Neutrophils % (auto) 76.6 % (37.0-80.0); Platelet Count (auto) 374 10^3/uL (140-450); Red Cell Distribution Width 20.3 % (11.8-14.3); White Blood Cell 8.2 10^3/uL (4.4-10.8)
[2024-09-20 15:37] LABS: Phosphorus 4.6 mg/dL (2.4-5.1)
[2024-09-20 15:38] LABS: Creatinine, Urine 75.06 mg/dL (30.0-125.0)
[2024-09-20 15:40] LABS: Urine Protein/Creatinine Ratio 7.11
[2024-09-20 15:41] LABS: Protein, Urine 533.6 mg/dL (1-14)
[2024-09-20 15:58] LABS: Uric Acid 5.9 mg/dL (3.7-9.2)
[2024-09-21 05:08] LABS: Immunoglobulin A 338 mg/dL (90-386); Immunoglobulin G, Serum 1116 mg/dL (603-1613); Immunoglobulin M 45 mg/dL (20-172)
[2024-09-22 14:07] LABS: Albumin Urine 68.6 % (.); Alpha-1-Globulin Urine 0.8 % (.); Alpha-2-Globulin Urine 8.5 % (.); Beta Globulin Urine 10.9 % (.); Gamma Globulin Urine 11.1 % (.); Protein Total Urine 529.2 mg/dL (Not Estab.)
== END | disposition home or self-care (01) ==
LOC: LAB 14:38
PROVIDERS: ATTEND Internal Medicine Nephrology
DX: E11.22 Type 2 diabetes mellitus with diabetic chronic kidney disease (principal); N18.30 Chronic kidney disease, stage 3 unspecified; E21.3 Hyperparathyroidism, unspecified; N39.0 Urinary tract infection, site not specified; M10.9 Gout, unspecified; E55.9 Vitamin D deficiency, unspecified; D63.1 Anemia in chronic kidney disease; R80.9 Proteinuria, unspecified
CPT/HCPCS: 36415; 80069; 81001; 82306; 82570; 82784; 83970; 84155; 84156; 84165; 84166; 84550; 85025; 86334

== ENCOUNTER 2024-09-21 15:54 | Emergency (ER) | payer MEDICAID ==
[~2024-09-21] VITALS: Ht 188 cm; Wt 76.5 kg
--- NOTE | 2024-09-21 16:40 | DVH ---
CHEST RADIOGRAPH Indication: SOB Technique: Single frontal view of the chest was obtained Comparison: XY CHEST PORTABLE on DOS: 07/22/24, XY CHEST PORTABLE on DOS: 04/10/24 FINDINGS: Lines and Tubes: None Lungs: No focal consolidation. Pleura: No effusion. No pneumothorax. Cardiomediastinal contours: Unremarkable Bones: No acute osseous abnormality. IMPRESSION: 1. No acute cardiopulmonary disease.
--- NOTE | 2024-09-21 16:42 | ED.PDOC ---
History of Present Illness HPI Comments 54-year-old male with PMHx Anemia presents with a chief complaint of dizziness, fatigue, and melena x months. Patient mentions that he has been having melena for months and finally saw a GI doctor whom scheduled him for a colonoscopy, but not until December 2024. Patient denies chest pain, SOB, headache, or recent falls. Chief Complaint: Dizziness Time Seen by MD: 16:38 Primary Care Provider: joseph Power Notes: Medications, Allergies Allergies: Coded Allergies: NO KNOWN ALLERGIES (Unverified , 09/17/24) Home Meds Active Scripts Furosemide (Furosemide) 40 Mg Tab, 40 MG PO DAILY for 30 Days, #30 TAB 0 Refills Prov:IZZY MISTRY [facility] 07/27/24 Furosemide (Furosemide) 40 Mg Tab, 40 MG PO BID for 4 Days, #8 TAB 0 Refills Prov:IZZY MISTRY [facility] 07/27/24 Sacubitril-Valsartan (Entresto 24-26 mg) 1 Tab Tab, 2 TAB PO BID for 30 Days, #120 TAB Prov:IZZY MISTRY [facility] 07/27/24 Ergocalciferol (VITAMIN D 02192 UNIT) 50,[address] [place], [address] UNIT PO Q7D for 30 Days, #4 CAP Prov:IZZY MISTRY [facility] 07/27/24 Empagliflozin (Jardiance) 10 Mg Tab, 10 MG PO DAILY for 30 Days, #30 [facility]/24 Carvedilol (COREG) 12.5 Mg Tab, 12.5 MG PO Q12HR for 30 Days, #60 TAB Prov:IZZY MISTRY [facility] 07/27/24 Atorvastatin Calcium (ATORVASTATIN CALCIUM) 40 Mg Tab, 40 MG PO HS for 30 Days, #30 TAB 0 Refills Prov:IZZY MISTRY [facility] 07/27/24 Aspirin (Aspirin Low Dose) 81 Mg Tab, 81 MG PO DAILY for 30 Days, #30 TAB Prov:IZZY MISTRY [facility] 07/27/24 Lancets (Freestyle Lancets) Lancets Mis, ' XX DAILY, #120 1 Refill check blood glucose daily Prov:IZZY CORMIER [facility] 07/27/24 Blood Glucose Monitoring Suppl (EASY TOUCH GLUCOSE MONITO) Monitor Kit, AC XX DAILY, #1 1 Refill check blood glucose daily Prov:IZZY CORMIER 07/27/24 Metformin Hydrochloride (Metformin Hcl) 500 Mg Tab, 2 TAB PO BID for 30 Days, #120 TAB 3 Refills Prov:PARMINDER BURNETTE 04/13/24 Ferrous Sulfate (Ferrous Sulfate) 325 Mg Tab, 325 MG PO DAILY for 30 Days, #30 TAB 2 Refills Prov:PARMINDER BURNETTE RESIDENT 10/30/23 Reported Medications Glipizide (Glipizide) 5 Mg Tab, 1 TAB PO BID, #60 TAB 3 Refills 07/22/24 Information Source: Patient Mode of Arrival: Ambulatory Severity: Moderate Timing: Months Duration: Intermittent Prehospital treatment: None Past Medical History PAST MEDICAL HISTORY: DM, High Lipids, HTN Surgical History: Denies all surgeries Family History Family History: Reviewed,noncontributory to illness Social History Smoker: Non-Smoker Alcohol: Denies ETOH Use Drugs: Denies Drug Use Lives In: Home Constitutional: reports: fatigue; denies: chills, diaphoresis, fever, malaise, sweats, weakness, others EENTM: denies: blurred vision, double vision, ear bleeding, ear discharge, ear drainage, ear pain, ear ringing, eye pain, eye redness, hearing loss, mouth pain, mouth swelling, nasal discharge, nose bleeding, nose congestion, nose pain, photophobia, tearing, throat pain, throat swelling, voice changes, others Respiratory: denies: cough, hemoptysis, orthopnea, SOB at rest, shortness of breath, SOB with excertion, stridor, wheezing, others Cardiovascular: denies: chest pain, dizzy spells, diaphoresis, Dyspnea on exertion, edema, irregular heart beat, left arm pain, lightheadedness, palpitations, PND, syncope, others Gastrointestinal: reports: melena; denies: abdomen distended, abdominal pain, blood streaked bowels, constipated, diarrhea, dysphagia, difficulty swallowing, hematemesis, nausea, poor appetite, poor fluid intake, rectal bleeding, rectal pain, vomiting, others Genitourinary: denies: burning, dysuria, flank pain, frequency, hematuria, incontinence, penile discharge, penile sore, pain, testicle pain, testicle swelling, urgency, others Neurological: reports: dizziness; denies: fainting, headache, left sided numbness, left sided weakness, numbness, paresthesia, pre-existing deficit, right sided numbness, right sided weakness, seizure, speech problems, tingling, tremors, weakness, others Musculoskeletal: denies: back pain, gout, joint pain, joint swelling, muscle pain, muscle stiffness, neck pain, others Integumetry: denies: bruises, change in color, change in hair/nails, dryness, laceration, lesions, lumps, rash, wounds, others Allergic/Immunocompromised: denies: Difficulty Healing, Frequent Infections, Hives, Itching, others Hematologic/Lymphatic: denies: anemia, blood clots, easy bleeding, easy bruising, swollen glands, others Endocrine: denies: excessive hunger, excessive sweating, excessive thirst, excessive urination, flushing, intolerance to cold, intolerance to heat, unexplained weight gain, unexplained weight loss, others Psychiatric: denies: anxiety, bipolar disorder, depression, hopeless, panic disorder, schizophrenia, sleepless, suicidal, others All Other Systems: Reviewed and Negative Physical Exam General Appearance: No Apparent Distress, Normal HEENT: Normal ENT Inspection, Pharynx Normal, TMs Normal Neck: Full Range of Motion, Non-Tender, Normal, Normal Inspection Respiratory: Chest Non-Tender, Lungs Clear, No Accessory Muscle Use, No Respiratory Distress, Normal Breath Sounds Cardiovascular: No Edema, No JVD, No Murmur, No Gallop, Normal Peripheral Pulses, Regular Rate/Rhythm Breast Exam: Deferred Gastrointestinal: No Organomegaly, Non Tender, No Pulsatile Mass, Normal Bowel Sounds, Soft Genitalia: Deferred Pelvic: Deferred Rectal: Deferred Extremities: No calf tenderness, Normal capillary refill, Normal inspection, Normal range of motion, Non-tender, No pedal edema Musculoskeletal : Apperance: Normal Neurologic: Alert, transfer iron operator II-XII nml as Tested, No Motor Deficits, Normal Affect, Normal Mood, No Sensory Deficits Cerebellar Function: Normal Reflexes: Normal Skin: Dry, Normal Color, Warm Lymphatic: No Adenopathy Was a procedure done? Was a procedure done?: No Differential Dx Considerations may include: Anemia, chronic for the last, CHF exacerbation, poor ejection fraction X-Ray, Labs, Meds, VS Vital Signs Date Time Temp Pulse Resp B/P (MAP) Pulse Ox O2 Delivery O2 Flow Rate FiO2 09/21/24 16:18 80 09/21/24 16:15 98.3 86 16 94/59 (71) 100 98.3 Lab Test 09/21/24 16:36 09/21/24 16:12 Range/Units White Blood Count 6.6 4.4-10.8 10^3/uL Red Blood Count 4.31 L 4.5-5.90 10^6/uL Hemoglobin 10.5 L 13.5-17.5 g/dL Hematocrit 32.3 L 41.0-53.0 % Mean Corpuscular Volume 74.9 L 80.0-100.0 fL Mean Corpuscular Hemoglobin 24.4 L 28.0-32.0 pg Mean Corpuscular Hemoglobin Concent 32.5 32.0-36.0 g/dL Red Cell Distribution Width 20.3 H 11.8-14.3 % Platelet Count 397 140-450 10^3/uL Mean Platelet Volume 7.7 6.9-10.8 fL Neutrophils (%) (Auto) 76.4 37.0-80.0 % Lymphocytes (%) (Auto) 14.7 10.0-50.0 % Monocytes (%) (Auto) 7.4 0.0-12.0 % Eosinophils (%) (Auto) 0.7 0.0-7.0 % Basophils (%) (Auto) 0.8 0.0-2.0 % Neutrophils # (Auto) 5.0 1.6-8.6 10 ^3/uL Lymphocytes # (Auto) 1.0 0.4-5.4 10 ^3/uL Monocytes # (Auto) 0.5 0-1.3 10 ^3/uL Eosinophils # (Auto) 0 0-0.8 10 ^3/uL Basophils # (Auto) 0.1 0-0.2 10 ^3/uL Nucleated Red Blood Cells 0.1 % Sodium Level 135 L 136-145 mmol/L Potassium Level 4.0 3.5-5.1 mmol/L Chloride Level 106 98-107 mmol/L Carbon Dioxide Level 22 20-31 mmol/L Anion Gap 7 5-15 Blood Urea Nitrogen 47 H 9-23 mg/dL Creatinine 1.77 H 0.700-1.30 mg/dL Glomerular Filtration Rate Calc 46 >90 mL/min BUN/Creatinine Ratio 26.6 H 10.0-20.0 Serum Glucose 181 H 74-106 mg/dL Calcium Level 9.4 8.7-10.4 mg/dL Total Bilirubin 0.5 0.2-1.0 mg/dL Aspartate Amino Transferase (AST) 21 13-40 U/L Alanine Aminotransferase (ALT) 33 7-40 U/L Alkaline Phosphatase 154 H 46-116 U/L B-Type Natriuretic Peptide 315.33 0-100 pg/mL Total Protein 6.6 5.7-8.2 g/dL Albumin 3.6 3.2-4.8 g/dL POC Glucose 171 H 70-106 mg/dl X-Ray, Labs, Meds, VS Comment Imaging: X-rays and CT scans were reviewed and interpreted by this provider, imaging shows no fractures and no pathological disease. Pending radiology review. Laboratory: Labs reviewed and interpreted by this provider. Patient's hemoglobin was 10, no significant blood loss, patient does show continued chronic versus acute kidney injury. Patient has prior medical visits reviewed. Med reconciliation performed Vital signs reviewed Dr. Lopez tours hostess called. He states that patient is a new patient for him, he did recommend one year of packed red blood cells because facilitate. Patient is currently hemodynamically stable. Hemoglobin 10. It is recommended that patient follow up tomorrow if symptoms worsen for possible transfusion. Patient will be unable to receive transfusion for another additional hours as there was no bed for him to play placed in and monitor while he receives transfusion currently. Time of 1ST Reevaluation: 17:09 Reevaluation 1ST: Unchanged Patient Education/Counseling: Diagnosis, Treatment, Need For Follow Up (Follow up in 24 hours if symptoms worsen.) Family Education/Counseling: No Family Present Departure 1 Departure Time of Disposition: 21:52 Impression: Primary Impression: GI bleed Qualified Codes: K92.1 - Melena Additional Impression: Acute renal injury Disposition: 01 HOME / SELF CARE / HOMELESS Condition: Stable Discharged With: Self Critical Care Note Critical Care Time?: No Stability Stability form required: No Heart Score Heart Score: Heart Score Response (Comments) Value History N/A 0 EKG N/A 0 Age N/A 0 Risk Factors N/A 0 Troponin N/A 0 Total 0 I personally scribed for VITA MORE ([email or web address]) on 09/21/24 at 16:42. Electronically submitted by Casey Calderon ([email or web address]). VITA MORE September 21, 2024 16:42
[2024-09-21 16:53] LABS: Basophils # (auto) 0.1 10 ^3/uL (0-0.2); Basophils % (auto) 0.8 % (0.0-2.0); Eosinophils # (auto) 0 10 ^3/uL (0-0.8); Eosinophils % (auto) 0.7 % (0.0-7.0); Hematocrit 32.3 % (41.0-53.0); Hemoglobin 10.5 g/dL (13.5-17.5); Lymphocytes % (auto) 14.7 % (10.0-50.0); Mean Corpuscular Hemoglobin 24.4 pg (28.0-32.0); Mean Corpuscular Hgb Conc. 32.5 g/dL (32.0-36.0); Mean Corpuscular Volume 74.9 fL (80.0-100.0); Monocytes # (auto) 0.5 10 ^3/uL (0-1.3); Monocytes % (auto) 7.4 % (0.0-12.0); Neutrophils % (auto) 76.4 % (37.0-80.0); Nucleated Red Blood Cells % 0.1 %; Platelet Count (auto) 397 10^3/uL (140-450); Red Blood Cells 4.31 10^6/uL (4.5-5.90); White Blood Cell 6.6 10^3/uL (4.4-10.8)
[2024-09-21 16:54] LABS: Red Cell Distribution Width 20.3 % (11.8-14.3)
[2024-09-21 17:08] LABS: Alanine Aminotransferase 33 U/L (7-40); Albumin 3.6 g/dL (3.2-4.8); Anion Gap 7 (5-15); Aspartate Aminotransferase 21 U/L (13-40); BUN/Creatinine Ratio 26.6 (10.0-20.0); Bilirubin, Total 0.5 mg/dL (0.2-1.0); Calcium 9.4 mg/dL (8.7-10.4); Carbon Dioxide 22 mmol/L (20-31); Chloride 106 mmol/L (98-107); Total Protein 6.6 g/dL (5.7-8.2)
[2024-09-21 17:10] LABS: Alkaline Phosphatase 154 U/L (46-116); Blood Urea Nitrogen 47 mg/dL (9-23); Glucose 181 mg/dL (74-106); Sodium 135 mmol/L (136-145)
[2024-09-21 23:09] VITALS: BP 158/80; PULSE 88; RESP 16; TEMP 98.3; O2SAT 100
--- NOTE | 2024-09-23 09:45 | ECG ---
[facility] Test Date: 2024-09-21 Test Time: 16:18:30 Pat Name: XENIA AGUIRRE Department: ER Room: Gender: M Director Of Radiology: ANDERSON : 1970 Requested By: VITA MORE Order Number: [id number] Reading MD: Umang Chandra Measurements Intervals [place] Rate: 80 P: 81 AK: 155 QRS: 75 QRSD: 84 T: 53 QT: 403 QTc: 465 Interpretive Statements Sinus rhythm Left ventricular hypertrophy Baseline wander in lead(s) V4,V5 Electronically Signed On 09-23-2024 13:10:44 PDT by Umang Chandra Please click the below link to view image of tracing.
== END 2024-09-21 23:10 | disposition home or self-care (01) ==
LOC: ER 15:54
DX: K92.2 Gastrointestinal hemorrhage, unspecified (principal); N17.9 Acute kidney failure, unspecified; E11.9 Type 2 diabetes mellitus without complications; I10 Essential (primary) hypertension; E78.5 Hyperlipidemia, unspecified; Z79.899 Other long term (current) drug therapy; Z79.82 Long term (current) use of aspirin
CPT/HCPCS: 36415; 71045; 80053; 82947; 82962; 83880; 85025; 86850; 86900; 86901; 93005

== ENCOUNTER 2024-10-25 09:59 | Day surgery (SDC) | payer MEDICAID ==
[2024-10-22 13:51] LABS: Basophils # (auto) 0.1 10 ^3/uL (0-0.2); Basophils % (auto) 0.7 % (0.0-2.0); Eosinophils # (auto) 0.1 10 ^3/uL (0-0.8); Hemoglobin 9.9 g/dL (13.5-17.5); Neutrophils # (auto) 5.9 10 ^3/uL (1.6-8.6); Platelet Count (auto) 273 10^3/uL (140-450)
[2024-10-22 13:53] LABS: Eosinophils % (auto) 1.8 % (0.0-7.0); Hematocrit 29.5 % (41.0-53.0); Lymphocytes # (auto) 1.2 10 ^3/uL (0.4-5.4); Lymphocytes % (auto) 15.2 % (10.0-50.0); Mean Corpuscular Hemoglobin 25.5 pg (28.0-32.0); Mean Corpuscular Hgb Conc. 33.6 g/dL (32.0-36.0); Monocytes # (auto) 0.7 10 ^3/uL (0-1.3); Monocytes % (auto) 8.7 % (0.0-12.0); Neutrophils % (auto) 73.6 % (37.0-80.0); Red Blood Cells 3.89 10^6/uL (4.5-5.90)
[2024-10-22 13:57] LABS: INR 0.94 (0.9-1.15); Partial Thromboplastin Time 25.9 SEC (24.5-34.5)
[2024-10-22 13:58] LABS: Red Cell Distribution Width 21.4 % (11.8-14.3)
[2024-10-22 14:09] LABS: Alanine Aminotransferase 22 U/L (7-40); Albumin 3.5 g/dL (3.2-4.8); Anion Gap 9 (5-15); Aspartate Aminotransferase 18 U/L (<34); BUN/Creatinine Ratio 21.2 (10.0-20.0); Bilirubin, Total 0.5 mg/dL (0.2-1.0); Calcium 9.4 mg/dL (8.7-10.4); Carbon Dioxide 25 mmol/L (20-31); Chloride 105 mmol/L (98-107); Potassium 4.4 mmol/L (3.5-5.1); Sodium 139 mmol/L (136-145); Total Protein 6.2 g/dL (5.7-8.2)
[2024-10-22 14:16] LABS: Alkaline Phosphatase 119 U/L (46-116); Blood Urea Nitrogen 39 mg/dL (9-23); Glucose 242 mg/dL (74-106)
[~2024-10-25] VITALS: Ht 188 cm; Wt 79.4 kg
[~2024-10-25 09:59] MED LIST changes: +DICY10CA PO; -METF-370 PO
[2024-10-25] MEDS ORDERED: SODIUM CHLORIDE LOCK 10 ML ONE (12:07)
[2024-10-25 15:05] VITALS: PULSE 92; RESP 14; O2SAT 100
[2024-10-25] MEDS: diphenhdrAMINE HCL 50 MG/1 ML VL ONE (15:13)
[2024-10-25] MEDS: fentaNYL CITRATE 100 MCG/2 ML VL ONE (15:13)
[2024-10-25] MEDS: MIDAZOLAM HCL 5 MG/ML-1ML VIAL ONE (15:13)
[2024-10-25 15:26] VITALS: TEMP 98.2
--- NOTE | 2024-10-25 15:58 | DVHOP2 ---
Operative Report DATE OF OPERATION: 10/25/24 PROCEDURE: Incomplete Colonoscopy with biopsy. PREOPERATIVE INDICATION: The patient is a 54 -year-old male undergoing colonoscopy for evaluation of rectal bleeding and abnormal finding GI tract imaging POSTOPERATIVE DIAGNOSES: 1. 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 SCOPE: Olympus videocolonoscope. ASA CLASS: Two PREOPERATIVE MEDICATIONS: Versed 2 mg, Fentanyl 50 mcg, Benadryl 25 mg PROCEDURE IN DETAIL: After obtaining an informed consent, the patient was placed on left lateral decubitus position. He was then sedated with the above medications. A rectal examination was performed that was normal. The colonoscope was then passed through the anus into the rectosigmoid. Patient had a circumferential obstructing ulcerated mass starting from the proximal rectum at about 5 cm above the anal verge I was not able to advance the colonoscope beyond this ulcerated circumferential mass. Multiple biopsies were obtained. On retroflexion patient had trace internal hemorrhoids. The colonoscope was then withdrawn. The patient tolerated the procedure well without difficulty. WITHDRAWAL TIME: Not Applicable QUALITY OF THE PREP: [place] Bowel Prep score: Not applicable COMPLICATIONS : None SPECIMENS: Rectosigmoid mass biopsies DISPOSITION: Stable D/C to home PLAN: 1. CEA level, CT scan abdomen pelvis, await biopsy results 2. Surgical oncology referral for further management and treatment of the rectosigmoid mass 3. Resume clear liquid diet advance to full liquid 4. Outpatient follow up with me to this week to review results and discuss further management 5. Discussed with patient and recovery room nurse CARLOS ASIF MD Oct 25, 2024 15:58
[2024-10-25 16:05] VITALS: BP 186/198; PULSE 88; RESP 12; O2SAT 99
== END 2024-10-25 16:15 | disposition home or self-care (01) ==
LOC: GI 09:59
PROVIDERS: ATTEND Internal Medicine Gastroenterology
DX: K62.5 Hemorrhage of anus and rectum (principal); C19 Malignant neoplasm of rectosigmoid junction; R93.3 Abnormal findings on diagnostic imaging of other parts of digestive tract; E78.00 Pure hypercholesterolemia, unspecified; K21.9 Gastro-esophageal reflux disease without esophagitis; Z79.899 Other long term (current) drug therapy; Z98.890 Other specified postprocedural states; Z86.2 Personal history of diseases of the blood and blood-forming organs and certain disorders involving the immune mechanism
CPT/HCPCS: 36415; 45380; 80053; 82962; 85025; 85610; 85730; 88305; 88342; J1200; J2250; J3010; J7030

== ENCOUNTER 2024-11-02 11:39 | Outpatient (CLI) | payer MEDICAID ==
[2024-11-02 11:54] LABS: Basophils # (auto) 0.1 10 ^3/uL (0-0.2); Eosinophils # (auto) 0.1 10 ^3/uL (0-0.8); Neutrophils # (auto) 6.1 10 ^3/uL (1.6-8.6)
[2024-11-02 11:55] LABS: Basophils % (auto) 0.9 % (0.0-2.0); Eosinophils % (auto) 1.7 % (0.0-7.0); Hematocrit 29.7 % (41.0-53.0); Lymphocytes # (auto) 1.1 10 ^3/uL (0.4-5.4); Lymphocytes % (auto) 13.5 % (10.0-50.0); Mean Corpuscular Hemoglobin 25.8 pg (28.0-32.0); Mean Corpuscular Hgb Conc. 33.8 g/dL (32.0-36.0); Mean Corpuscular Volume 76.3 fL (80.0-100.0); Monocytes # (auto) 0.8 10 ^3/uL (0-1.3); Monocytes % (auto) 9.3 % (0.0-12.0); Neutrophils % (auto) 74.6 % (37.0-80.0); Platelet Count (auto) 292 10^3/uL (140-450); Red Blood Cells 3.89 10^6/uL (4.5-5.90); Red Cell Distribution Width 19.9 % (11.8-14.3); White Blood Cell 8.2 10^3/uL (4.4-10.8)
[2024-11-02 12:29] LABS: Chloride 105 mmol/L (98-107); Potassium 3.9 mmol/L (3.5-5.1); Sodium 140 mmol/L (136-145)
[2024-11-02 12:30] LABS: Anion Gap 10 (5-15); Carbon Dioxide 25 mmol/L (20-31)
[2024-11-02 12:31] LABS: Calcium 9.5 mg/dL (8.7-10.4)
[2024-11-02 12:35] LABS: BUN/Creatinine Ratio 19.4 (10.0-20.0)
[2024-11-02 12:39] LABS: Blood Urea Nitrogen 37 mg/dL (9-23); Glucose 152 mg/dL (74-106)
== END 2024-11-02 17:00 | disposition home or self-care (01) ==
LOC: LAB 11:39
PROVIDERS: ATTEND Internal Medicine Gastroenterology
DX: C19 Malignant neoplasm of rectosigmoid junction (principal)
CPT/HCPCS: 36415; 80048; 82378; 85025

== ENCOUNTER 2024-12-21 15:55 | Outpatient (CLI) | payer MEDICAID ==
[2024-12-21 16:08] LABS: Hematocrit 26.5 % (41.0-53.0); Hemoglobin 9.2 g/dL (13.5-17.5); Mean Corpuscular Hemoglobin 28.4 pg (28.0-32.0); Mean Corpuscular Volume 81.8 fL (80.0-100.0); Nucleated Red Blood Cells % 0.0 %
[2024-12-21 16:31] LABS: INR 0.96 (0.9-1.15); Partial Thromboplastin Time 26.8 SEC (24.5-34.5); Prothrombin Time 10.2 sec (9.3-11.8)
== END 2024-12-21 17:00 | disposition home or self-care (01) ==
LOC: LAB 15:55
PROVIDERS: ATTEND Internal Medicine
DX: Z01.812 Encounter for preprocedural laboratory examination (principal)
CPT/HCPCS: 36415; 85025; 85610; 85730

== ENCOUNTER 2025-03-17 09:05 | Outpatient (CLI) | payer MEDICAID ==
[2025-03-17 09:22] LABS: Hematocrit 26.8 % (41.0-53.0); Hemoglobin 9.1 g/dL (13.5-17.5); Mean Corpuscular Hemoglobin 29.0 pg (28.0-32.0); Mean Corpuscular Volume 85.6 fL (80.0-100.0); Nucleated Red Blood Cells % 0.3 %
[2025-03-17 10:04] LABS: Alanine Aminotransferase 23 U/L (7-40); Anion Gap 10 (5-15); BUN/Creatinine Ratio 20.0 (10.0-20.0); Bilirubin, Total 0.6 mg/dL (0.2-1.0); Carbon Dioxide 21 mmol/L (20-31); Potassium 3.9 mmol/L (3.5-5.1); Sodium 142 mmol/L (136-145); Total Protein 5.9 g/dL (5.7-8.2); Triglycerides 109 mg/dL (< 150)
[2025-03-17 10:05] LABS: Albumin 3.1 g/dL (3.2-4.8); Alkaline Phosphatase 155 U/L (46-116); Blood Urea Nitrogen 45 mg/dL (9-23); Calcium 8.2 mg/dL (8.7-10.4); Chloride 111 mmol/L (98-107); Cholesterol 226 mg/dL (< 200); Glucose 120 mg/dL (74-106); HDL Cholesterol 32 mg/dL (40-59)
== END 2025-03-17 17:00 | disposition home or self-care (01) ==
LOC: LAB 09:05
PROVIDERS: ATTEND Internal Medicine
DX: I11.0 Hypertensive heart disease with heart failure (principal); I50.22 Chronic systolic (congestive) heart failure
CPT/HCPCS: 36415; 80053; 80061; 82570; 85025